=== PATIENT | female | born 1970 | race Hispanic/Latino ===

== ENCOUNTER 2018-05-16 10:47 | Emergency (ER) | payer MEDICARE, OTHER ==
[~2018-05-16] VITALS: Ht 157.5 cm; Wt 103.9 kg
[~2018-05-16 10:47] MED LIST: ADVAIR 500-501 EACH IH; BACLOFEN10 MG PO; CARAFATE1 GM/10 ML PO; CARBAMAZEPINE PO; CETIRIZINE HCL10 MG PO; DICYCLOMINE HCL10 MG PO; DIOVAN160 MG PO; ENDOCET 10-3251 EACH PO; FUROSEMIDE40 MG PO; GABAPENTIN300 MG PO; GI cocktail PO; HYDROCHLOROTHIA25 MG PO; HYDROXYZINE HCL25 MG PO; IPRAT-ALBUT 0.5-3 ML INH; LIDOCAINE TOPICAL TOP; Linzess PO; MONTELUKAST SOD10 MG PO; MOVANTIK PO; MS CONTIN30 MG PO; MULTIVITAMIN PO; NALOXONE IM; OMEGA-3 FISH1000 MG PO; OMEPRAZOLE40 MG PO; PANTOPRAZOLE SO40 MG PO; PHENDIMETRAZINE35 MG PO; PROAIR HFA INH8.5 GM INH; SERTRALINE HCL100 MG PO; SINGULAIR10 MG; STOOL SOFTENER100 MG PO; SUMATRIPTAN SUC25 MG PO; SYMBICORT 16010.2 GM INH; TIZANIDINE HCL4 MG PO; VITAMIN C500 M1 PO; XOPENEX HFA15 G1 IH; Z METHOCARBAMOL PO; Z.0.COLACE100 MG PO; Z.0.MELOXICAM15 MG PO; Z.0.NEXIUM40 MG PO; Z.0.NORCO 10-325 T1 PO; Z.0.PREMARIN0.625 MG PO; Z.0.SINGULAIR10 MG PO; Z.0.VICODIN HP TAB1 PO; ZOFRAN ODT4 MG PO; [UNRECOGNIZED DRUG - OTHER] PO; [UNRECOGNIZED DRUG - OTHER] PO; lidoderm patch TOP
--- OUTSIDE RECORDS SUMMARY | 2018-05-16 10:51 | XMS REPORT | Summary of Care ---
Author Organization Unknown Address Unknown Phone Unavailable Encounter HQ Rufinar_carmen(FIN) [id number] Date(s): 05/25/14 - 05/25/14 [facility] [address] Discharge Disposition: Home Physician Attending: Linnea Torres MD Reason for Visit 724.4 Problem List Condition Effective Dates Status Health Status Informant Anxiety(Confirmed) Active Asthma(Confirmed) Active Back pain(Confirmed) Active cough(Confirmed) Active Depression(Confirmed Active ) Reflux(Confirmed) Active seizures(Confirmed) Active Short of breath on Active exertion(Confirmed) Allergies, Adverse Reactions, Alerts Substance Reaction Severity Status aspirin Active Bactrim Active Latex Blisters Active penicillin Active sulfa drugs Active Medications No data available for this section Medications Administered During Your Visit No data available for this section Immunizations No data available for this section Social History Social History Type Response Smoking Status Former smoker, Type: Cigarettes, Exposure to Tobacco Smoke None, Cigarette Smoking Last 365 Days No, Reg Smoking Cessation Counseling No
--- OUTSIDE RECORDS SUMMARY | 2018-05-16 10:51 | XMS REPORT | CCD ---
Author Author Auto Generated Organization [facility] Address Unknown Phone Unavailable Care Team Providers Care Manager Bakery Name Role Phone Linnea Torres RP Allergies, Adverse Reactions, Alerts Substance Reaction Status aspirin Active Bactrim Active Latex Blisters Active penicillin Active sulfa drugs Active Medications Medication Instructions Start Date End Date Status Lactated Ringers 1,000 mL, Rate: 25 ml/hr, Infuse 02/26/2012 02/26/2012 Discontinued Injection IV 1,000 over: 40 hr, Route: IV, kg, Total mL Volume: 1,000, Start date: 02/26/12 8:12:00, Duration: 30 day, Stop date: 03/27/12 8:11:00 flumazenil 0.2 mg, 2 mL, Route: IVP, Drug 02/26/2012 02/26/2012 Discontinued form: INJ, PRN, Dosing Weight 104.545, kg, PRN Benzodiazepine Reversal, Initial dose, Start date: 02/26/12 8:51:00, Duration: 5 doses or times, Stop date: Limited # of times naloxone 0.04 mg, 0.1 mL, Route: IVP, Drug 02/26/2012 02/26/2012 Discontinued form: INJ, Q2MIN, Dosing Weight 104.545, kg, PRN Narcotic Reversal, Start date: 02/26/12 8:51:00, Duration: 8 doses or times, Stop date: Limited # of times fentanyl 25 microgram, Route: IVP, Q5Min, 02/26/2012 02/26/2012 Completed Dosing Weight 104.545, kg, PRN Pain Score 4-6, Start date: 02/26/12 8:51:00, Duration: 4 doses or times, Stop date: Limited # of times morphine Sulfate 2 mg, 1 mL, Route: IVP, Drug form: 02/26/2012 02/26/2012 Discontinued INJ, Q5Min, Dosing Weight 104.545, kg, PRN Pain Score 4-6, Start date: 02/26/12 8:51:00, Duration: 8 doses or times, Stop date: Limited # of times hydromorphone 0.5 mg, 0.5 mL, Route: IVP, Drug 02/26/2012 02/26/2012 Discontinued form: SOLN, Q5Min, Dosing Weight 104.545, kg, PRN Pain Score 4-6, Start date: 02/26/12 8:51:00, Duration: 5 doses or times, Stop date: Limited # of times acetaminophen-hydroc 2 tab, Route: PO, Drug Form: TAB, 02/26/2012 02/26/2012 Discontinued odone 325 mg-5 mg Dosing Weight 104.545, kg, Q4H, PRN oral tablet Pain Score 4-6, Start date: 02/26/12 8:51:00, Duration: 30 day, Stop date: 03/27/12 8:50:00 ondansetron 4 mg, Route: IVP, ONCE, Dosing 02/26/2012 02/26/2012 Completed Weight 104.545, kg, PRN Nausea & Vomiting, Start date: 02/26/12 8:51:00 acetaminophen-hydroc 1 tab, Route: PO, Drug Form: TAB, 02/26/2012 02/26/2012 Discontinued odone 325 mg-5 mg Dosing Weight 104.545, kg, Q4H, PRN oral tablet Pain Score 1-3, Start date: 02/26/12 8:51:00, Duration: 30 day, Stop date: 03/27/12 8:50:00 Vital Signs Most recent to oldest [Reference Range]: 1 2 3 Height 157.48 cm (02/26/2012 06:30:00) Systolic Blood Pressure [90-140 mmHg] 117 mmHg (02/26/2012 09:30:00) 115 mmHg (02/26/2012 09:15:00) 138 mmHg (02/26/2012 09:00:00) Diastolic Blood Pressure [60-90 mmHg] 51 mmHg *LOW* (02/26/2012 09:30:00) 74 mmHg (02/26/2012 09:15:00) 82 mmHg (02/26/2012 09:00:00) Respiratory Rate [14-20 BRMIN] 12 BRMIN *LOW* (02/26/2012 09:30:00) 14 BRMIN (02/26/2012 09:15:00) 11 BRMIN *LOW* (02/26/2012 09:00:00) Peripheral Pulse Rate [60-100 bpm] 72 bpm (02/26/2012 06:30:00) Weight 104.545 kg (02/26/2012 06:30:00)
--- OUTSIDE RECORDS SUMMARY | 2018-05-16 10:51 | XMS REPORT | Summary of Care ---
Author Author [facility] [place] Organization [facility] [place] Address Unknown Phone Unavailable Encounter HQ Madeleine_carmen(FIN) [id number] Date(s): 05/31/16 - 05/31/16 [facility] [place] [address] [place] [address] [phone] Discharge Disposition: Home or Self Care Attending Physician: Rk Whiteside MD Vital Signs No data available for this section Problem List Condition Effective Dates Status Health Status Informant Anxiety(Confirmed) Active Asthma(Confirmed) Active Back pain(Confirmed) Active Depression(Confirmed Active ) Reflux(Confirmed) Active Short of breath on Active exertion(Confirmed) Allergies, Adverse Reactions, Alerts Substance Reaction Severity Status aspirin Active Bactrim Active Latex Blisters Active penicillin Active sulfa drugs Active Medications No data available for this section Results No data available for this section Immunizations No data available for this section Procedures Procedure Date Related Diagnosis Body Site Appendectomy Bladder operation Cholecystectomy Fusion of lumbar spine Hernia repair Hysterectomy Procedure1 1multiple back procedures Social History Social History Type Response Smoking Status Former smoker; Type: Cigarettes; Exposure to Tobacco Smoke None; Cigarette Smoking Last 365 Days No; Reg Smoking Cessation Counseling No Assessment and Plan No data available for this section
--- OUTSIDE RECORDS SUMMARY | 2018-05-16 10:51 | XMS REPORT | Summary of Care ---
Author Organization Unknown Address Unknown Phone Unavailable Encounter HQ Madeleine_carmen(FIN) [id number] Date(s): 10/20/14 - 10/20/14 [facility] [address] [place] [address]- [phone] Discharge Disposition: Home Physician Attending: Physician, Non Associated MD Vital Signs No data available for [...]
--- OUTSIDE RECORDS SUMMARY | 2018-05-16 10:51 | XMS REPORT | Summary of Care ---
Author Author [facility] Organization [facility] Address Unknown Phone Unavailable Encounter HQ Madeleine_carmen(FANNIE) [id number] Date(s): 06/25/16 - 06/25/16 [facility] [address] [place] [address]- Discharge Disposition: Home or Self Care Attending Physician: Linnea Torres MD Admitting Physician: Linnea Torres MD Vital Signs No data available for [...]
--- OUTSIDE RECORDS SUMMARY | 2018-05-16 10:51 | XMS REPORT | Summary of Care ---
Author Organization Unknown Address Unknown Phone Unavailable Encounter HQ Encntr_alidarvin(FIN) [id number] Date(s): 12/30/13 - 12/30/13 [facility] [address] Discharge Disposition: Home Physician Attending: Soniya López MD Physician_Referring: Soniya López MD Reason for Visit 793.80 ABNORMAL FINDING ON MAMMOGRAPHY Problem List Condition Effective Dates Status Health Status Informant Anxiety(Confirmed) Resolved Asthma(Confirmed) Resolved Back pain(Confirmed) Resolved cough(Confirmed) Resolved Depression annual Resolved review(Confirmed) Reflux(Confirmed) Resolved seizures(Confirmed) Resolved Allergies, Adverse Reactions, Alerts Substance Reaction Severity Status aspirin Active Bactrim Active Latex Blisters Active penicillin Active sulfa drugs Active Medications No data available for this section Medications Administered During Your Visit No data available for this section Immunizations No data available for this section Social History Social History Type Response
--- OUTSIDE RECORDS SUMMARY | 2018-05-16 10:51 | XMS REPORT | Summary of Care ---
Author Author [facility] Organization [facility] Address Unknown Phone Unavailable Encounter HQ Rufinar_carmen(FIN) [id number] Date(s): 10/21/16 - 10/21/16 [facility] [address] [place] [address]- Discharge Disposition: Home or Self Care Attending Physician: Rk Whiteside MD Referring Physician: Rk Whiteside MD Vital Signs No data available for this section Problem List Condition Effective Dates Status Health Status Informant Anxiety(Confirmed) Active Asthma(Confirmed) Active Back pain(Confirmed) Active Depression(Confirmed Active ) Reflux(Confirmed) Active Short of breath on Resolved exertion(Confirmed) Allergies, Adverse Reactions, Alerts Substance Reaction Severity Status aspirin Active Bactrim Active Latex Blisters Active lovastatin Active methadone Active penicillin Active sulfa drugs Active Medications No data available for this section Results No data available for this section Immunizations No data available for this section Procedures Procedure Date Related Diagnosis Body Site Appendectomy Bladder operation Cholecystectomy Fusion of lumbar spine Hernia repair Hysterectomy Implantation of electronic stimulator of spine Procedure1 1multiple back procedures Social History Social History Type Response Substance Abuse Use: None. Alcohol Never, Previous treatment: None. Smoking Status Former smoker; Type: Cigarettes; Exposure to Tobacco Smoke None; Cigarette Smoking Last 365 Days No; Reg Smoking Cessation Counseling No Assessment and Plan No data available for this section
--- OUTSIDE RECORDS SUMMARY | 2018-05-16 10:51 | XMS REPORT | CCD ---
Author Author Auto Generated Organization [facility] [place] Address Unknown Phone Unavailable Care Team Providers Care Research Management Associate Name Role Phone Soniya López [phone] Allergies, Adverse Reactions, Alerts Substance Reaction Status aspirin Active Bactrim Active Latex Blisters Active penicillin Active sulfa drugs Active Problem List Condition Effective Dates Status Anxiety Resolved Asthma Resolved Back pain Resolved cough Resolved Depression annual review Resolved Reflux Resolved seizures Resolved
--- OUTSIDE RECORDS SUMMARY | 2018-05-16 10:51 | XMS REPORT | CCD ---
Author Author Auto Generated Organization [facility] Address Unknown Phone Unavailable Care Team Providers Care Anesthesiologist And Critical Care Name Role Phone Linnea Torres RP Allergies, Adverse Reactions, Alerts Substance Reaction Status aspirin Active Bactrim Active Latex Blisters Active penicillin Active sulfa drugs Active Medications Medication Instructions Start Date End Date Status Benadryl 25 mg, Route: IVP, ONCE, PRN 06/26/2011 06/26/2011 Completed Itching, Start date: 06/26/11 11:02:00 lidocaine 1% 0.5 mL, Route: SUB-Q, Drug Form: 06/25/2011 06/26/2011 Discontinued INJ, ONCALL, Start date: 06/25/11 15:00:00, Duration: 1 doses or times Lactated Ringers 1,000 mL, Rate: 25 ml/hr, Infuse 06/25/2011 06/26/2011 Discontinued Injection IV 1,000 over: 40 hr, Route: IV, Total mL Volume: 1,000, Start date: 06/25/11 14:44:00, Duration: 30 day, Stop date: 07/25/11 14:43:00 Ventolin HFA INHALATION, Substitution Allowed, 06/26/2011 Ordered Maintenance Vital Signs Most recent to oldest [Reference Range]: 1 2 3 Height 157.48 cm (06/25/2011 14:44:00) Temperature Oral [96.4-99.1 DegF] 98.1 DegF (06/25/2011 15:08:00) Systolic Blood Pressure [90-140 mmHg] 119 mmHg (06/26/2011 11:30:00) 133 mmHg (06/26/2011 11:00:00) 134 mmHg (06/26/2011 10:45:00) Diastolic Blood Pressure [60-90 mmHg] 65 mmHg (06/26/2011 11:30:00) 64 mmHg (06/26/2011 11:00:00) 81 mmHg (06/26/2011 10:45:00) Respiratory Rate [14-20 BRMIN] 15 BRMIN (06/26/2011 11:00:00) 15 BRMIN (06/26/2011 10:45:00) 20 BRMIN (06/26/2011 08:51:00) Peripheral Pulse Rate [60-100 bpm] 82 bpm (06/26/2011 08:51:00) 70 bpm (06/25/2011 15:08:00) Weight 95.455 kg (06/25/2011 14:44:00)
--- OUTSIDE RECORDS SUMMARY | 2018-05-16 10:51 | XMS REPORT | Summary of Care ---
Author Author [facility] Organization [facility] Address Unknown Phone Unavailable Encounter HQ Rafael(FIN) [id number] Date(s): 07/31/15 - 07/31/15 [facility] [address] [place] [address]- Discharge Disposition: Home Attending Physician: Soniya López MD Vital Signs No data available for [...]
--- OUTSIDE RECORDS SUMMARY | 2018-05-16 10:51 | XMS REPORT | CCD ---
Author Author Auto Generated Organization [facility] Address Unknown Phone Unavailable Care Team Providers Care Fisher Eel Spear Name Role Phone Estefani Giron CP [phone] Zoraida Hughes CP [phone] [employer], Login CP Unavailable Sukhwinder Jamison Prem CP [phone] Adelaide Mendez CP Unavailable Andrzej Torreskeiry RP SYSTEM, SYSTEM CP Unavailable Linda Orlando CP Marco Aguirre CP Unavailable Ronda Pizano CP [phone] Iliana Yen CP Unavailable Brian Drake CP [phone] Allergies, Adverse Reactions, Alerts Substance Reaction Status aspirin ?? Active Bactrim ?? Active penicillin ?? Active sulfa drugs ?? Active Medications Medication Instructions Start Date End Date Status clindamycin 150 mg 1 cap, PO, Q6H, 40 cap, 04/09/2011 ?? Ordered oral capsule Substitution Allowed, CAP ondansetron 4 mg, 2 mL, Route: IVP, Drug form: 04/10/2011 04/10/2011 Discontinued INJ, ONCE, PRN Nausea & Vomiting, Start date: 04/10/11 8:37:00 flumazenil 0.2 mg, 2 mL, Route: IVP, Drug 04/10/2011 04/10/2011 Discontinued form: INJ, PRN, PRN Other -See Comment, Initial dose, Start date: 04/10/11 8:37:00, Duration: 30 day, Stop date: 05/10/11 7:36:00 naloxone 0.04 mg, 0.1 mL, Route: IVP, Drug 04/10/2011 04/10/2011 Discontinued form: INJ, Q2MIN, PRN Narcotic Reversal, Start date: 04/10/11 8:37:00, Duration: 8 doses or times, Stop date: Limited # of times meperidine 12.5 mg, 0.25 mL, Route: IVP, Drug 04/10/2011 04/10/2011 Discontinued form: INJ, Q30Min, PRN Other -See Comment, For shivering, Start date: 04/10/11 8:37:00, Duration: 2 doses or times, Stop date: Limited # of times hydromorphone 0.5 mg, 0.5 mL, Route: IVP, Drug 04/10/2011 04/10/2011 Discontinued form: SOLN, Q5Min, PRN Pain Score 4-6, Start date: 04/10/11 8:37:00, Duration: 5 doses or times, Stop date: Limited # of times fentanyl 25 microgram, 0.5 mL, Route: IVP, 04/10/2011 04/10/2011 Discontinued Drug form: INJ, Q5Min, PRN Pain Score 4-6, Start date: 04/10/11 8:37:00, Duration: 4 doses or times, Stop date: Limited # of times acetaminophen-hydroc 2 tab, Route: PO, Drug Form: TAB, 04/10/2011 04/10/2011 Discontinued odone 325 mg-5 mg Q4H, PRN Pain Score 4-6, Start oral tablet date: 04/10/11 8:37:00, Duration: 30 day, Stop date: 05/10/11 8:36:00 lidocaine 1% 0.5 mL, Route: SUB-Q, Drug Form: 04/10/2011 04/10/2011 Discontinued INJ, ONCALL, Start date: 04/10/11 8:00:00, Duration: 1 doses or times Lactated Ringers 1,000 mL, Rate: 25 ml/hr, Infuse 04/10/2011 04/10/2011 Discontinued Injection IV 1,000 over: 40 hr, Route: IV, Total mL Volume: 1,000, Start date: 04/10/11 7:33:00, Duration: 30 day, Stop date: 05/10/11 7:32:00 Erythrocin Stearate 1 tab, PO, Q8H, 40 tab, 04/09/2011 ?? Ordered Filmtab 250 mg oral Substitution Allowed, TAB tablet Nexium 40 mg oral 1 cap, PO, Daily, 30 cap, 04/09/2011 ?? Ordered delayed release Substitution Allowed capsule [place] 10/325 oral 1 tab, PO, BID, PRN, 24 tab, for 04/09/2011 ?? Ordered tablet pain, Substitution Allowed, Maintenance Vital Signs Most recent to oldest [Reference Range]: 1 2 3 Height 160.02 cm (04/10/2011 07:33:00) ? Temperature Oral [96.4-99.1 DegF] 97.6 DegF (04/10/2011 07:24:00) ? Systolic Blood Pressure [90-140 mmHg] 128 mmHg (04/10/2011 09:15:00) ?? 133 mmHg (04/10/2011 09:00:00) ?? 126 mmHg (04/10/2011 08:45:00) ?? Diastolic Blood Pressure [60-90 mmHg] 60 mmHg (04/10/2011 09:15:00) ?? 55 mmHg *LOW* (04/10/2011 09:00:00) ?? 80 mmHg (04/10/2011 08:45:00) ?? Respiratory Rate [14-20 BRMIN] 18 BRMIN (04/10/2011 09:15:00) ?? 21 BRMIN *HI* (04/10/2011 09:00:00) ?? 20 BRMIN (04/10/2011 08:45:00) ?? Peripheral Pulse Rate [60-100 bpm] 81 bpm (04/10/2011 07:24:00) ? Weight 81.818 kg (04/10/2011 07:33:00) ?
--- OUTSIDE RECORDS SUMMARY | 2018-05-16 10:51 | XMS REPORT ---
Author Author [facility] Address Unknown Phone Unavailable Care Team Providers Care Mortgage Loan Originator Name Role Phone Vimal PATEL Unavailable Unavailable Problems This patient has no known problems. Allergies, Adverse Reactions, Alerts This patient has no known allergies or adverse reactions. Medications This patient has no known medications. Results Test Description Test Time Test Comments Text Results Atomic Results Result Comments CHEST SINGLE (PORTABLE) [place] [address] Patient Name: CHAPINCITO ALVAREZ MR #: [id number] : 1970 Age/Sex: 46/F Req #: [id number] Adm Physician: Ordered by: CAROL PATEL MD Report #: [id number] Location: ER Room/Bed: Procedure: [id number] DX/CHEST SINGLE (PORTABLE) Exam Date: 05/12/17 Exam Time: 1258 REPORT STATUS: Signed PROCEDURE: CHEST SINGLE (PORTABLE) TECHNIQUE: Portable AP chest INDICATION: Chest pain COMPARISON: None. FINDINGS: Lungs are clear and symmetrically inflated. No pleural effusions. Normal heart size and mediastinal contour. Normal skeleton. Indwelling spinal stimulator leads. CONCLUSION: No acute abnormality. Dictated by: Acosta Guthrie M.D. on 05/12/2017 at 13:44 Electronically approved by: Acosta Guthrie M.D. on 05/12/2017 at 13:44 Dictated By: ACOSTA GUTHRIE MD [id number] Transcribed By: ARMANI on 05/12/17 134 COPY TO: CAROL PATEL MD
--- OUTSIDE RECORDS SUMMARY | 2018-05-16 10:51 | XMS REPORT | Summary of Care ---
Author Author [facility] Organization [facility] Address Unknown Phone Unavailable Encounter [facility](FANNIE) [id number] Date(s): 10/28/16 - 10/28/16 [facility] [address] [place] [address]- Discharge Disposition: Home or Self Care Attending Physician: Raul Slade MD Referring Physician: Raul Slade MD Vital Signs 1 2 3 Most recent to oldest [Reference Range]: 157.48 cm (10/10/16 11:04 AM) Height 98.0 DegF (10/10/16 11:04 AM) Temperature Oral [96.4-99.1 DegF] 105/89 mmHg (10/28/16 9:45 AM) 150/65 mmHg *HI* (10/28/16 9:30 AM) 116/67 mmHg (10/28/16 9:00 AM) Blood Pressure [90-140/60-90 mmHg] 20 BRMIN (10/28/16 10:00 AM) 18 BRMIN (10/28/16 9:45 AM) 16 BRMIN (10/28/16 9:15 AM) Respiratory Rate [14-20 BRMIN] 92 bpm (10/10/16 11:04 AM) Peripheral Pulse Rate [60-100 bpm] 104.176 kg (10/10/16 11:04 AM) Weight 42.01 m2 (10/10/16 11:04 AM) Body Mass Index Problem List Condition Effective Dates Status Health Status Informant Anxiety(Confirmed) Active Asthma(Confirmed) Active Back pain(Confirmed) Active Depression(Confirmed Active ) Reflux(Confirmed) Active Short of breath on Resolved exertion(Confirmed) Allergies, Adverse Reactions, Alerts Substance Reaction Severity Status aspirin Active Bactrim Active Latex Blisters Active lovastatin Active methadone Active penicillin Active sulfa drugs Active Medications acetaminophen-oxycodone 325 mg-10 mg oral tablet 2 tab, PO, Q6H, PRN for pain, 0 Refill(s) Start Date: 10/10/16 Stop Date: 10/17/16 Status: Ordered baclofen 20 mg oral tablet 20 mg=1 tab, PO, TID, # 270 tab, 0 Refill(s) Start Date: 10/10/16 Status: Ordered dicyclomine 20 mg, 0 Refill(s) Start Date: 10/10/16 Status: Ordered furosemide 40 mg oral tablet 40 mg=1 tab, PO, Daily, # 30 tab, 0 Refill(s) Start Date: 10/10/16 Status: Ordered Movantik 25 mg oral tablet 25 mg=1 tab, PO, QAM, 0 Refill(s) Start Date: 10/10/16 Status: Ordered naloxone 1 mg/mL injectable solution IV, ONCE, 0 Refill(s) Start Date: 10/10/16 Status: Ordered omeprazole 40 mg oral delayed release capsule 40 mg=1 cap, PO, Daily, # 30 cap, 0 Refill(s) Start Date: 10/10/16 Status: Ordered phentermine 37.5 mg oral tablet 37.5 mg=1 tab, PO, Daily, # 30 tab, 0 Refill(s) Start Date: 10/10/16 Stop Date: 11/09/16 Status: Ordered sertraline 50 mg oral tablet 50 mg=1 tab, PO, Daily, # 30 tab, 0 Refill(s) Start Date: 10/10/16 Status: Ordered Singulair Daily, 0 Refill(s) Start Date: 10/10/16 Status: Ordered Sodium Chloride 0.9% IV 1000 mL 1,000 mL, Rate: 25 ml/hr, Infuse over: 40 hr, Route: IV, Dosing Weight 104.176 k g, Total Volume: 1,000, Start date: 10/28/16 7:02:00 CDT, Duration: 30 day, Stop date: 11/27/16 7:01:00 CDT Start Date: 10/28/16 Stop Date: 10/28/16 Status: Discontinued Results ELECTROLYTES Most recent to 1 oldest [Reference Range]: Sodium Lvl [135-145 139 mEq/L mEq/L] (10/10/16 11:13 AM) Potassium Lvl 3.5 mEq/L [3.5-5.1 mEq/L] (10/10/16 11:13 AM) Chloride Lvl [95-109 102 mEq/L mEq/L] (10/10/16 11:13 AM) CO2 [24-32 mEq/L] 26 mEq/L (10/10/16 11:13 AM) AGAP [10.0-20.0 14.5 mEq/L mEq/L] (10/10/16 11:13 AM) Immunizations No data available for this section [...]
--- OUTSIDE RECORDS SUMMARY | 2018-05-16 10:51 | XMS REPORT | Summary of Care ---
Author Author [facility] Organization [facility] Address Unknown Phone Unavailable Encounter [facility](FANNIE) [id number] Date(s): 04/21/17 - 04/21/17 [facility] [address] [place] [address]- [phone] Discharge Diagnosis: Acute bronchitis Discharge Disposition: Home or Self Care Attending Physician: Zay Villarreal MD Vital Signs 1 2 3 Most recent to oldest [Reference Range]: 157.48 cm (04/21/17 8:50 AM) Height 98.4 DegF (04/21/17 1:47 PM) 98.4 DegF (04/21/17 8:50 AM) Temperature Oral [96.4-99.1 DegF] 115/57 mmHg (04/21/17 1:47 PM) 96/55 mmHg (04/21/17 12:53 PM) 99/50 mmHg (04/21/17 11:30 AM) Blood Pressure [90-140/60-90 mmHg] 15 BRMIN (04/21/17 1:47 PM) 15 BRMIN (04/21/17 12:53 PM) 14 BRMIN (04/21/17 11:30 AM) Respiratory Rate [14-20 BRMIN] 77 bpm (04/21/17 8:50 AM) Peripheral Pulse Rate [60-100 bpm] 109.091 kg (04/21/17 8:50 AM) Weight 43.99 m2 (04/21/17 8:50 AM) Body Mass Index Problem List Condition Effective Dates Status Health Status Informant Anxiety(Confirmed) Active Asthma(Confirmed) Active Back pain(Confirmed) Active Depression(Confirmed Active ) Reflux(Confirmed) Active Short of breath on Resolved exertion(Confirmed) Allergies, Adverse Reactions, Alerts Substance Reaction Severity Status aspirin Active Bactrim Active Latex Blisters Active lovastatin Active methadone Active penicillin Active sulfa drugs Active Medications albuterol-ipratropium 2.5-0.5 mg inhalation solution 3 mL, Route: NEB, Drug Form: SOLN, Dosing Weight 109.091, kg, ONCE, STAT, Start date: 04/21/17 10:06:00 [employer], Stop date: 04/21/17 10:06:00 [employer] Start Date: 04/21/17 Stop Date: 04/21/17 Status: Completed azithromycin 250 mg oral tablet See Instructions, Take 2 tablets by mouth the first day then 1 tablet by mouth d aily on days 2-5., X 5 day, # 6 tab, 0 Refill(s) Start Date: 04/21/17 Stop Date: 04/26/17 Status: Ordered methylPREDNISolone SODium SUCCinate 125 mg, 2 mL, Route: IVP, Drug form: INJ, ONCE, Dosing Weight 109.091, kg, Prior ity: STAT, Start date: 04/21/17 10:06:00 [employer], Stop date: 04/21/17 10:06:00 [employer] Notes: (Same as:Solu-MEDROL, A-Methapred) Start Date: 04/21/17 Stop Date: 04/21/17 Status: Completed NS (Bolus) IV 1,000 mL, 1,000 ml/hr, Infuse Over: 1 hr, Route: IV, ONCE, Priority: STAT, Dosin g Weight 109.091 kg, Start date: 04/21/17 10:52:00 [employer], Duration: 1 doses or mary es, Stop date: 04/21/17 10:52:00 [employer] Start Date: 04/21/17 Stop Date: 04/21/17 Status: Completed predniSONE 50 mg oral tablet 50 mg=1 tab, PO, Daily, X 5 day, # 5 tab, 0 Refill(s) Start Date: 04/21/17 Stop Date: 04/26/17 Status: Ordered Results ELECTROLYTES Most recent to 1 oldest [Reference Range]: Sodium Lvl [135-145 133 mEq/L mEq/L] *LOW* (04/21/17 10:42 AM) Potassium Lvl 3.8 mEq/L [3.5-5.1 mEq/L] (04/21/17 10:42 AM) Chloride Lvl [95-109 94 mEq/L mEq/L] *LOW* (04/21/17 10:42 AM) CO2 [24-32 mEq/L] 31 mEq/L (04/21/17 10:42 AM) AGAP [10.0-20.0 11.8 mEq/L mEq/L] (04/21/17 10:42 AM) CHEM PANEL Most recent to 1 oldest [Reference Range]: Creatinine Lvl 0.78 mg/dL [0.50-1.40 mg/dL] (04/21/17 10:42 AM) eGFR 92 mL/min/1.73m2 1 *NA* (04/21/17 10:42 AM) BUN [7-22 mg/dL] 13 mg/dL (04/21/17 10:42 AM) B/C Ratio [6-25] 17 (04/21/17 10:42 AM) Glucose Lvl [70-99 99 mg/dL mg/dL] (04/21/17 10:42 AM) Total Protein 8.2 g/dL [6.4-8.4 g/dL] (04/21/17 10:42 AM) Albumin Lvl [3.5-5.0 3.8 g/dL g/dL] (04/21/17 10:42 AM) Globulin [2.7-4.2 4.4 g/dL g/dL] *HI* (04/21/17 10:42 AM) A/G Ratio [0.7-1.6] 0.9 (04/21/17 10:42 AM) Calcium Lvl 9.2 mg/dL [8.5-10.5 mg/dL] (04/21/17 10:42 AM) ALT [0-65 unit/L] 21 unit/L (04/21/17 10:42 AM) AST [0-37 unit/L] 19 unit/L (04/21/17 10:42 AM) Alk Phos [39-136 158 unit/L unit/L] *HI* (04/21/17 10:42 AM) Bili Total [0.2-1.3 0.7 mg/dL mg/dL] (04/21/17 10:42 AM) 1Result Comment: The eGFR is calculated using the CKD-EPI formula. In most young, healthy individuals the eGFR will be >90 mL/min/1.73m2. The eGFR declines with age. An eGFR of 60-89 may be normal in some populations, particularly the elderly, for whom the CKD-EPI formula has not been extensively validated. Use of the eGFR is not recommended in the following populations: Individuals with unstable creatinine concentrations, including patients and those with serious co-morbid conditions. Patients with extremes in muscle mass or diet. The data above are obtained from the National Kidney Disease Education Program ( NKDEP) which additionally recommends that when the eGFR is used in patients with extremes of body mass index for purposes of drug dosing, the eGFR should be mul tiplied by the estimated BMI. CARDIAC ENZYMES Most recent to 1 oldest [Reference Range]: Total CK [12-191 57 unit/L unit/L] (04/21/17 10:42 AM) CK MB [0.5-3.6 <0.5 ng/mL ng/mL] (04/21/17 10:42 AM) CK MB Index <0.9 [0.0-2.5] (04/21/17 10:42 AM) Troponin-I <0.02 ng/mL [0.00-0.40 ng/mL] (04/21/17 10:42 AM) ENDOCRINOLOGY Most recent to 1 oldest [Reference Range]: hCG Tot <1 mIU/mL *NA* (04/21/17 10:42 AM) HEMATOLOGY Most recent to 1 oldest [Reference Range]: WBC [3.7-10.4 K/CMM] 9.4 K/CMM (04/21/17 10:42 AM) RBC [4.20-5.40 4.20 M/CMM M/CMM] (04/21/17 10:42 AM) Hgb [12.0-16.0 g/dL] 12.2 g/dL (04/21/17 10:42 AM) Hct [36.0-48.0 %] 36.5 % (04/21/17 10:42 AM) MCV [80.0-98.0 fL] 87.0 fL (04/21/17 10:42 AM) MCH [27.0-31.0 pg] 29.1 pg (04/21/17 10:42 AM) MCHC [32.0-36.0 33.5 g/dL g/dL] (04/21/17 10:42 AM) RDW [11.5-14.5 %] 14.1 % (04/21/17 10:42 AM) Platelet [133-450 374 K/CMM K/CMM] (04/21/17 10:42 AM) MPV [7.4-10.4 fL] 8.7 fL (04/21/17 10:42 AM) Segs [45.0-75.0 %] 79.0 % *HI* (04/21/17 10:42 AM) Lymphocytes 11.2 % [20.0-40.0 %] *LOW* (04/21/17 10:42 AM) Monocytes [2.0-12.0 7.5 % %] (04/21/17 10:42 AM) Eosinophils [0.0-4.0 1.8 % %] (04/21/17 10:42 AM) Basophils [0.0-1.0 0.5 % %] (04/21/17 10:42 AM) Segs-Bands # 7.4 K/CMM [1.5-8.1 K/CMM] (04/21/17 10:42 AM) Lymphocytes # 1.1 K/CMM [1.0-5.5 K/CMM] (04/21/17 10:42 AM) Monocytes # [0.0-0.8 0.7 K/CMM K/CMM] (04/21/17 10:42 AM) Eosinophils # 0.2 K/CMM [0.0-0.5 K/CMM] (04/21/17 10:42 AM) Immunizations No data available for this [...]
--- OUTSIDE RECORDS SUMMARY | 2018-05-16 10:51 | XMS REPORT | CCD ---
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 Name Role Phone Linnea Torres RP Allergies, Adverse Reactions, Alerts Substance Reaction Status aspirin Active Bactrim Active Latex Blisters Active penicillin Active sulfa drugs Active Problem List Condition Effective Dates Status Anxiety Resolved Asthma Resolved Back pain Resolved cough Resolved Depression annual review Resolved Reflux Resolved seizures Resolved Medications Medication Instructions Start Date End Date Status flumazenil 0.2 mg, 2 mL, Route: IVP, Drug 07/21/2012 07/21/2012 Discontinued form: INJ, PRN, Dosing Weight 90.909, kg, PRN Benzodiazepine Reversal, Initial dose, Start date: 07/21/12 8:30:00, Duration: 30 day, Stop date: 08/20/12 8:29:00 naloxone 0.04 mg, 0.04 mL, Route: IVP, Drug 07/21/2012 07/21/2012 Discontinued form: INJ, Q2MIN, Dosing Weight 90.909, kg, PRN Narcotic Reversal, Start date: 07/21/12 8:30:00, Duration: 8 doses or times, Stop date: Limited # of times diphenhydrAMINE 12.5 mg, 0.25 mL, Route: IVP, Drug 07/21/2012 07/21/2012 Discontinued form: INJ, PRN, Dosing Weight 90.909, kg, PRN Itching, Start date: 07/21/12 8:30:00, Duration: 30 day, Stop date: 08/20/12 8:29:00 ondansetron 4 mg, 2 mL, Route: IVP, Drug form: 07/21/2012 07/21/2012 Discontinued INJ, ONCE, Dosing Weight 90.909, kg, PRN Nausea & Vomiting, Start date: 07/21/12 8:30:00 dexamethasone 4 mg, 1 mL, Route: IVP, Drug form: 07/21/2012 07/21/2012 Discontinued INJ, ONCE, Dosing Weight 90.909, kg, PRN Nausea & Vomiting, Start date: 07/21/12 8:30:00 labetalol 5 mg, 1 mL, Route: IVP, Drug form: 07/21/2012 07/21/2012 Discontinued INJ, Q5Min, Dosing Weight 90.909, kg, PRN Elevated BP, Start date: 07/21/12 8:30:00, Duration: 5 doses or times, Stop date: Limited # of times niCARdipine 0.25 mg, 0.1 mL, Route: IVP, Drug 07/21/2012 07/21/2012 Discontinued form: INJ, Q5Min, Dosing Weight 90.909, kg, PRN Elevated BP, Start date: 07/21/12 8:30:00, Duration: 4 doses or times, Stop date: Limited # of times metoprolol 1 mg, 1 mL, Route: IVP, Drug form: 07/21/2012 07/21/2012 Discontinued INJ, Q5Min, Dosing Weight 90.909, kg, PRN Elevated BP, Start date: 07/21/12 8:30:00, Duration: 5 doses or times, Stop date: Limited # of times hydrALAZINE 5 mg, 0.25 mL, Route: IVP, Drug 07/21/2012 07/21/2012 Discontinued form: INJ, Q5Min, Dosing Weight 90.909, kg, PRN Elevated BP, Start date: 07/21/12 8:30:00, Duration: 4 doses or times, Stop date: Limited # of times morphine Sulfate 2 mg, 1 mL, Route: IVP, Drug form: 07/21/2012 07/21/2012 Discontinued INJ, Q5Min, Dosing Weight 90.909, kg, PRN Pain Score 4-6, Start date: 07/21/12 8:30:00, Duration: 8 doses or times, Stop date: Limited # of times meperidine 12.5 mg, 0.25 mL, Route: IVP, Drug 07/21/2012 07/21/2012 Discontinued form: INJ, Q30Min, Dosing Weight 90.909, kg, PRN Other -See Comment, For shivering, Start date: 07/21/12 8:30:00, Duration: 2 doses or times, Stop date: Limited # of times hydromorphone 0.5 mg, 0.5 mL, Route: IVP, Drug 07/21/2012 07/21/2012 Discontinued form: SOLN, Q5Min, Dosing Weight 90.909, kg, PRN Pain Score 4-6, Start date: 07/21/12 8:30:00, Duration: 5 doses or times, Stop date: Limited # of times fentanyl 25 microgram, 0.5 mL, Route: IVP, 07/21/2012 07/21/2012 Discontinued Drug form: INJ, Q5Min, Dosing Weight 90.909, kg, PRN Pain Score 4-6, Start date: 07/21/12 8:30:00, Duration: 4 doses or times, Stop date: Limited # of times Lactated Ringers 1,000 mL, Rate: 25 ml/hr, Infuse 07/21/2012 07/21/2012 Discontinued Injection IV 1,000 over: 40 hr, Route: IV, kg, Total mL Volume: 1,000, Start date: 07/21/12 6:38:00, Duration: 30 day, Stop date: 08/20/12 6:37:00 morphine 15 mg oral 15 mg, 1 cap, PO, BID, PRN, Pain, 07/20/2012 Ordered capsule Substitution Allowed, CAP tizanidine 4 mg oral 8 mg, 2 tab, PO, TID, 180 tab, 07/20/2012 Ordered tablet Substitution Allowed, TAB Vital Signs Most recent to oldest [Reference Range]: 1 2 3 Height 157.48 cm (07/20/2012 14:13:00) Temperature Oral [96.4-99.1 DegF] 98.7 DegF (07/20/2012 14:06:00) Systolic Blood Pressure [90-140 mmHg] 114 mmHg (07/21/2012 09:00:00) 108 mmHg (07/21/2012 08:45:00) 119 mmHg (07/21/2012 08:30:00) Diastolic Blood Pressure [60-90 mmHg] 54 mmHg *LOW* (07/21/2012 09:00:00) 59 mmHg *LOW* (07/21/2012 08:45:00) 68 mmHg (07/21/2012 08:30:00) Respiratory Rate [14-20 BRMIN] 17 BRMIN (07/21/2012 09:00:00) 15 BRMIN (07/21/2012 08:45:00) 24 BRMIN *HI* (07/21/2012 08:30:00) Peripheral Pulse Rate [60-100 bpm] 85 bpm (07/21/2012 06:38:00) 78 bpm (07/20/2012 14:06:00) Weight 90.909 kg (07/20/2012 14:13:00) Results CHEMISTRY Most recent to oldest [Reference Range]: 1 U Preg [Negative] Negative (07/21/2012 05:30:00) Procedures Procedures Date Related Diagnosis Procedure 1 1multiple back procedures
--- OUTSIDE RECORDS SUMMARY | 2018-05-16 10:51 | XMS REPORT | Summary of Care ---
Author Organization Unknown Address Unknown Phone Unavailable Encounter [facility](FANNIE) [id number] Date(s): 04/15/14 - 04/15/14 [facility] [address] [address] [place] [address] Discharge Disposition: Home Physician Attending: Linnea Torres MD Physician_Referring: Linnea Torres MD Reason for Visit ICD 338.4 724.4 / CPT 71851 [id number] Vital Signs 1 2 3 Most recent to oldest [Reference Range]: 157.48 cm (04/13/14 3:34 PM) Height 98.5 DegF (04/13/14 3:34 PM) Temperature Oral [96.4-99.1 DegF] 131 mmHg (04/15/14 2:00 PM) 110 mmHg (04/15/14 1:30 PM) 94 mmHg (04/15/14 1:15 PM) Systolic Blood Pressure [90-140 mmHg] 84 mmHg (04/15/14 2:00 PM) 56 mmHg *LOW* (04/15/14 1:30 PM) 54 mmHg *LOW* (04/15/14 1:15 PM) Diastolic Blood Pressure [60-90 mmHg] 12 BRMIN *LOW* (04/15/14 1:45 PM) 20 BRMIN (04/15/14 1:30 PM) 21 BRMIN *HI* (04/15/14 1:15 PM) Respiratory Rate [14-20 BRMIN] 90.909 kg (04/13/14 3:34 PM) Weight 36.66 m2 (04/13/14 3:34 PM) Body Mass Index Problem List Condition Effective Dates Status Health Status Informant Anxiety(Confirmed) Active Asthma(Confirmed) Active Back pain(Confirmed) Active cough(Confirmed) Active Depression(Confirmed Active ) Reflux(Confirmed) Active seizures(Confirmed) Active Short of breath on Active exertion(Confirmed) Allergies, Adverse Reactions, Alerts Substance Reaction Severity Status aspirin Active Bactrim Active Latex Blisters Active penicillin Active sulfa drugs Active Medications acetaminophen 1,000 mg, Route: IVPB, Drug form: INJ, ONCE, Dosing Weight 90.909, kg, PRN Pain Score 1-3, Start date: 04/15/14 12:55:00, Duration: 1 doses or times, Stop date: Limited # of times Start Date: 04/15/14 Stop Date: 04/15/14 Status: Discontinued clindamycin 600 mg, Route: IVPB, ONCE, Dosing Weight 90.909, kg, Start date: 04/15/14 10:42: 00, Stop date: 04/15/14 10:42:00 Start Date: 04/15/14 Stop Date: 04/15/14 Status: Completed clonazePAM 0.5 mg, PO, 0 Refill(s) Start Date: 04/13/14 Status: Ordered Diovan 160 mg oral tablet 160 mg=1 tab, PO, Daily, 0 Refill(s) Start Date: 04/13/14 Status: Ordered diphenhydrAMINE 12.5 mg, Route: IVP, Drug form: INJ, Q6H, Dosing Weight 90.909, kg, PRN Itching, Start date: 04/15/14 12:55:00, Duration: 30 day, Stop date: 05/15/14 12:54:00 Start Date: 04/15/14 Stop Date: 04/15/14 Status: Discontinued fentaNYL 25 microgram, Route: IVP, Q5Min, Dosing Weight 90.909, kg, PRN Pain Score 4-6, S tart date: 04/15/14 12:55:00, Duration: 4 doses or times, Stop date: Limited # o f times Start Date: 04/15/14 Stop Date: 04/15/14 Status: Discontinued fentaNYL 50 microgram, Route: IVP, Q5Min, Dosing Weight 90.909, kg, PRN Pain Score 7-10, Start date: 04/15/14 12:55:00, Duration: 2 doses or times, Stop date: Limited # of times Start Date: 04/15/14 Stop Date: 04/15/14 Status: Discontinued Flexeril 10 mg oral tablet 10 mg=1 tab, PO, TID, 0 Refill(s) Start Date: 04/13/14 Status: Ordered flumazenil 0.2 mg, Route: IVP, PRN, Dosing Weight 90.909, kg, PRN Benzodiazepine Reversal, Initial dose, Start date: 04/15/14 12:55:00, Duration: 30 day, Stop date: 11:54:00 Start Date: 04/15/14 Stop Date: 04/15/14 Status: Discontinued gabapentin 300 mg, PO, BID, 0 Refill(s) Start Date: 04/13/14 Status: Ordered hydrochlorothiazide 12.5 mg, PO, 0 Refill(s) Start Date: 04/13/14 Status: Ordered hydromorphone 0.5 mg, Route: IVP, Q5Min, Dosing Weight 90.909, kg, PRN Pain Score 7-10, Start date: 04/15/14 12:55:00, Duration: 4 doses or times, Stop date: Limited # of mary es Start Date: 04/15/14 Stop Date: 04/15/14 Status: Discontinued Lactated Ringers Injection IV 1000 mL 1,000 mL, Rate: 125 ml/hr, Infuse over: 8 hr, Route: IV, Dosing Weight 90.909 kg , Total Volume: 1,000, Start date: 04/15/14 12:55:00, Duration: 30 day, Stop elham e: 05/15/14 12:54:00 Start Date: 04/15/14 Stop Date: 04/15/14 Status: Discontinued Lactated Ringers Injection IV 1000 mL 1,000 mL, Rate: 25 ml/hr, Infuse over: 40 hr, Route: IV, Dosing Weight 90.909 kg , Total Volume: 1,000, Start date: 04/15/14 10:38:00, Duration: 30 day, Stop elham e: 05/15/14 10:37:00 Start Date: 04/15/14 Stop Date: 04/15/14 Status: Discontinued meperidine 12.5 mg, Route: IVP, Q30Min, Dosing Weight 90.909, kg, PRN Other -See Comment, F or shivering, Start date: 04/15/14 12:55:00, Duration: 2 doses or times, Stop da te: Limited # of times Start Date: 04/15/14 Stop Date: 04/15/14 Status: Discontinued Mobic 15 mg oral tablet 15 mg=1 tab, PO, Daily, 0 Refill(s) Start Date: 04/13/14 Status: Ordered morphine Sulfate 4 mg, Route: IVP, Q5Min, Dosing Weight 90.909, kg, PRN Pain Score 7-10, Start da te: 04/15/14 12:55:00, Duration: 3 doses or times, Stop date: Limited # of times Start Date: 04/15/14 Stop Date: 04/15/14 Status: Discontinued morphine Sulfate 2 mg, Route: IVP, Q5Min, Dosing Weight 90.909, kg, PRN Pain Score 4-6, Start elham e: 04/15/14 12:55:00, Duration: 5 doses or times, Stop date: Limited # of times Start Date: 04/15/14 Stop Date: 04/15/14 Status: Discontinued naloxone 0.04 mg, Route: IVP, Q2MIN, Dosing Weight 90.909, kg, PRN Narcotic Reversal, Sta rt date: 04/15/14 12:55:00, Duration: 8 doses or times, Stop date: Limited # of times Start Date: 04/15/14 Stop Date: 04/15/14 Status: Discontinued Neurontin 300 mg oral capsule 300 mg=1 cap, PO, TID, 0 Refill(s) Start Date: 04/13/14 Status: Ordered ondansetron 4 mg, Route: IVP, ONCE, Dosing Weight 90.909, kg, PRN Nausea & Vomiting, Start date: 04/15/14 12:55:00 Start Date: 04/15/14 Stop Date: 04/15/14 Status: Discontinued oxyCODONE 5 mg, Route: PO, Drug form: TAB, Q4H, Dosing Weight 90.909, kg, PRN Pain Score 4 -6, Start date: 04/15/14 12:55:00, Duration: 30 day, Stop date: 05/15/14 12:54:0 0 Start Date: 04/15/14 Stop Date: 04/15/14 Status: Discontinued oxyCODONE 10 mg, Route: PO, Drug form: TAB, Q4H, Dosing Weight 90.909, kg, PRN Pain Score 7-10, Start date: 04/15/14 12:55:00, Duration: 30 day, Stop date: 05/15/14 12:54 :00 Start Date: 04/15/14 Stop Date: 04/15/14 Status: Discontinued oxyCODONE 5 mg immediate release 10 mg, Route: PO, Drug form: TAB, ONCE, Dosing Weight 90.909, kg, PRN as needed for pain, Start date: 04/15/14 13:32:00 Start Date: 04/15/14 Stop Date: 04/15/14 Status: Completed oxyCODONE 5 mg/5 mL oral solution 5 mg, Route: NG, Drug form: LIQ, Q4H, Dosing Weight 90.909, kg, PRN Pain Score 4 -6, Start date: 04/15/14 12:55:00, Duration: 30 day, Stop date: 05/15/14 12:54:0 0 Start Date: 04/15/14 Stop Date: 04/15/14 Status: Discontinued oxyCODONE 5 mg/5 mL oral solution 10 mg, Route: NG, Drug form: LIQ, Q4H, Dosing Weight 90.909, kg, PRN Pain Score 7-10, Start date: 04/15/14 12:55:00, Duration: 30 day, Stop date: 05/15/14 12:54 :00 Start Date: 04/15/14 Stop Date: 04/15/14 Status: Discontinued promethazine 6.25 mg, Route: IVPB, ONCE, Dosing Weight 90.909, kg, PRN Nausea & Vomiting, Start date: 04/15/14 12:55:00 Start Date: 04/15/14 Stop Date: 04/15/14 Status: Discontinued SEROquel 25 mg oral tablet 25 mg=1 tab, PO, TID, 0 Refill(s) Start Date: 04/13/14 Status: Ordered sertraline 100 mg oral tablet 100 mg=1 tab, PO, Daily, 0 Refill(s) Start Date: 04/13/14 Status: Ordered Zofran 4 mg oral tablet 4 mg=1 tab, PO, Q8H, as needed for nausea/vomiting, 0 Refill(s) Start Date: 04/13/14 Status: Ordered ZyrTEC 10 mg oral tablet 10 mg=1 tab, PO, Daily, 0 Refill(s) Start Date: 04/13/14 Status: Ordered Results ELECTROLYTES Most recent to 1 oldest [Reference Range]: Sodium Lvl [135-145 140 mEq/L mEq/L] (04/13/14 4:19 PM) Potassium Lvl 3.5 mEq/L [3.5-5.1 mEq/L] (04/13/14 4:19 PM) Chloride Lvl [95-109 102 mEq/L mEq/L] (04/13/14 4:19 PM) CO2 [24-32 mEq/L] 28 mEq/L (04/13/14 4:19 PM) AGAP [10.0-20.0 13.5 mEq/L mEq/L] (04/13/14 4:19 PM) Medications Administered During Your Visit No data available for this section Immunizations No data available for this section Procedures Procedure Type Body Site Date of Procedure Related Diagnosis Appendectomy Bladder operation Cholecystectomy Fusion of lumbar spine Hernia repair Hysterectomy Social History Social History Type Response Smoking Status Former smoker, Type: Cigarettes, Exposure to Tobacco Smoke None, Cigarette Smoking Last 365 Days No, Reg Smoking Cessation Counseling No
--- OUTSIDE RECORDS SUMMARY | 2018-05-16 10:51 | XMS REPORT | Continuity of Care Document ---
Author Author [facility] Interface Address Unknown Phone Unavailable Problems Problem Status Onset Date Classification Date Reported Comments Source DX: M54.16 Active 03/25/2018 [facility] DX: RT MASS CALLBACKS Active 02/12/2018 [facility] ROUTINE SCREENING LAST MMG W/ Active 02/05/2018 [facility] Discharge Diagnosis: Acute bronchitis 04/21/2017 04/24/2017 [facility] NAUSEA/VOMITING Active 04/21/2017 [facility] UNK Active 10/02/2016 [facility] DX: 6 MONTH FOLLOWUP Active 08/30/2016 [facility] QUITA HIGGINS #[id number] FAX#523.67 Active 07/19/2015 [facility] 793.80 QUITA ALFARO PHONE#[id number] Active 09/27/2014 [facility] ICD 338.4 724.4 / CPT 85357 [id number] Active 03/28/2014 [facility] 793.80 ABNORMAL FINDING ON MAMMOGRAPHY Active 12/20/2013 [facility] V76.11 - SCREEN MAMMOGRA Active 09/27/2013 [facility] 715.09 - GENERAL OSTEOAR Active 09/21/2012 [facility] 721.3 Active 07/13/2012 [facility] ICD 721.3 / CPT 51102 [id number] Active 02/19/2012 [facility] INJECTION EPIDURAL STEROID BLOCK Active 04/03/2011 [facility] Anxiety Active Problem 04/24/2017 [facility] Asthma Active Problem 04/24/2017 [facility] [place] Back pain Active Problem 04/24/2017 [facility] [place] Depression Active Problem 04/24/2017 [facility] [place] Reflux Active Problem 04/24/2017 [facility] [place] Short of breath on exertion Resolved Problem 04/24/2017 [facility] [place] Anxiety Resolved Problem 11/06/2012 [facility] Asthma Resolved Problem 11/06/2012 [facility] [place] Back pain Resolved Problem 11/06/2012 [facility] [place] Depression annual review Resolved Problem 11/06/2012 [facility] [place] Reflux Resolved Problem 11/06/2012 [facility] [place] cough Active Problem 05/28/2014 [facility] [place] seizures Active Problem 05/28/2014 [facility] [place] Depression annual review Resolved Problem 01/01/2014 [facility] 724.4 Active [facility] OTH ABN AND INCONCLUSIVE FINDINGS ON DX Active [facility] ENCNTR FOR F/U EXAM AFT TRTMT FOR COND O Active [facility] RADICULOPATHY, LUMBAR REGION Active [facility] RADICULOPATHY, LUMBAR REGION Active [facility] Medications Medication Details Route Status Patient Instructions Ordering Provider Order Date Source predniSONE 50 mg oral tablet 50 mg=1 tab, PO, Daily, X 5 day, # 5 tab, 0 Refill(s) Active 04/21/2017 [facility] azithromycin 250 mg oral tablet See Instructions, Take 2 tablets by mouth the first day then 1 tablet by mouth daily on days 2-5., X 5 day, # 6 tab, 0 Refill(s) Active 04/21/2017 [facility] NS (Bolus) IV 1,000 mL, 1,000 ml/hr, Infuse Over: 1 hr, Route: IV, ONCE, Priority: STAT, Dosing Weight 109.091 kg, Start date: 04/21/17 10:52:00 NIPPLE MAKER, Duration: 1 doses or times, Stop date: 04/21/17 10:52:00 NIPPLE MAKER Inactive 04/21/2017 [facility] methylPREDNISolone SODium SUCCinate 125 mg, 2 mL, Route: IVP, Drug form: INJ, ONCE, Dosing Weight 109.091, kg, Priority: STAT, Start date: 04/21/17 10:06:00 NIPPLE MAKER, Stop date: 04/21/17 10:06:00 CSTNotes: (Same as:Solu-MEDROL, A-Methapred) Inactive 04/21/2017 [facility] albuterol-ipratropium 2.5-0.5 mg inhalation solution 3 mL, Route: NEB, Drug Form: SOLN, Dosing Weight 109.091, kg, ONCE, STAT, Start date: 04/21/17 10:06:00 NIPPLE MAKER, Stop date: 04/21/17 10:06:00 NIPPLE MAKER Inactive 04/21/2017 [facility] Sodium Chloride 0.154 MEQ/ML Injectable Solution 1,000 mL, Rate: 25 ml/hr, Infuse over: 40 hr, Route: IV, Dosing Weight 104.176 kg, Total Volume: 1,000, Start date: 10/28/16 7:02:00 CDT, Duration: 30 day, Stop date: 11/27/16 7:01:00 CDT Inactive 2016 [facility] Singulair Daily, 0 Refill(s) Active 10/10/2016 [facility] Dicyclomine 20 mg, 0 Refill(s) Active 10/10/2016 [facility] omeprazole 40 mg oral delayed release capsule 40 mg=1 cap, PO, Daily, # 30 cap, 0 Refill(s) Active 10/10/2016 [facility] sertraline 50 mg oral tablet 50 mg=1 tab, PO, Daily, # 30 tab, 0 Refill(s) Active 10/10/2016 [facility] Phentermine Hydrochloride 37.5 MG Oral Tablet 37.5 mg=1 tab, PO, Daily, # 30 tab, 0 Refill(s) Active 10/10/2016 [facility] Acetaminophen 325 MG / Oxycodone Hydrochloride 10 MG Oral Tablet 2 tab, PO, Q6H, PRN for pain, 0 Refill(s) Active 10/10/2016 [facility] naloxone 1 mg/mL injectable solution IV, ONCE, 0 Refill(s) Active 10/10/2016 [facility] naloxegol 25 MG Oral Tablet [Movantik] 25 mg=1 tab, PO, QAM, 0 Refill(s) Active 10/10/2016 [facility] Furosemide 40 MG Oral Tablet 40 mg=1 tab, PO, Daily, # 30 tab, 0 Refill(s) Active 10/10/2016 [facility] baclofen 20 mg oral tablet 20 mg=1 tab, PO, TID, # 270 tab, 0 Refill(s) Active 10/10/2016 [facility] Oxycodone Hydrochloride 5 MG Oral Tablet 10 mg, Route: PO, Drug form: TAB, ONCE, Dosing Weight 90.909, kg, PRN as needed for pain, Start date: 04/15/14 13:32:00 Inactive 04/15/2014 [facility] Promethazine 6.25 mg, Route: IVPB, ONCE, Dosing Weight 90.909, kg, PRN Nausea & Vomiting, Start date: 04/15/14 12:55:00 Inactive 04/15/2014 [facility] Ondansetron 4 mg, Route: IVP, ONCE, Dosing Weight 90.909, kg, PRN Nausea & Vomiting, Start date: 04/15/14 12:55:00 Inactive 04/15/2014 [facility] Diphenhydramine 12.5 mg, Route: IVP, Drug form: INJ, Q6H, Dosing Weight 90.909, kg, PRN Itching, Start date: 04/15/14 12:55:00, Duration: 30 day, Stop date: 05/15/14 12:54:00 Inactive 04/15/2014 [facility] Naloxone 0.04 mg, Route: IVP, Q2MIN, Dosing Weight 90.909, kg, PRN Narcotic Reversal, Start date: 04/15/14 12:55:00, Duration: 8 doses or times, Stop date: Limited # of times Inactive 04/15/2014 [facility] Flumazenil 0.2 mg, Route: IVP, PRN, Dosing Weight 90.909, kg, PRN Benzodiazepine Reversal, Initial dose, Start date: 04/15/14 12:55:00, Duration: 30 day, Stop date: 05/15/14 11:54:00 Inactive 04/15/2014 [facility] Morphine 4 mg, Route: IVP, Q5Min, Dosing Weight 90.909, kg, PRN Pain Score 7-10, Start date: 04/15/14 12:55:00, Duration: 3 doses or times, Stop date: Limited # of times Inactive 04/15/2014 [facility] Meperidine 12.5 mg, Route: IVP, Q30Min, Dosing Weight 90.909, kg, PRN Other -See Comment, For shivering, Start date: 04/15/14 12:55:00, Duration: 2 doses or times, Stop date: Limited # of times Inactive 04/15/2014 [facility] Hydromorphone 0.5 mg, Route: IVP, Q5Min, Dosing Weight 90.909, kg, PRN Pain Score 7-10, Start date: 04/15/14 12:55:00, Duration: 4 doses or times, Stop date: Limited # of times Inactive 04/15/2014 [facility] Oxycodone Hydrochloride 1 MG/ML Oral Solution 5 mg, Route: NG, Drug form: LIQ, Q4H, Dosing Weight 90.909, kg, PRN Pain Score 4-6, Start date: 04/15/14 12:55:00, Duration: 30 day, Stop date: 05/15/14 12:54:00 Inactive 04/15/2014 [facility] Acetaminophen 1,000 mg, Route: IVPB, Drug form: INJ, ONCE, Dosing Weight 90.909, kg, PRN Pain Score 1-3, Start date: 04/15/14 12:55:00, Duration: 1 doses or times, Stop date: Limited # of times Inactive 04/15/2014 [facility] Oxycodone 5 mg, Route: PO, Drug form: TAB, Q4H, Dosing Weight 90.909, kg, PRN Pain Score 4-6, Start date: 04/15/14 12:55:00, Duration: 30 day, Stop date: 05/15/14 12:54:00 Inactive 04/15/2014 [facility] Fentanyl 25 microgram, Route: IVP, Q5Min, Dosing Weight 90.909, kg, PRN Pain Score 4-6, Start date: 04/15/14 12:55:00, Duration: 4 doses or times, Stop date: Limited # of times Inactive 04/15/2014 [facility] Calcium Chloride 0.0014 MEQ/ML / Potassium Chloride 0.004 MEQ/ML / Sodium Chloride 0.103 MEQ/ML / Sodium Lactate 0.028 MEQ/ML Injectable Solution 1,000 mL, Rate: 125 ml/hr, Infuse over: 8 hr, Route: IV, Dosing Weight 90.909 kg, Total Volume: 1,000, Start date: 04/15/14 12:55:00, Duration: 30 day, Stop date: 05/15/14 12:54:00 Inactive 04/15/2014 [facility] Clindamycin 600 mg, Route: IVPB, ONCE, Dosing Weight 90.909, kg, Start date: 04/15/14 10:42:00, Stop date: 04/15/14 10:42:00 Inactive 04/15/2014 [facility] Calcium Chloride 0.0014 MEQ/ML / Potassium Chloride 0.004 MEQ/ML / Sodium Chloride 0.103 MEQ/ML / Sodium Lactate 0.028 MEQ/ML Injectable Solution 1,000 mL, Rate: 25 ml/hr, Infuse over: 40 hr, Route: IV, Dosing Weight 90.909 kg, Total Volume: 1,000, Start date: 04/15/14 10:38:00, Duration: 30 day, Stop date: 05/15/14 10:37:00 Inactive 04/15/2014 [facility] gabapentin 300 MG Oral Capsule [Neurontin] 300 mg=1 cap, PO, TID, 0 Refill(s) Active 04/13/2014 [facility] Cyclobenzaprine hydrochloride 10 MG Oral Tablet [Flexeril] 10 mg=1 tab, PO, TID, 0 Refill(s) Active 04/13/2014 [facility] meloxicam 15 MG Oral Tablet [Mobic] 15 mg=1 tab, PO, Daily, 0 Refill(s) Active 04/13/2014 [facility] gabapentin 300 mg, PO, BID, 0 Refill(s) Active 04/13/2014 [facility] Ondansetron 4 MG Oral Tablet [Zofran] 4 mg=1 tab, PO, Q8H, as needed for nausea/vomiting, 0 Refill(s) Active 04/13/2014 [facility] Clonazepam 0.5 mg, PO, 0 Refill(s) Active 04/13/2014 [facility] Hydrochlorothiazide 12.5 mg, PO, 0 Refill(s) Active 04/13/2014 [facility] cetirizine hydrochloride 10 MG Oral Tablet [Zyrtec] 10 mg=1 tab, PO, Daily, 0 Refill(s) Active 04/13/2014 [facility] quetiapine 25 MG Oral Tablet [Seroquel] 25 mg=1 tab, PO, TID, 0 Refill(s) Active 04/13/2014 [facility] valsartan 160 MG Oral Tablet [Diovan] 160 mg=1 tab, PO, Daily, 0 Refill(s) Active 04/13/2014 [facility] sertraline 100 mg oral tablet 100 mg=1 tab, PO, Daily, 0 Refill(s) Active 04/13/2014 [facility] flumazenil 0.2 mg, 2 mL, Route: IVP, Drug form: INJ, PRN, Dosing Weight 90.909, kg, PRN Benzodiazepine Reversal, Initial dose, Start date: 07/21/12 8:30:00, Duration: 30 day, Stop date: 08/20/12 8:29:00 IVP No Longer Active [facility] 07/21/2012 [facility] naloxone 0.04 mg, 0.04 mL, Route: IVP, Drug form: INJ, Q2MIN, Dosing Weight 90.909, kg, PRN Narcotic Reversal, Start date: 07/21/12 8:30:00, Duration: 8 doses or times, Stop date: Limited # of times IVP No Longer Active [facility] 07/21/2012 [facility] diphenhydrAMINE 12.5 mg, 0.25 mL, Route: IVP, Drug form: INJ, PRN, Dosing Weight 90.909, kg, PRN Itching, Start date: 07/21/12 8:30:00, Duration: 30 day, Stop date: 08/20/12 8:29:00 IVP No Longer Active [facility] 07/21/2012 [facility] ondansetron 4 mg, 2 mL, Route: IVP, Drug form: INJ, ONCE, Dosing Weight 90.909, kg, PRN Nausea & Vomiting, Start date: 07/21/12 8:30:00 IVP No Longer Active [facility] 07/21/2012 [facility] dexamethasone 4 mg, 1 mL, Route: IVP, Drug form: INJ, ONCE, Dosing Weight 90.909, kg, PRN Nausea & Vomiting, Start date: 07/21/12 8:30:00 IVP No Longer Active [facility] 07/21/2012 [facility] labetalol 5 mg, 1 mL, Route: IVP, Drug form: INJ, Q5Min, Dosing Weight 90.909, kg, PRN Elevated BP, Start date: 07/21/12 8:30:00, Duration: 5 doses or times, Stop date: Limited # of times IVP No Longer Active [facility] 07/21/2012 [facility] niCARdipine 0.25 mg, 0.1 mL, Route: IVP, Drug form: INJ, Q5Min, Dosing Weight 90.909, kg, PRN Elevated BP, Start date: 07/21/12 8:30:00, Duration: 4 doses or times, Stop date: Limited # of times IVP No Longer Active [facility] 07/21/2012 [facility] metoprolol 1 mg, 1 mL, Route: IVP, Drug form: INJ, Q5Min, Dosing Weight 90.909, kg, PRN Elevated BP, Start date: 07/21/12 8:30:00, Duration: 5 doses or times, Stop date: Limited # of times IVP No Longer Active [facility] 07/21/2012 [facility] hydrALAZINE 5 mg, 0.25 mL, Route: IVP, Drug form: INJ, Q5Min, Dosing Weight 90.909, kg, PRN Elevated BP, Start date: 07/21/12 8:30:00, Duration: 4 doses or times, Stop date: Limited # of times IVP No Longer Active [facility] 07/21/2012 [facility] morphine Sulfate 2 mg, 1 mL, Route: IVP, Drug form: INJ, Q5Min, Dosing Weight 90.909, kg, PRN Pain Score 4-6, Start date: 07/21/12 8:30:00, Duration: 8 doses or times, Stop date: Limited # of times IVP No Longer Active [facility] 07/21/2012 [facility] meperidine 12.5 mg, 0.25 mL, Route: IVP, Drug form: INJ, Q30Min, Dosing Weight 90.909, kg, PRN Other -See Comment, For shivering, Start date: 07/21/12 8:30:00, Duration: 2 doses or times, Stop date: Limited # of times IVP No Longer Active [facility] 07/21/2012 [facility] hydromorphone 0.5 mg, 0.5 mL, Route: IVP, Drug form: SOLN, Q5Min, Dosing Weight 90.909, kg, PRN Pain Score 4-6, Start date: 07/21/12 8:30:00, Duration: 5 doses or times, Stop date: Limited # of times IVP No Longer Active [facility] 07/21/2012 [facility] fentanyl 25 microgram, 0.5 mL, Route: IVP, Drug form: INJ, Q5Min, Dosing Weight 90.909, kg, PRN Pain Score 4-6, Start date: 07/21/12 8:30:00, Duration: 4 doses or times, Stop date: Limited # of times IVP No Longer Active [facility] 07/21/2012 [facility] Lactated Ringers Injection IV 1,000 mL 1,000 mL, Rate: 25 ml/hr, Infuse over: 40 hr, Route: IV, kg, Total Volume: 1,000, Start date: 07/21/12 6:38:00, Duration: 30 day, Stop date: 08/20/12 6:37:00 IV No Longer Active [facility] 07/21/2012 [facility] morphine 15 mg oral capsule 15 mg, 1 cap, PO, BID, PRN, Pain, Substitution Allowed, CAP PO Active 07/20/2012 [facility] tizanidine 4 mg oral tablet 8 mg, 2 tab, PO, TID, 180 tab, Substitution Allowed, TAB PO Active 07/20/2012 [facility] flumazenil 0.2 mg, 2 mL, Route: IVP, Drug form: INJ, PRN, Dosing Weight 104.545, kg, PRN Benzodiazepine Reversal, Initial dose, Start date: 02/26/12 8:51:00, Duration: 5 doses or times, Stop date: Limited # of times IVP No Longer Active [facility] 02/26/2012 [facility] naloxone 0.04 mg, 0.1 mL, Route: IVP, Drug form: INJ, Q2MIN, Dosing Weight 104.545, kg, PRN Narcotic Reversal, Start date: 02/26/12 8:51:00, Duration: 8 doses or times, Stop date: Limited # of times IVP No Longer Active [facility] 02/26/2012 [facility] fentanyl 25 microgram, Route: IVP, Q5Min, Dosing Weight 104.545, kg, PRN Pain Score 4-6, Start date: 02/26/12 8:51:00, Duration: 4 doses or times, Stop date: Limited # of times IVP No Longer Active [facility] 02/26/2012 [facility] morphine Sulfate 2 mg, 1 mL, Route: IVP, Drug form: INJ, Q5Min, Dosing Weight 104.545, kg, PRN Pain Score 4-6, Start date: 02/26/12 8:51:00, Duration: 8 doses or times, Stop date: Limited # of times IVP No Longer Active [facility] 02/26/2012 [facility] hydromorphone 0.5 mg, 0.5 mL, Route: IVP, Drug form: SOLN, Q5Min, Dosing Weight 104.545, kg, PRN Pain Score 4-6, Start date: 02/26/12 8:51:00, Duration: 5 doses or times, Stop date: Limited # of times IVP No Longer Active [facility] 02/26/2012 [facility] acetaminophen-hydrocodone 325 mg-5 mg oral tablet 2 tab, Route: PO, Drug Form: TAB, Dosing Weight 104.545, kg, Q4H, PRN Pain Score 4-6, Start date: 02/26/12 8:51:00, Duration: 30 day, Stop date: 03/27/12 8:50:00 PO No Longer Active [facility] 02/26/2012 [facility] ondansetron 4 mg, Route: IVP, ONCE, Dosing Weight 104.545, kg, PRN Nausea & Vomiting, Start date: 02/26/12 8:51:00 IVP No Longer Active [facility] 02/26/2012 [facility] Lactated Ringers Injection IV 1,000 mL 1,000 mL, Rate: 25 ml/hr, Infuse over: 40 hr, Route: IV, kg, Total Volume: 1,000, Start date: 02/26/12 8:12:00, Duration: 30 day, Stop date: 03/27/12 8:11:00 IV No Longer Active [facility] 02/26/2012 [facility] flumazenil 0.2 mg, 2 mL, Route: IVP, Drug form: INJ, PRN, PRN Benzodiazepine Reversal, Initial dose, Start date: 01/13/12 8:37:00, Duration: 30 day, Stop date: 02/12/12 8:36:00 IVP No Longer Active [facility] 01/13/2012 [facility] acetaminophen-hydrocodone 325 mg-5 mg oral tablet 1 tab, Route: PO, Drug Form: TAB, Q4H, PRN Pain Score 1-3, Start date: 01/13/12 8:37:00, Duration: 30 day, Stop date: 02/12/12 8:36:00 PO No Longer Active [facility] 01/13/2012 [facility] ondansetron 4 mg, 2 mL, Route: IVP, Drug form: INJ, ONCE, PRN Nausea & Vomiting, Start date: 01/13/12 8:37:00 IVP No Longer Active [facility] 01/13/2012 [facility] naloxone 0.04 mg, 0.04 mL, Route: IVP, Drug form: INJ, Q2MIN, PRN Narcotic Reversal, Start date: 01/13/12 8:37:00, Duration: 8 doses or times, Stop date: Limited # of times IVP No Longer Active [facility] 01/13/2012 [facility] hydromorphone 0.5 mg, 0.25 mL, Route: IVP, Drug form: INJ, Q5Min, PRN Pain Score 4-6, Start date: 01/13/12 8:37:00, Duration: 5 doses or times, Stop date: Limited # of times IVP No Longer Active [facility] 01/13/2012 [facility] fentanyl 25 microgram, 0.5 mL, Route: IVP, Drug form: INJ, Q5Min, PRN Pain Score 4-6, Start date: 01/13/12 8:37:00, Duration: 4 doses or times, Stop date: Limited # of times IVP No Longer Active [facility] 01/13/2012 [facility] Lactated Ringers Injection IV 1,000 mL 1,000 mL, Rate: 25 ml/hr, Infuse over: 40 hr, Route: IV, Dosing Weight 104.545 kg, Total Volume: 1,000, Start date: 01/13/12 6:53:00, Duration: 30 day, Stop date: 02/12/12 6:52:00 IV No Longer Active [facility] 01/13/2012 [facility] multivitamin with minerals Multiple Vitamins with Zinc oral capsule 1 cap, PO, Daily, 60 cap, Substitution Allowed, Soft Stop, CAP PO Active 01/07/2012 [facility] Premarin 0.625 mg oral tablet 0.625 mg, 1 tab, PO, Daily, 30 tab, Substitution Allowed, TAB PO Active 01/07/2012 [facility] meloxicam 15 mg oral tablet 15 mg, 1 tab, PO, Daily, 90 tab, Substitution Allowed, TAB PO Active 01/07/2012 [facility] Epitol 200 mg oral tablet 400 mg, 2 tab, PO, BID, 120 tab, Substitution Allowed, TAB PO Active 01/07/2012 [facility] Xopenex HFA 45 mcg/inh inhalation aerosol with adapter 2 puff, INHALATION, Q4H, PRN, as needed for wheezing, Substitution Allowed, Soft Stop INHALATION Active 01/07/2012 [facility] Benadryl 25 mg, Route: IVP, ONCE, PRN Itching, Start date: 06/26/11 11:02:00 IVP No Longer Active [facility] 06/26/2011 [facility] Ventolin HFA INHALATION, Substitution Allowed, Maintenance INHALATION Active 06/26/2011 [facility] lidocaine 1% 0.5 mL, Route: SUB-Q, Drug Form: INJ, ONCALL, Start date: 06/25/11 15:00:00, Duration: 1 doses or times SUB-Q No Longer Active [facility] 06/25/2011 [facility] Lactated Ringers Injection IV 1,000 mL 1,000 mL, Rate: 25 ml/hr, Infuse over: 40 hr, Route: IV, Total Volume: 1,000, Start date: 06/25/11 14:44:00, Duration: 30 day, Stop date: 07/25/11 14:43:00 IV No Longer Active [facility] 06/25/2011 [facility] ondansetron 4 mg, 2 mL, Route: IVP, Drug form: INJ, ONCE, PRN Nausea & Vomiting, Start date: 04/10/11 8:37:00 IVP No Longer Active [facility] 04/10/2011 [facility] flumazenil 0.2 mg, 2 mL, Route: IVP, Drug form: INJ, PRN, PRN Other -See Comment, Initial dose, Start date: 04/10/11 8:37:00, Duration: 30 day, Stop date: 05/10/11 7:36:00 IVP No Longer Active [facility] 04/10/2011 [facility] naloxone 0.04 mg, 0.1 mL, Route: IVP, Drug form: INJ, Q2MIN, PRN Narcotic Reversal, Start date: 04/10/11 8:37:00, Duration: 8 doses or times, Stop date: Limited # of times IVP No Longer Active [facility] 04/10/2011 [facility] meperidine 12.5 mg, 0.25 mL, Route: IVP, Drug form: INJ, Q30Min, PRN Other -See Comment, For shivering, Start date: 04/10/11 8:37:00, Duration: 2 doses or times, Stop date: Limited # of times IVP No Longer Active [facility] 04/10/2011 [facility] hydromorphone 0.5 mg, 0.5 mL, Route: IVP, Drug form: SOLN, Q5Min, PRN Pain Score 4-6, Start date: 04/10/11 8:37:00, Duration: 5 doses or times, Stop date: Limited # of times IVP No Longer Active [facility] 04/10/2011 [facility] fentanyl 25 microgram, 0.5 mL, Route: IVP, Drug form: INJ, Q5Min, PRN Pain Score 4-6, Start date: 04/10/11 8:37:00, Duration: 4 doses or times, Stop date: Limited # of times IVP No Longer Active [facility] 04/10/2011 [facility] acetaminophen-hydrocodone 325 mg-5 mg oral tablet 2 tab, Route: PO, Drug Form: TAB, Q4H, PRN Pain Score 4-6, Start date: 04/10/11 8:37:00, Duration: 30 day, Stop date: 05/10/11 8:36:00 PO No Longer Active [facility] 04/10/2011 [facility] lidocaine 1% 0.5 mL, Route: SUB-Q, Drug Form: INJ, ONCALL, Start date: 04/10/11 8:00:00, Duration: 1 doses or times SUB-Q No Longer Active [facility] 04/10/2011 [facility] Lactated Ringers Injection IV 1,000 mL 1,000 mL, Rate: 25 ml/hr, Infuse over: 40 hr, Route: IV, Total Volume: 1,000, Start date: 04/10/11 7:33:00, Duration: 30 day, Stop date: 05/10/11 7:32:00 IV No Longer Active [facility] 04/10/2011 [facility] clindamycin 150 mg oral capsule 1 cap, PO, Q6H, 40 cap, Substitution Allowed, CAP PO Active 04/09/2011 [facility] Erythrocin Stearate Filmtab 250 mg oral tablet 1 tab, PO, Q8H, 40 tab, Substitution Allowed, TAB PO Active 04/09/2011 [facility] Nexium 40 mg oral delayed release capsule 1 cap, PO, Daily, 30 cap, Substitution Allowed PO Active 04/09/2011 [facility] [place] 10/325 oral tablet 1 tab, PO, BID, PRN, 24 tab, for pain, Substitution Allowed, Maintenance PO Active 04/09/2011 [facility] Allergies, Adverse Reactions, Alerts Substance Category Reaction Severity Reaction type Status Date Reported Comments Source aspirin Assertion Drug allergy Active [facility] Bactrim Assertion Drug allergy Active [facility] Latex Assertion Blisters Drug allergy Active [facility] lovastatin Assertion Drug allergy Active [facility] methadone Assertion Drug allergy Active [facility] penicillin Assertion Drug allergy Active [facility] sulfa drugs Assertion Drug allergy Active [facility] Immunizations Immunization Date Given Site Status Last Updated Comments Source Results Order Name Results Value Reference Range Date Interpretation Comments Source Spine lumbar wo contrast CT Spine lumbar wo contrast CT Patient Name: CHAPINCITO ALVAREZ : 1970; Age: 47 years Female MR: [id number] Study: Spine lumbar wo contrast CT 03/30/2018 11:29 AM CDT Clinical Indication: - M54.16 Radiculopathy, lumbar region worsening symptoms with weather changes. COMPARISON: Lumbar spine radiograph 06/25/2016 TECHNIQUE: Sequential trans-axial images were obtained with a multi-detector helical CT. Coronal and sagittal reconstructions were obtained. CT imaging performed at this location utilizes radiation dose optimization techniques which include one or more of the following: -Automated exposure control -Adjustment of the mA and/or kV according to patient size -Use of iterative reconstruction technique CT Radiation Dose DLP 466 mGy-cm FINDINGS: ALIGNMENT AND GENERAL ASSESSMENT: Anterior and interbody lumbar fusion spans the L4-L5 and L5-S1 levels. There is complete bony fusion spanning the L4-L5 and L5-S1 disc space. Alignment of lumbar spine is within normal limits. Mild to moderate degenerative changes of both sacroiliac joints are partially demonstrated. Partially demonstrated leads enter the spinal canal at the T12 level posteriorly. These are present within the posterior aspect of the spinal canal. Limited evaluation of the paraspinous soft tissues is unremarkable. DISC SPACES AND SOFT TISSUES: MRI has higher sensitivity and specificity for disc and soft tissue disease. T12-L1: The disc is normal. There is no central stenosis. There is no foraminal stenosis. The facet joints appear normal. L1-L2: The disc is normal. There is no central stenosis. There is no foraminal stenosis. The facet joints appear normal. L2-L3: No significant disc bulge protrusion evident. No spinal canal stenosis evident. There is no foraminal stenosis. The facet joints appear normal. L3-L4: Mild posterior disc bulge. Mild facet arthropathy. No foraminal narrowing evident. Evaluation limited due to lack intrathecal contrast. No significant spinal canal stenosis evident. L4-L5: Anterior fusion. Spinal canal is broad in the setting of posterior decompression. No foraminal narrowing. Postsurgical bone fusion of the posterior elements. L5-S1: Anterior interbody fusion. Posterior decompression. Spinal canal is broad. No foraminal narrowing demonstrated. If there is further concern, CT myelogram or MRI of the lumbar spine may be performed for complete assessment. IMPRESSION: 1. Intact anterior interbody lumbar fusion at the L4-L5 and L5-S1 levels. No significant junctional degenerative changes evident. 2. No foraminal narrowing demonstrated. SL: HANY 03/30/2018 - - Read by: Srini Abad MD Dictated Date/time: 03/30/18 13:12 Electronically Signed by: Srini Abad MD 03/30/18 13:24 FINAL REPORT [facility] Breast Complete Jorge US Breast Complete Jorge US COMPLETE ULTRASOUND OF BOTH BREASTS AND AXILLA: 02/19/2018 CLINICAL: /Nodule. COMPARISON:Comparison is made to exams dated: 02/19/2018 mammogram, 02/09/2018 mammogram, 10/21/2016 ultrasound, 07/31/2015 ultrasound, and 10/20/2014 ultrasound - [facility]. TECHNIQUE: Color flow and real-time ultrasound of both breasts four quadrants, retroareolar, and axilla regions were performed. Mobley scale images of the real- time examination were reviewed. FINDINGS: There is a stable benign 9 mm wider than tall oval nodule with a circumscribed margin in the right breast at 10 o'clock in the retroareolar region. This oval nodule is hypoechoic. No abnormalities were seen sonographically in the left breast or either axilla. IMPRESSION: BENIGN RECOMMENDATION:There is no sonographic evidence of malignancy. The stable 9 mm wider than tall oval nodule in the right breast is consistent with a fibroadenoma and is benign. A 1 year screening mammogram is recommended.(02/20/2019) This exam was interpreted at [id number] for [facility]. Paula Felipe M.D. ap/penrad:02/19/2018 14:16:26 News Agent(s): Georgia Cassidy [facility] letter sent: BI-RADS 1/2 Ultrasound BI-RADS: 2 Benign 02/19/2018 - - Read by: Paula Felipe MD Dictated Date/time: 02/19/18 14:16 Electronically Signed by: Paula Felipe MD 02/19/18 14:16 FINAL REPORT [facility] Breast Mammo Diag UNI incl CAD ID Breast Mammo Diag UNI incl CAD MA UNILATERAL RIGHT DIGITAL DIAGNOSTIC MAMMOGRAM WITH CAD: 02/19/2018 CLINICAL: /Callback. Current study was evaluated with a Computer Aided Detection (CAD) system. COMPARISON:Comparison is made to exams dated: 02/09/2018 mammogram, 10/21/2016 mammogram, 10/20/2014 mammogram, 12/30/2013 mammogram - [facility], and 11/04/2012 mammogram - [facility]. TECHNIQUE: Mammographic views were obtained using digital acquisition. [employer] Version 1.3 was utilized for computer aided detection. FINDINGS: The tissue of right breast is heterogeneously dense, which could obscure detection of small masses. There are benign calcifications in the right breast. There is a nodule in the right breast at 10 o'clock anterior depth. This is seen in additional views. No other significant masses or calcifications are seen in the breast. IMPRESSION: INCOMPLETE: NEEDS ADDITIONAL IMAGING EVALUATION RECOMMENDATION:The nodule in the right breast is indeterminate. An ultrasound is recommended. This exam was interpreted at [id number] for [facility]. SUMMARY: Ultrasound will be performed at this time; please see dedicated separate report. Paula Felipe M.D. ap/penrad:02/19/2018 12:10:40 News Agent(s): Aisha Beverly [facility] Mammogram BI-RADS: 0 Indeterminate 02/19/2018 - - Read by: Paula Felipe MD Dictated Date/time: 02/19/18 12:10 Electronically Signed by: Paula Felipe MD 02/19/18 12:10 FINAL REPORT [facility] Breast Mammo Scrn JORGE w arvind incl CAD MA Breast Mammo Scrn JORGE w arvind incl CAD MA BILATERAL DIGITAL SCREENING MAMMOGRAM 3D/2D WITH CAD: 02/09/2018 CLINICAL: /Routine. Current study was evaluated with a Computer Aided Detection (CAD) system. COMPARISON:Comparison is made to exams dated: 10/21/2016 mammogram, 10/20/2014 mammogram, 12/30/2013 mammogram - [facility], 11/04/2012 mammogram - [facility], and 03/23/2009 mammogram - [facility]. TECHNIQUE: Digital Breast Tomosynthesis was performed and utilized for Interpretation. [employer] Version 1.3 was utilized for computer aided detection. FINDINGS: The tissue of both breasts is heterogeneously dense, which could obscure detection of small masses. There are benign calcifications in the right breast. There is a possible mass in the right breast at 10 o'clock anterior depth. No other significant masses, calcifications, or other findings are seen in either breast. IMPRESSION: INCOMPLETE: NEEDS ADDITIONAL IMAGING EVALUATION RECOMMENDATION:The possible mass in the right breast is indeterminate. Right diagnostic mammogram with possible ultrasound is recommended (spot compression and lateral views). This exam was interpreted at [id number] for [facility]. Heather tabares/penrad:02/10/2018 08:47:34 News Agent(s): Sissy Leonardo [facility] letter sent: BI-RADS 0 Mammogram BI-RADS: 0 Indeterminate 02/09/2018 - - Read by: Heather Cardoso MD Dictated Date/time: 02/10/18 08:47 Electronically Signed by: Heather Cardoso MD 02/10/18 08:47 FINAL REPORT [facility] CARDIAC ENZYMES CK MB null 0.5 - 3.6 04/21/2017 [facility] CARDIAC ENZYMES Troponin-I null 0.00 - 0.40 04/21/2017 [facility] CARDIAC ENZYMES CK MB Index null 0.0 - 2.5 04/21/2017 [facility] CARDIAC ENZYMES Total CK 57 unit/L 12 - 191 04/21/2017 [facility] CHEM PANEL eGFR 92 mL/min/1.73m2 04/21/2017 Result Comment: The eGFR is calculated using the [...] from the National Kidney Disease Education Program (NKDEP) which additionally recommends that when the eGFR is used in patients with extremes of body mass index for purposes of drug dosing, the eGFR should be multiplied by the estimated BMI. [facility] CHEM PANEL Glucose Lvl 99 mg/dL 70 - 99 04/21/2017 [facility] CHEM PANEL BUN 13 mg/dL 7 - 22 04/21/2017 [facility] CHEM PANEL Creatinine Lvl 0.78 mg/dL 0.50 - 1.40 04/21/2017 [facility] CHEM PANEL Albumin Lvl 3.8 g/dL 3.5 - 5.0 04/21/2017 [facility] CHEM PANEL Total Protein 8.2 g/dL 6.4 - 8.4 04/21/2017 [facility] CHEM PANEL Potassium Lvl 3.8 meq/L 3.5 - 5.1 04/21/2017 [facility] CHEM PANEL ALT 21 unit/L 0 - 65 04/21/2017 [facility] CHEM PANEL Sodium Lvl 133 meq/L 135 - 145 04/21/2017 [facility] CHEM PANEL Chloride Lvl 94 meq/L 95 - 109 04/21/2017 [facility] CHEM PANEL CO2 31 meq/L 24 - 32 04/21/2017 [facility] CHEM PANEL Calcium Lvl 9.2 mg/dL 8.5 - 10.5 04/21/2017 [facility] CHEM PANEL AST 19 unit/L 0 - 37 04/21/2017 [facility] CHEM PANEL Alk Phos 158 unit/L 39 - 136 04/21/2017 [facility] CHEM PANEL Bili Total 0.7 mg/dL 0.2 - 1.3 04/21/2017 [facility] CHEM PANEL Globulin 4.4 g/dL 2.7 - 4.2 04/21/2017 [facility] CHEM PANEL A/G Ratio 0.9 0.7 - 1.6 04/21/2017 [facility] CHEM PANEL B/C Ratio 17 6 - 25 04/21/2017 [facility] CHEM PANEL AGAP 11.8 meq/L 10.0 - 20.0 04/21/2017 [facility] ENDOCRINOLOGY hCG Tot null 04/21/2017 [facility] HEMATOLOGY Monocytes # 0.7 K/CMM 0.0 - 0.8 04/21/2017 [facility] Eosinophils # 0.2 K/CMM 0.0 - 0.5 04/21/2017 [facility] Segs-Bands # 7.4 K/CMM 1.5 - 8.1 04/21/2017 [facility] Lymphocytes # 1.1 K/CMM 1.0 - 5.5 04/21/2017 [facility] Basophils 0.5 % 0.0 - 1.0 04/21/2017 [facility] Eosinophils 1.8 % 0.0 - 4.0 04/21/2017 [facility] Monocytes 7.5 % 2.0 - 12.0 04/21/2017 [facility] Segs 79.0 % 45.0 - 75.0 04/21/2017 [facility] Lymphocytes 11.2 % 20.0 - 40.0 04/21/2017 [facility] MPV 8.7 fL 7.4 - 10.4 04/21/2017 [facility] Platelet 374 K/CMM 133 - 450 04/21/2017 [facility] MCHC 33.5 g/dL 32.0 - 36.0 04/21/2017 [facility] Hct 36.5 % 36.0 - 48.0 04/21/2017 [facility] MCH 29.1 pg 27.0 - 31.0 04/21/2017 [facility] MCV 87.0 fL 80.0 - 98.0 04/21/2017 [facility] Hgb 12.2 g/dL 12.0 - 16.0 04/21/2017 [facility] RDW 14.1 % 11.5 - 14.5 04/21/2017 [facility] RBC 4.20 M/CMM 4.20 - 5.40 04/21/2017 [facility] WBC 9.4 K/CMM 3.7 - 10.4 04/21/2017 [facility] Chest 1view DX Chest 1view DX Clinical Indication: - chest pain; Comparison: None FINDINGS: AP chest radiographs shows normal lung volumes without interstitial or airspace opacities, pleural effusions or pneumothorax. The heart size and pulmonary vasculature are normal. The trachea is midline. There are no clinically significant osseous abnormalities noted. IMPRESSION: No chest radiographic evidence of acute cardiopulmonary disease. SL: [id number] 04/21/2017 - - Read by: Clifton Ramos MD Dictated Date/time: 04/21/17 10:20 Electronically Signed by: Clifton Ramos MD 04/21/17 10:20 FINAL REPORT [facility] Breast Complete Uni US Breast Complete Uni US - BREAST COMPLETE UNI US/R ULTRASOUND OF RIGHT BREAST AND RIGHT AXILLA: 10/21/2016 CLINICAL: Right breast probably benign Mass. Comparison is made to exams dated: 10/21/2016 mammogram, 07/31/2015 ultrasound, 10/20/2014 ultrasound, 12/30/2013 ultrasound, 10/20/2014 mammogram and 12/30/2013 mammogram - [facility]. Color flow and real-time ultrasound of the right breast and axilla were performed. Mobley scale images of the real-time examination were reviewed. All 4 quadrants, the retroareolar region and axilla are evaluated in this exam. There is a stable benign 9 mm wider than tall oval mass with a circumscribed margin in the right breast at 10 o'clock middle depth 1 cm from the nipple. This oval mass is hypoechoic with posterior acoustic enhancement. This correlates with ultrasound findings but was not seen on the prior mammogram. Color flow imaging demonstrates that there is no vascularity present. No abnormalities were seen sonographically in the right axilla. There has been no significant interval change. IMPRESSION: BENIGN There is no sonographic evidence of malignancy. The stable 9 mm wider than tall oval mass in the right breast likely represents a fibroadenoma and is benign. This has shown over 2 years of stability. A 1 year screening mammogram is recommended. The results were reviewed with the patient. Heather meekst/:10/21/2016 11:22:36 News Agent: Georgia Cassidy, [facility] This exam was dictated and interpreted by [id number] for [facility] [place]. letter sent: Normal exam Ultrasound BI-RADS: 2 Benign 10/21/2016 - - Read by: Heather Cardoso MD Dictated Date/time: 10/21/16 11:22 Electronically Signed by: Heather Cardoso MD 10/21/16 11:22 FINAL REPORT [facility] Breast Mammo Diag JORGE incl CAD MA Breast Mammo Diag JORGE incl CAD MA - BREAST MAMMO DIAG JORGE INCL CAD MA BILATERAL DIGITAL DIAGNOSTIC MAMMOGRAM WITH CAD: 10/21/2016 CLINICAL: Probably benign right breast mass follow up. Current study was evaluated with a Computer Aided Detection (CAD) system. Comparison is made to exams dated: 10/20/2014 mammogram, 12/30/2013 mammogram - [facility], 11/04/2012 mammogram - [facility], 03/23/2009 mammogram - [facility], 07/31/2015 ultrasound and 10/20/2014 ultrasound - [facility]. The tissue of both breasts is heterogeneously dense, which could obscure detection of small masses. There are benign calcifications in the right breast. No significant masses, calcifications, or other findings are seen in either breast. There has been no significant interval change. IMPRESSION: INCOMPLETE: NEEDS ADDITIONAL IMAGING EVALUATION There is no mammographic abnormality seen in the right breast to correspond with the ultrasound finding at 10 o'clock, however ultrasound is recommended. The results were reviewed with the patient. SUMMARY: Ultrasound will be performed at this time; please see dedicated separate report. Ultrasound will also reevaluate prior probably benign findings. Heather tabares/ja:10/21/2016 11:20:24 News Agent: Aisha Beverly, [facility] This exam was dictated and interpreted by [id number] for [facility]. Mammogram BI-RADS: 0 Indeterminate 10/21/2016 - - Read by: Heather Cardoso MD Dictated Date/time: 10/21/16 11:20 Electronically Signed by: Heather Cardoso MD 10/21/16 11:20 FINAL REPORT [facility] ELECTROLYTES Sodium Lvl 139 meq/L 135 - 145 10/10/2016 [facility] ELECTROLYTES Chloride Lvl 102 meq/L 95 - 109 10/10/2016 [facility] ELECTROLYTES CO2 26 meq/L 24 - 32 10/10/2016 [facility] ELECTROLYTES Potassium Lvl 3.5 meq/L 3.5 - 5.1 10/10/2016 [facility] ELECTROLYTES AGAP 14.5 meq/L 10.0 - 20.0 10/10/2016 [facility] Spine lumbar series DX Spine lumbar series DX Patient Name: CHAPINCITO ALVAREZ : 1970; Age: 45 years Female MR: [id number] Study: Spine lumbar series DX 06/25/2016 11:37 AM NIPPLE MAKER CLINICAL INDICATION: M54.16 Radiculopathy, lumbar region, evaluate for SCS implant/battery placement COMPARISON: Lumbar spine radiograph on 05/25/2014 FINDINGS: Status post fusion of L4-L5 and L5-S1. The anterior metallic screw within the L4 vertebral body appears in unchanged position without evidence of surrounding lucency. Several surgical clips noted anterior to the lumbar vertebral bodies. No compression fracture. No subluxation. Stable facet arthropathy of the lower lumbar spine. Stable position of the spinal stimulator device. IMPRESSION: Status post fusion of L4-L5 and L5-S1. No significant change since the previous lumbar spine radiographs on 05/25/2014. : [id number] 06/25/2016 - - Read by: Toy Cisneros MD Dictated Date/time: 06/25/16 14:14 Electronically Signed by: Toy Cisneros MD 06/25/16 14:17 FINAL REPORT [facility] Pelvis AP DX Pelvis AP DX Patient Name: CHAPINCITO ALVAREZ : 1970; Age: 45 years Female MR: [id number] Study: Pelvis AP DX 06/25/2016 11:36 AM NIPPLE MAKER CLINICAL INDICATION: M54.16 Radiculopathy, lumbar region, evaluate for SCS implant/battery placement COMPARISON: None FINDINGS: Views and laterality: AP pelvis No displaced fracture or dislocation. Mild degenerative changes of the bilateral hips and bilateral sacroiliac joints. Moderate amount of stool within the colon. Spinal stimulator device noted. IMPRESSION: No acute bony abnormalities. SL: [id number] 06/25/2016 - - Read by: Toy Cisneros MD Dictated Date/time: 06/25/16 14:13 Electronically Signed by: Toy Cisneros MD 06/25/16 14:14 FINAL REPORT [facility] Abdomen/Pelvis w IV contrast CT Abdomen/Pelvis w IV contrast CT EXAM: CT ABDOMEN AND PELVIS WITH CONTRAST DATE:05/31/2016 12:28 PM NIPPLE MAKER . ADDITIONAL DATA: None COMPARISON: None Dose: DLP 1495 mGy-cm TECHNIQUE: CT of the abdomen and pelvis with intravenous contrast. Multiplanar reformats. IV CONTRAST: 100 cc Omnipaque 300 GI CONTRAST: Oral FINDINGS: Lung bases: Clear Liver: Within normal limits. Spleen: Within normal limits. Adrenal glands: Within normal limits. Gallbladder/biliary: Cholecystectomy. Mild, physiologic prominence of the common bile duct. No intrahepatic biliary dilatation. Kidneys: 9 mm right renal cortical hypodensity. Otherwise unremarkable. Normal excretion on delayed images. Pancreas: Within normal limits GI tract: Constipation pattern in the colon. The appendix is not identified similar however, there are no right lower quadrant or pericecal inflammatory changes. Small bowel, stomach, and GE junction are unremarkable. Lymph nodes: Within normal limits. Urinary bladder: Within normal limits. Reproductive structures: Hysterectomy. Unremarkable ovaries. Regional skeleton: Lower lumbar postoperative changes. Spinal stimulation device. IMPRESSION: No acute abnormality in the abdomen or pelvis. No clearly identified exhalation for patient's clinical symptoms. 05/31/2016 - - Read by: Clifford Benavides MD Dictated Date/time: 05/31/16 16:04 Electronically Signed by: Clifford Benavides MD 05/31/16 16:08 FINAL REPORT [facility] Breast Complete Jorge US Breast Complete Jorge US - BREAST COMPLETE JORGE US ULTRASOUND OF BOTH BREASTS AND BOTH AXILLA: 07/31/2015 CLINICAL: Probably benign finding - follow up right breast mass. Comparison is made to exams dated: 10/20/2014 ultrasound, 10/20/2014 mammogram, 12/30/2013 ultrasound, 12/30/2013 mammogram - [facility] and 11/04/2012 mammogram - [facility]. Color flow and real-time ultrasound of both breasts and both axilla were performed. Mobley scale images of the real-time examination were reviewed. For both breasts, all 4 quadrants, the retroareolar region and axilla are evaluated in this exam. There is a stable 9 mm wider than tall oval mass with a circumscribed margin in the right breast at 10 o'clock middle depth 1 cm from the nipple. This oval mass is hypoechoic with posterior acoustic enhancement. This correlates with ultrasound findings but was not seen on the prior mammogram. Color flow imaging demonstrates that there is no vascularity present. No abnormalities were seen sonographically in the left breast or either axilla. IMPRESSION: PROBABLY BENIGN - FOLLOW-UP RECOMMENDED The stable 9 mm wider than tall oval mass in the right breast likely represents a fibroadenoma and is probably benign. This has shown over 1 year of stability. A follow-up right ultrasound in 12 months is recommended. The results were reviewed with the patient. Patient will be due for her bilateral diagnostic mammogram in October 2015. Heather tabares/:07/31/2015 13:38:50 News Agent: Georgia Cassidy, [facility] This exam was dictated and interpreted by [id number] for [facility] [place]. letter sent: Followup Ultrasound BI-RADS: 3 Probably benign 07/31/2015 - - Read by: Heather Cardoso MD Dictated Date/time: 07/31/15 13:38 Electronically Signed by: Heather Cardoso MD 07/31/15 13:38 FINAL REPORT [facility] Breast Complete Jorge US Breast Complete Jorge US - BREAST COMPLETE JORGE US ULTRASOUND OF BOTH BREASTS AND BOTH AXILLA: 10/20/2014 CLINICAL: Pain. Comparison is made to exams dated: 10/20/2014 mammogram, 12/30/2013 ultrasound, 12/30/2013 mammogram - [facility], 11/04/2012 mammogram - [facility] and 03/23/2009 mammogram - [facility]. Color flow and real-time ultrasound of both breasts and both axilla were performed. Mobley scale images of the real-time examination were reviewed. For both breasts, all 4 quadrants, the retroareolar region and axilla are evaluated in this exam. There is a benign appearing oval shaped septated cyst with a circumscribed margin with posterior enhancement right breast at 10 o'clock that is an incidental finding. There is a stable 9 mm wider than tall oval mass with a circumscribed margin in the right breast at 10 o'clock middle depth 1 cm from the nipple. This oval mass is hypoechoic with posterior acoustic enhancement. This correlates with ultrasound findings but was not seen on the prior mammogram. Color flow imaging demonstrates that there is no vascularity present. No abnormalities were seen sonographically in the left breast or either axilla. There has been no significant interval change. IMPRESSION: PROBABLY BENIGN - FOLLOW-UP RECOMMENDED The stable 9 mm wider than tall oval mass in the right breast likely represents a fibroadenoma and is probably benign. A follow-up in 6 months is recommended. There is no mammographic or sonographic abnormality seen in either breast to correspond with the pain which likely represents hormonal stimulation and normal fibroglandular tissue. A follow-up right ultrasound in 6 months is recommended to demonstrate stability. Heather tabares/:10/20/2014 14:04:51 News Agent: Georgia Cassidy, [facility] This exam was dictated and interpreted by [id number] for [facility]. letter sent: Followup Ultrasound BI-RADS: 3 Probably benign 10/20/2014 - - Read by: Heather Cardoso MD Dictated Date/time: 10/20/14 14:04 Electronically Signed by: Heather Cardoso MD 10/20/14 14:04 FINAL REPORT [facility] Digital Mammo DX Jorge MA Digital Mammo DX Jorge MA - DIGITAL MAMMO DX JORGE MA BILATERAL DIGITAL DIAGNOSTIC MAMMOGRAM WITH CAD: 10/20/2014 CLINICAL: Pain. Current study was evaluated with a Computer Aided Detection (CAD) system. Comparison is made to exams dated: 12/30/2013 mammogram - [facility], 11/04/2012 mammogram - [facility], 03/23/2009 mammogram - [facility] and 12/30/2013 ultrasound - [facility]. The tissue of both breasts is heterogeneously dense, which could obscure detection of small masses. No significant masses, calcifications, or other findings are seen in either breast. There has been no significant interval change. IMPRESSION: INCOMPLETE: NEEDS ADDITIONAL IMAGING EVALUATION There is no mammographic abnormality seen in either breast to correspond with the pain which likely represents hormonal stimulation and normal fibroglandular tissue, however ultrasound is recommended. SUMMARY: Ultrasound will be performed at this time; please see dedicated separate report. Ultrasound will also reevaluate prior probably benign findings. Heather meekst/penrad:10/20/2014 14:02:01 News Agent: Vivienne Linda, [facility] This exam was dictated and interpreted by [id number] for [facility]. Mammogram BI-RADS: 0 Indeterminate 10/20/2014 - - Read by: Heather Cardoso MD Dictated Date/time: 10/20/14 14:02 Electronically Signed by: Heather Cardoso MD 10/20/14 14:02 FINAL REPORT [facility] Spine thoracic 3 views DX Spine thoracic 3 views DX Thoracic spine, 3 view: Exam reason: See Clinic [id number] Thoracic or Lumbosacral Neuritis or Radiculitis, Unspecified AP, lateral and swimmer's view were obtained. Mild thoracic spondylosis is noted. There is minimal thoracic curvature convex to the left at the lower thoracic spine. Thoracic vertebral body heights are well-maintained. No acute fracture is noted. The spinal stimulator leads are noted at the lower thoracic spinal canal dorsally with the lead tips present at the T9 and T9-T10 levels, respectively. SL:16 05/25/2014 - - Read by: Mian Espraza MD Dictated Date/time: 05/25/14 16:35 Electronically Signed by: Mian Esparza MD 05/25/14 16:37 FINAL REPORT [facility] Spine lumbar series DX Spine lumbar series DX Lumbar spine five view: Exam reason: See Clinic Indication 724.4 Thoracic or Lumbosacral Neuritis or Radiculitis, Unspecified Fusion at L4-L5 and L5-S1 is noted. A ventral retention screw is noted at the ventral inferior L4 vertebral body. Numerous vascular clips are noted about the lumbosacral junction. A retention screw at L5-S1 as well as pedicular and eliezer fixation noted on the previous exam, 07/24/2006 have been removed. Since that exam, there has been placement of a generator at the dorsal right paramedian soft tissues with 2 leads entering the dorsal aspect of the spinal canal at the level of T11-T12. The tips of the spinal stimulation leads are present at the level of T9-T10. Vertebral body heights and interspaces are otherwise well maintained. No spondylolysis or spondylolisthesis is noted. No acute fracture or dislocation is noted. Surgical clips are noted at the right upper quadrant status post cholecystectomy. Ventral marginal spurring is noted at the visualized lower thoracic an upper 3 lumbar vertebral bodies. SL:16 05/25/2014 - - Read by: Mian Esparza MD Dictated Date/time: 05/25/14 16:29 Electronically Signed by: Mian Esparza MD 05/25/14 16:35 FINAL REPORT [facility] ELECTROLYTES Sodium Lvl 140 meq/L 135 - 145 04/13/2014 [facility] ELECTROLYTES Potassium Lvl 3.5 meq/L 3.5 - 5.1 04/13/2014 [facility] ELECTROLYTES CO2 28 meq/L 24 - 32 04/13/2014 [facility] ELECTROLYTES Chloride Lvl 102 meq/L 95 - 109 04/13/2014 [facility] ELECTROLYTES AGAP 13.5 meq/L 10.0 - 20.0 04/13/2014 [facility] Bone Density-Dual Energy Absorptionmetry Bone Density-Dual Energy Absorptionmetry - Bone Density-Dual Energy Absorptionmetry BONE DENSITY EVALUATION: 11/04/2012 CLINICAL DATA: Post menopausal. FINDINGS: Bone density evaluation was performed 11/04/2012 on the AP L1-L4 region of spine using Lunar Dual Energy X-Ray Absorptiometry. The BMD average for the exam is 1.209 g/cm2. The T-score is 0.20 and the Z-score is -0.90. These values indicate 92.0% for age-matched controls. This matches the World Health Organization's criteria for normal bone density and places the patient within normal limits of fracture risk. An additional bone density evaluation was performed 11/04/2012 on the right femur neck using Lunar Dual Energy X-Ray Absorptiometry. The BMD average for the exam is 1.250 g/cm2. The T-score is 2.20 and the Z-score is 1.60. These values indicate 119.0% for age-matched controls. This matches the World Health Organization's criteria for normal bone density and places the patient within normal limits of fracture risk. An additional bone density evaluation was performed 11/04/2012 on the right total femur area using Lunar Dual Energy X-Ray Absorptiometry. The BMD average for the exam is 1.328 g/cm2. The T-score is 2.70 and the Z-score is 2.00. These values indicate 122.0% for age-matched controls. This matches the World Health Organization's criteria for normal bone density and places the patient within normal limits of fracture risk. An additional bone density evaluation was performed 11/04/2012 on the left femur neck using Lunar Dual Energy X-Ray Absorptiometry. The BMD average for the exam is 1.118 g/cm2. The T-score is 1.10 and the Z-score is 0.50. These values indicate 106.0% for age-matched controls. This matches the World Health Organization's criteria for normal bone density and places the patient within normal limits of fracture risk. An additional bone density evaluation was performed 11/04/2012 on the left total femur area using Lunar Dual Energy X-Ray Absorptiometry. The BMD average for the exam is 1.287 g/cm2. The T-score is 2.40 and the Z-score is 1.70. These values indicate 119.0% for age-matched controls. This matches the World Health Organization's criteria for normal bone density and places the patient within normal limits of fracture risk. IMPRESSION: BONE DENSITY WITHIN NORMAL LIMITS Patient is at normal risk for fracture. Dr. Buddy Sanchez M.D. [facility]/penrad:11/04/2012 17:26:42 News Agent: Brennen Waite, [facility] 11/04/2012 - - Read by: Buddy Sanchez Dictated Date/time: 11/04/12 17:26 Electronically Signed by: Buddy Sanchez MD 11/04/12 17:26 FINAL REPORT [facility] Digital Mammo Screening Jorge MA Digital Mammo Screening Jorge MA AMENDMENT: 11/19/2012 Artur Hawley M.D. Previous outside mammograms from 2008 have been received. No adverse interval change accounting for differences in technique. Patient should return for yearly screening mammogram. Amended BI-RADS: 1 Negative letter sent: Normal exam - DIGITAL MAMMO SCREENING JORGE MA BILATERAL DIGITAL SCREENING MAMMOGRAM WITH CAD: 11/04/2012 CLINICAL: Routine. Current study was evaluated with a Computer Aided Detection (CAD) system. No prior exams were available for comparison. Current study contains 8 films. The tissue of both breasts is heterogeneously dense. This may lower the sensitivity of mammography. No significant masses, calcifications, or other findings are seen in either breast. IMPRESSION: NEGATIVE There is no mammographic evidence of malignancy. A screening mammogram in one year is recommended. Abiola Aceves /penrad:11/16/2012 09:18:44 News Agent: Noé Lowery RT(R)(M), [facility] letter sent: Normal exam Mammogram BI-RADS: 1 Negative 11/04/2012 - - Read by: Abiola Aceves Dictated Date/time: 11/19/12 17:11 Electronically Signed by: Abiola Aceves MD 11/19/12 17:11 FINAL REPORT - - Read by: Abiola Aceves Dictated Date/time: 11/16/12 09:18 Electronically Signed by: Abiola Aceves MD 11/16/12 09:18 FINAL REPORT [facility] [place] CHEMISTRY U Preg Negative (07/21/2012 05:30:00) Negative 07/21/2012 Normal [facility] Vital Signs Vital Sign Value Date Comments Source Systolic (mm Hg) 115 04/21/2017 [facility] Diastolic (mm Hg) 57 04/21/2017 [facility] Respitory Rate 15 04/21/2017 [facility] Temperature Oral (F) 98.4 F 04/21/2017 [facility] Respitory Rate 15 04/21/2017 [facility] Systolic (mm Hg) 96 04/21/2017 [facility] Diastolic (mm Hg) 55 04/21/2017 [facility] Systolic (mm Hg) 99 04/21/2017 [facility] Diastolic (mm Hg) 50 04/21/2017 [facility] Respitory Rate 14 04/21/2017 [facility] Heart Rate 77 04/21/2017 [facility] Weight 109.091 04/21/2017 [facility] Height 157.48 cm 04/21/2017 [facility] Temperature Oral (F) 98.4 F 04/21/2017 [facility] BMI Calculated 43.99 04/21/2017 [facility] Respitory Rate 20 2016 [facility] Respitory Rate 18 2016 [facility] Systolic (mm Hg) 105 2016 [facility] Diastolic (mm Hg) 89 2016 [facility] Systolic (mm Hg) 150 2016 [facility] Diastolic (mm Hg) 65 2016 [facility] Respitory Rate 16 2016 [facility] Systolic (mm Hg) 116 2016 [facility] Diastolic (mm Hg) 67 2016 [facility] BMI Calculated 42.01 10/10/2016 [facility] Weight 104.176 10/10/2016 [facility] Height 157.48 cm 10/10/2016 [facility] Temperature Oral (F) 98.0 F 10/10/2016 [facility] Heart Rate 92 10/10/2016 [facility] Systolic (mm Hg) 131 04/15/2014 [facility] Diastolic (mm Hg) 84 04/15/2014 [facility] Respitory Rate 12 04/15/2014 [facility] Respitory Rate 20 04/15/2014 [facility] Systolic (mm Hg) 110 04/15/2014 [facility] Diastolic (mm Hg) 56 04/15/2014 [facility] Systolic (mm Hg) 94 04/15/2014 [facility] Respitory Rate 21 04/15/2014 [facility] Diastolic (mm Hg) 54 04/15/2014 [facility] Height 157.48 cm 04/13/2014 [facility] BMI Calculated 36.66 04/13/2014 [facility] Weight 90.909 04/13/2014 [facility] Temperature Oral (F) 98.5 F 04/13/2014 [facility] Diastolic (mm Hg) 54 07/21/2012 [facility] Systolic (mm Hg) 114 07/21/2012 [facility] Respitory Rate 17 07/21/2012 [facility] Respitory Rate 15 07/21/2012 [facility] Diastolic (mm Hg) 59 07/21/2012 [facility] Systolic (mm Hg) 108 07/21/2012 [facility] Diastolic (mm Hg) 68 07/21/2012 [facility] Systolic (mm Hg) 119 07/21/2012 [facility] Respitory Rate 24 07/21/2012 [facility] Heart Rate 85 07/21/2012 [facility] Height 157.48 cm 07/20/2012 [facility] Weight 90.909 07/20/2012 [facility] Heart Rate 78 07/20/2012 [facility] Temperature Oral (F) 98.7 F 07/20/2012 [facility] Systolic (mm Hg) 117 02/26/2012 [facility] Diastolic (mm Hg) 51 02/26/2012 [facility] Respitory Rate 12 02/26/2012 [facility] Systolic (mm Hg) 115 02/26/2012 [facility] Diastolic (mm Hg) 74 02/26/2012 [facility] Respitory Rate 14 02/26/2012 [facility] Systolic (mm Hg) 138 02/26/2012 [facility] Diastolic (mm Hg) 82 02/26/2012 [facility] Respitory Rate 11 02/26/2012 [facility] Weight 104.545 02/26/2012 [facility] Height 157.48 cm 02/26/2012 [facility] Heart Rate 72 02/26/2012 [facility] Respitory Rate 16 01/13/2012 [facility] Systolic (mm Hg) 127 01/13/2012 [facility] Diastolic (mm Hg) 79 01/13/2012 [facility] Respitory Rate 20 01/13/2012 [facility] Diastolic (mm Hg) 89 01/13/2012 [facility] Systolic (mm Hg) 118 01/13/2012 [facility] Diastolic (mm Hg) 97 01/13/2012 [facility] Systolic (mm Hg) 126 01/13/2012 [facility] Respitory Rate 19 01/13/2012 [facility] Temperature Oral (F) 98.7 F 01/07/2012 [facility] Heart Rate 85 01/07/2012 [facility] Weight 104.545 01/07/2012 [facility] Height 157.48 cm 01/07/2012 [facility] Systolic (mm Hg) 119 06/26/2011 [facility] Diastolic (mm Hg) 65 06/26/2011 [facility] Respitory Rate 15 06/26/2011 [facility] Systolic (mm Hg) 133 06/26/2011 [facility] Diastolic (mm Hg) 64 06/26/2011 [facility] Respitory Rate 15 06/26/2011 [facility] Systolic (mm Hg) 134 06/26/2011 [facility] Diastolic (mm Hg) 81 06/26/2011 [facility] Heart Rate 82 06/26/2011 [facility] Respitory Rate 20 06/26/2011 [facility] Heart Rate 70 06/25/2011 [facility] Temperature Oral (F) 98.1 F 06/25/2011 [facility] Height 157.48 cm 06/25/2011 [facility] Weight 95.455 06/25/2011 [facility] Diastolic (mm Hg) 60.0 04/10/2011 [facility] Systolic (mm Hg) 128.0 04/10/2011 [facility] Respitory Rate 18.0 04/10/2011 [facility] Respitory Rate 21.0 04/10/2011 [facility] Systolic (mm Hg) 133.0 04/10/2011 [facility] Diastolic (mm Hg) 55.0 04/10/2011 [facility] Respitory Rate 20.0 04/10/2011 [facility] Systolic (mm Hg) 126.0 04/10/2011 [facility] Diastolic (mm Hg) 80.0 04/10/2011 [facility] Weight 81.818 04/10/2011 [facility] Height 160.02 cm 04/10/2011 [facility] Heart Rate 81.0 04/10/2011 [facility] Temperature Oral (F) 97.6 F 04/10/2011 [facility] Encounters Location Location Details Encounter Type Encounter Number Reason For Visit Attending Provider ADM Date DC Date Status Source [facility] DS [id number] BASEM HAMID 04/10/2011 04/10/2011 Active [facility] [place] [id number] BASEM HAMID 06/26/2011 06/26/2011 Active [facility] [place] [id number] BASEM HAMID 01/13/2012 01/13/2012 Active [facility] DS [id number] BASEM HAMID 02/26/2012 02/26/2012 Active [facility] DS [id number] BASEM HAMID 07/21/2012 07/21/2012 Active [facility] Outpatient [id number] Uqita Soleja 12/30/2013 12/31/2013 [facility] OBS Day Surgery [id number] Basem Hamid 04/15/2014 04/15/2014 [facility] Outpatient [id number] Base Hamid 05/25/2014 05/26/2014 [facility] Outpatient [id number] Non Physician 10/20/2014 10/21/2014 [facility] Outpatient [id number] Quita Soleja 07/31/2015 08/01/2015 [facility] [place] [facility] Diag Services [id number] Rk Whiteside 05/31/2016 06/01/2016 [facility] Outpatient [id number] Base Hamid 06/25/2016 06/26/2016 [facility] Outpatient [id number] Rk Whiteside 10/21/2016 10/22/2016 [facility] Bedded Outpatient [id number] Raul Darmadi 2016 2016 [facility] Emergency [id number] Zay Iheme 04/21/2017 04/21/2017 [facility] Outpatient [id number] UNK BASE HAMID Cancel [facility] OD [id number] 715.09 - GENERAL OSTEOAR QUITA SOLEJA Cancel [facility] [place] Procedures Procedure Code Date Perfomer Comments Source Appendectomy [id number] [facility] Bladder operation [id number] [facility] Cholecystectomy [id number] [facility] Fusion of lumbar spine [id number] [facility] Hernia repair 69063837 [facility] Hysterectomy 746639668 [facility] Implantation of electronic stimulator of spine 18526534 [facility] Procedure<sup>1</sup> [id number] multiple back procedures [facility] Appendectomy [id number] [facility] [place] Bladder operation [id number] [facility] [place] Cholecystectomy [id number] [facility] [place] Fusion of lumbar spine [id number] [facility] [place] Hernia repair [id number] [facility] [place] Hysterectomy [id number] [facility] [place] Procedure<sup>1</sup> [id number] multiple back procedures ROSA [facility] Procedure <sup>1</sup> [id number] 1multiple back procedures [facility]
--- OUTSIDE RECORDS SUMMARY | 2018-05-16 10:51 | XMS REPORT | CCD ---
Author Author Auto Generated Organization [facility] Address Unknown Phone Unavailable Care Team Providers Care Event Planning Manager Name Role Phone Linnea Torres RP Allergies, Adverse Reactions, Alerts Substance Reaction Status aspirin Active Bactrim Active Latex Blisters Active penicillin Active sulfa drugs Active Medications Medication Instructions Start Date End Date Status Xopenex HFA 45 2 puff, INHALATION, Q4H, PRN, as 01/07/2012 Ordered mcg/inh inhalation needed for wheezing, Substitution aerosol with adapter Allowed, Soft Stop multivitamin with 1 cap, PO, Daily, 60 cap, 01/07/2012 Ordered minerals Multiple Substitution Allowed, Soft Stop, Vitamins with Zinc CAP oral capsule Premarin 0.625 mg 0.625 mg, 1 tab, PO, Daily, 30 tab, 01/07/2012 Ordered oral tablet Substitution Allowed, TAB meloxicam 15 mg oral 15 mg, 1 tab, PO, Daily, 90 tab, 01/07/2012 Ordered tablet Substitution Allowed, TAB Epitol 200 mg oral 400 mg, 2 tab, PO, BID, 120 tab, 01/07/2012 Ordered tablet Substitution Allowed, TAB flumazenil 0.2 mg, 2 mL, Route: IVP, Drug 01/13/2012 01/13/2012 Discontinued form: INJ, PRN, PRN Benzodiazepine Reversal, Initial dose, Start date: 01/13/12 8:37:00, Duration: 30 day, Stop date: 02/12/12 8:36:00 acetaminophen-hydroc 1 tab, Route: PO, Drug Form: TAB, 01/13/2012 01/13/2012 Discontinued odone 325 mg-5 mg Q4H, PRN Pain Score 1-3, Start oral tablet date: 01/13/12 8:37:00, Duration: 30 day, Stop date: 02/12/12 8:36:00 acetaminophen-hydroc 2 tab, Route: PO, Drug Form: TAB, 01/13/2012 01/13/2012 Discontinued odone 325 mg-5 mg Q4H, PRN Pain Score 4-6, Start oral tablet date: 01/13/12 8:37:00, Duration: 30 day, Stop date: 02/12/12 8:36:00 ondansetron 4 mg, 2 mL, Route: IVP, Drug form: 01/13/2012 01/13/2012 Completed INJ, ONCE, PRN Nausea & Vomiting, Start date: 01/13/12 8:37:00 naloxone 0.04 mg, 0.04 mL, Route: IVP, Drug 01/13/2012 01/13/2012 Discontinued form: INJ, Q2MIN, PRN Narcotic Reversal, Start date: 01/13/12 8:37:00, Duration: 8 doses or times, Stop date: Limited # of times hydromorphone 0.5 mg, 0.25 mL, Route: IVP, Drug 01/13/2012 01/13/2012 Completed form: INJ, Q5Min, PRN Pain Score 4-6, Start date: 01/13/12 8:37:00, Duration: 5 doses or times, Stop date: Limited # of times fentanyl 25 microgram, 0.5 mL, Route: IVP, 01/13/2012 01/13/2012 Discontinued Drug form: INJ, Q5Min, PRN Pain Score 4-6, Start date: 01/13/12 8:37:00, Duration: 4 doses or times, Stop date: Limited # of times Lactated Ringers 1,000 mL, Rate: 25 ml/hr, Infuse 01/13/2012 01/13/2012 Discontinued Injection IV 1,000 over: 40 hr, Route: IV, Dosing mL Weight 104.545 kg, Total Volume: 1,000, Start date: 01/13/12 6:53:00, Duration: 30 day, Stop date: 02/12/12 6:52:00 Vital Signs Most recent to oldest [Reference Range]: 1 2 3 Height 157.48 cm (01/07/2012 07:53:00) Temperature Oral [96.4-99.1 DegF] 98.7 DegF (01/07/2012 08:13:00) Systolic Blood Pressure [90-140 mmHg] 127 mmHg (01/13/2012 09:30:00) 118 mmHg (01/13/2012 09:15:00) 126 mmHg (01/13/2012 09:00:00) Diastolic Blood Pressure [60-90 mmHg] 79 mmHg (01/13/2012 09:30:00) 89 mmHg (01/13/2012 09:15:00) 97 mmHg *HI* (01/13/2012 09:00:00) Respiratory Rate [14-20 BRMIN] 16 BRMIN (01/13/2012 09:30:00) 20 BRMIN (01/13/2012 09:15:00) 19 BRMIN (01/13/2012 09:00:00) Peripheral Pulse Rate [60-100 bpm] 85 bpm (01/07/2012 08:13:00) Weight 104.545 kg (01/07/2012 07:53:00)
[2018-05-16] MEDS ORDERED: ONDANSETRON HCL INJ 2 MG/ML VIAL IV STA (11:57)
[2018-05-16 12:09] LABS: BASOPHILS % 0.2 % (0.0-1.0); EOSINOPHILS % 0.2 % (0.0-6.0); HEMATOCRIT 42.6 % (34.2-44.1); HEMOGLOBIN 14.8 g/dL (12.0-16.0); LYMPHOCYTES # (AUTO) 1.3 (1.0-3.2); MEAN CORPUSCULAR HEMOGLOBIN 29.7 pg (28-32); MEAN CORPUSCULAR HGB CONC 34.7 g/dL (31-35); MEAN CORPUSCULAR VOLUME 85.5 fL (81-99); NEUTROPHILS # (AUTO) 10.5 (2.1-6.9); NEUTROPHILS % 81.3 % (38.7-80.0); PLATELET COUNT 387 x10e3/uL (140-360); RED BLOOD COUNT 4.98 x10e6/uL (3.6-5.1); RED CELL DISTRIBUTION WIDTH 13.4 % (11.7-14.4)
[2018-05-16 12:14] LABS: CLARITY,URINE SL CLOUDY (CLEAR); COLOR,URINE YELLOW (YELLOW)
[2018-05-16 12:15] LABS: KETONES,URINE 2+ (NEGATIVE); LEUKOCYTE ESTERASE ,URINE NEGATIVE (NEGATIVE); NITRITE,URINE NEGATIVE (NEGATIVE); PHENCYCLIDINE SCREEN,URINE NEGATIVE (NEGATIVE); PROTEIN,URINE DIPSTICK 2+ (NEGATIVE)
[2018-05-16 12:16] LABS: AMPHETAMINES SCREEN,URINE NEGATIVE (NEGATIVE); BENZODIAZEPINES SCREEN,URINE NEGATIVE (NEGATIVE); BILIRUBIN,URINE 2+ (NEGATIVE); URINE UROBILINOGEN 1 mg/dL (0.2 - 1)
[2018-05-16 12:17] LABS: PREGNANCY TEST, URINE NEGATIVE (NEGATIVE)
[2018-05-16 12:22] LABS: ALBUMIN 4.3 g/dL (3.5-5.0); ANION GAP 21.2 mmol/L (8-16); CALCIUM 10.5 mg/dL (8.4-10.2); CREATININE, SERUM 1.25 mg/dL (0.57-1.11); POTASSIUM 3.2 mmol/L (3.5-5.1)
[2018-05-16 12:30] LABS: AMORPHOUS SEDIMENT,URINE MODERATE (FEW); BACTERIA,URINE MODERATE /HPF; EPITHELIAL CELLS,URINE FEW /LPF; MUCUS,URINE MODERATE (RARE); RBC,URINE 0-5 /HPF (0-5)
--- NOTE | 2018-05-16 13:44 | Diagnostic Imaging Report ---
EXAM: Abdomen 2 Views INDICATION: ^states constipation ^[id number] ^1240 COMPARISON: CT dated 03/26/2016 FINDINGS: Right lower abdomen spine stimulator device with leads overlying the thoracic spine vertebral bodies. Lung bases are clear. Dilated gas-filled bowel loops in the central abdomen. No signs of pneumoperitoneum. No acute osseous or mildly. Narrowing of lower lumbar spine disc spaces. Lower lumbar spine fixating pin. IMPRESSION: 1. Gaseous distention of bowel loops, concerning for at least partial obstruction. Signed by: Dr. Gee Yin MD on 05/16/2018 1:38 PM
[2018-05-16] MEDS ORDERED: SODIUM CHLORIDE 0.9% 1000ML 1,000 ML IV SCH (14:15)
[2018-05-16] MEDS ORDERED: ONDANSETRON HCL INJ 2 MG/ML VIAL IV ONE (14:45)
--- NOTE | 2018-05-16 15:59 | Diagnostic Imaging Report ---
EXAM: CT Abdomen and Pelvis WITH contrast INDICATION: ^generalized abd pain, elevated WBC, constipation ^[id number] ^1452 COMPARISON: CT dated 03/26/2016 and same day KUB TECHNIQUE: Abdomen and pelvis were scanned utilizing a multidetector helical scanner from the lung base to the pubic symphysis after administration of IV contrast. Coronal and sagittal reformations were obtained. Dose modulation, iterative reconstruction, and/or weight based adjustment of the mA/kV was utilized to reduce the radiation dose to as low as reasonably achievable. Routine protocol was performed. Scan was performed when during portal venous phase. IV CONTRAST: 100 mL of Isovue-300 ORAL CONTRAST: Water COMPLICATIONS: None RADIATION DOSE: Total DLP: 619.16 mGy*cm Estimated effective dose: (DLP x 0.015 x size factor) mSv CTDIvol has been reviewed. It is below the limits set by the Radiation Protocol Committee (RPC). FINDINGS: LINES and TUBES: Right lower back stimulator device in place. Tips extending to the thoracic spine. LOWER THORAX: Unremarkable HEPATOBILIARY: No focal hepatic lesions. No biliary ductal dilation. GALLBLADDER: Surgically absent. SPLEEN: No splenomegaly. PANCREAS: Atrophic. No focal masses or ductal dilatation. ADRENALS: No adrenal nodules KIDNEYS/URETERS: Kidneys enhance symmetrically. No hydronephrosis. No cystic or solid mass lesions. Unchanged subcentimeter right inferior pole hypodensity which is too small to characterize. No stones. GI TRACT: Diffusely distended small bowel loops along with collapsed distal ileal loops with transition point in mid abdomen (series 2, image 47). Appendix is nonvisualized visualized. Evidence of gastric surgery. Small sliding hiatal hernia. PELVIC ORGANS/BLADDER: Hysterectomy. Bladder is under distended. LYMPH NODES: No lymphadenopathy. VESSELS: Unremarkable. PERITONEUM / RETROPERITONEUM: No free air. Trace ascites. BONES: Anterior L4. Fixation. L4-L5 and L5-S1 disc space narrowing. SOFT TISSUES: Unremarkable. IMPRESSION: 1. High-grade small bowel obstruction with transition point in mid abdomen Signed by: Dr. Gee Yin MD on 05/16/2018 3:56 PM
[2018-05-16] MEDS ORDERED: BENZOCAINE/TETRACAINE/BUTAMBEN AERO SPRAY 56 GM CAN TOP ONE (17:15)
[2018-05-16] MEDS ORDERED: BUTORPHANOL TARTRATE INJ 1 MG/ML VIAL IV ONE (17:30)
[2018-05-16] MEDS ORDERED: IOPAMIDOL 370 MG/ML 200 ML INFUS..BTL INJ ONE (17:45)
[2018-05-16] MEDS ORDERED: SODIUM CHLORIDE 0.9% 50ML 50 ML ONE (17:45)
[2018-05-17] MEDS ORDERED: SODIUM CHLORIDE 0.9% 1000ML 1,000 ML IV SCH (14:15)
== END 2018-05-16 18:33 | disposition other institution (70) ==
LOC: ER 10:47
DX: R10.84 Generalized abdominal pain (principal); K56.50 Intestinal adhesions [bands], unspecified as to partial versus complete obstruction; R11.2 Nausea with vomiting, unspecified; N30.90 Cystitis, unspecified without hematuria
CPT/HCPCS: 36415; 74018; 74177; 80053; 80307; 81001; 81025; 85025; 99284; J0595; J2405; J7030; Q9967

== ENCOUNTER 2018-08-26 12:05 | Emergency (ER) | payer MEDICARE, OTHER ==
[~2018-08-26] VITALS: Ht 157.5 cm; Wt 103.9 kg
--- OUTSIDE RECORDS SUMMARY | 2018-08-26 12:10 | XMS REPORT | Clinical Summary ---
Author Author YORDAN [facility] Organization [facility] Address Unknown Phone Unavailable Care Team Providers Care Fast Food Supervisor Name Role Phone Rk Whiteside MD PCP Allergies Comments Active Allergy Reactions Severity Noted Date Aspirin Hives 05/16/2018 Sulfamethoxazole-Trimetho Hives 05/16/2018 prim Latex Hives 05/16/2018 Methadone Hives 05/16/2018 Penicillins Hives 05/16/2018 Sulfa (Sulfonamide Hives 05/16/2018 Antibiotics) Medications End Date Status Medication Sig Dispensed Refills Start Date Active ARIPiprazole (ABILIFY) 5 Take 5 mg by 0 MG tablet mouth daily. Active cetirizine (ZYRTEC) 10 MG Take 10 mg by 0 tablet mouth daily. Active clonazePAM (KLONOPIN) 0.5 Take 0.5 mg 0 MG tablet by mouth daily as needed for Anxiety. Active furosemide (LASIX) 40 MG Take 40 mg by 0 tablet mouth daily. Active gabapentin (NEURONTIN) Take 600 mg 0 600 MG tablet by mouth 4 (four) times daily. Active ipratropium-albuterol Take 3 mLs by 0 (DUO-NEB) 0.5 mg-3 mg(2.5 nebulization mg base)/3 mL nebulizer every 4 solution (four) hours as needed for Wheezing. Active lidocaine (XYLOCAINE) 5 % Apply 0 ointment topically daily. Active montelukast (SINGULAIR) Take 10 mg by 0 10 mg tablet mouth nightly. Active omeprazole (PRILOSEC) 40 Take 40 mg by 0 MG capsule mouth 2 (two) times daily. Active ondansetron (ZOFRAN) 4 MG Take 4 mg by 0 tablet mouth 2 (two) times daily. Active albuterol HFA (VENTOLIN Inhale 1 puff 0 HFA) 90 mcg/actuation by mouth via inhaler inhaler every 4 (four) hours as needed for Wheezing. Active docusate sodium (COLACE) Take 100 mg 0 100 MG capsule by mouth 2 (two) times daily. 08/31/2018 Active bisacodyl (DULCOLAX) 10 Place 1 90 0 mg suppository suppository suppository 8 (10 mg total) rectally daily as needed for up to 90 days. 06/02/2019 Active ferrous sulfate 325 (65 Take 1 tablet 45 tablet 3 FE) MG tablet (325 mg 8 total) by mouth every other day. 08/31/2018 Active ascorbic Acid (VITAMIN C) Take 1 90 capsule 3 500 mg CpER SR capsule capsule (500 8 mg total) by mouth daily for 90 days. 06/02/2018 Discontinued hydroCHLOROthiazide Take 25 mg by 0 (HYDRODIURIL) 25 MG mouth daily. tablet 06/02/2018 Discontinued losartan (COZAAR) 50 MG Take 50 mg by 0 tablet mouth daily. 06/02/2018 Discontinued morphine (MSIR) 15 MG Take 15 mg by 0 tablet mouth every 12 (twelve) hours. 06/02/2018 Discontinued oxyCODONE-acetaminophen Take 1 tablet 0 (PERCOCET) 10-325 mg per by mouth tablet every 6 (six) hours. 08/02/2018 naloxegol 12.5 mg Oral Take 1 tablet 60 tablet 1 Tab tablet (12.5 mg 8 total) by mouth daily for 60 days. 06/09/2018 ondansetron (ZOFRAN-ODT) Take 1 tablet 20 tablet 0 4 MG disintegrating (4 mg total) 8 tablet by mouth every 8 (eight) hours as needed for up to 7 days. 06/11/2018 polyethylene glycol Take 17 g by 306 g 3 (GLYCOLAX) 17 gram packet mouth 2 (two) 8 times daily for 9 days. 06/18/2018 oxyCODONE-acetaminophen Take 1 tablet 64 tablet 0 (PERCOCET) 10-325 mg per by mouth 8 tablet every 6 (six) hours for 16 days. Max Daily Amount: 4 tablets 06/18/2018 morphine (MSIR) 15 MG Take 1 tablet 32 tablet 0 tablet (15 mg total) 8 by mouth every 12 (twelve) hours for 16 days. Max Daily Amount: 30 mg Active Problems Problem Noted Date Hypokalemia 05/17/2018 Small bowel obstruction 05/16/2018 Encounters Care Team Description Date Type Specialty Swetha Amaya MD LAPAROTOMY,EXPLORATORY 05/21/2018 Surgery Shabana Abbasi MD 05/21/2018 Anesthesia Event Panchito Oakley MD Shamsee, Samantha Clarke, Jesús Powell MD Agrawal, Neeraj, MD Heinen, Madhavi Amato MD Small bowel obstruction (HCC); Hypokalemia; Essential hypertension; Right acute serous otitis media, recurrence not specified; Chronic pain syndrome; Therapeutic opioid induced constipation; Iron deficiency anemia secondary to inadequate dietary iron intake; Iron deficiency anemia, unspecified iron deficiency anemia type 05/16/2018 [facility] General Internal Medicine - Encounter 06/02/2018 after 08/25/2017 Family History Medical History Relation Name Comments Diabetes Father Hypertension Father Diabetes Mother Hypertension Mother Diabetes Paternal Grandfather Hypertension Paternal Grandfather Diabetes Paternal Grandmother Hypertension Paternal Grandmother Relation Name Status Comments Father Mother Paternal Grandfather Paternal Grandmother Social History Date Tobacco Use Types Packs/Day Years Used Never Smoker Smokeless Tobacco: Never Used Alcohol Use Drinks/Week oz/Week Comments No Alcohol Habits Answer Date Recorded How often do you have a drink containing alcohol? Never 05/16/2018 How many drinks containing alcohol do you have on Not asked a typical day when you are drinking? How often do you have six or more drinks on one Not asked occasion? Sex Assigned at Date Recorded Not on file Industry Job Start Date Occupation Not on file Not on file Not on file Travel End Travel History Travel Start No recent travel history available. Last Filed Vital Signs Time Taken Vital Sign Reading 06/02/2018 11:37 AM ACCOUNT EXECUTIVE SALES REPRESENTATIVE Blood Pressure 110/52 06/02/2018 11:37 AM ACCOUNT EXECUTIVE SALES REPRESENTATIVE Pulse 94 06/02/2018 11:37 AM ACCOUNT EXECUTIVE SALES REPRESENTATIVE Temperature 36.3 C (97.3 F) 06/02/2018 11:37 AM ACCOUNT EXECUTIVE SALES REPRESENTATIVE Respiratory Rate 18 06/02/2018 11:37 AM ACCOUNT EXECUTIVE SALES REPRESENTATIVE Oxygen Saturation 97% - Inhaled Oxygen - Concentration 05/30/2018 5:40 AM ACCOUNT EXECUTIVE SALES REPRESENTATIVE Weight 80.7 kg (178 lb) 05/17/2018 10:57 AM ACCOUNT EXECUTIVE SALES REPRESENTATIVE Height 157.5 cm (5' 2") 05/30/2018 5:40 AM ACCOUNT EXECUTIVE SALES REPRESENTATIVE Body Mass Index 32.56 Plan of Treatment Not on file Implants Device Identifier Shelf Expiration Date Model / Serial / Lot Implanted Type Area Manufactur er 03/15/2020 4301-02 / / [id number] Memb [employer] Adhen Jacques 5x6 Cement/Jorge GENZYME 4301-02 - [id number] ler/Adhesi KE: Implanted: Qty: 1 on 05/21/2018 by Swetha Booth MD 04/15/2020 4301-02 / / [id number] Memb [employer] Adhen Jacques 5x6 Cement/Jorge GENZYME 4301-02 - [id number] ler/Adhesi KE: Implanted: Qty: 1 on 05/21/2018 by Swetha Booth MD Procedures Comments Procedure Name Priority Date/Time Associated Diagnosis CBC W/PLT COUNT & AUTO Routine 06/02/2018 DIFFERENTIAL 4:47 AM ACCOUNT EXECUTIVE SALES REPRESENTATIVE CBC W/PLT COUNT & AUTO Routine 06/02/2018 DIFFERENTIAL 4:47 AM ACCOUNT EXECUTIVE SALES REPRESENTATIVE CBC W/PLT COUNT & AUTO Routine 06/01/2018 DIFFERENTIAL 3:51 AM ACCOUNT EXECUTIVE SALES REPRESENTATIVE PHOSPHORUS Routine 06/01/2018 3:51 AM ACCOUNT EXECUTIVE SALES REPRESENTATIVE MAGNESIUM Routine 06/01/2018 3:51 AM ACCOUNT EXECUTIVE SALES REPRESENTATIVE BASIC METABOLIC PANEL (7) Routine 06/01/2018 3:51 AM ACCOUNT EXECUTIVE SALES REPRESENTATIVE CBC W/PLT COUNT & AUTO Routine 06/01/2018 DIFFERENTIAL 3:51 AM ACCOUNT EXECUTIVE SALES REPRESENTATIVE CBC (HEMOGRAM ONLY) Routine 05/31/2018 3:27 PM ACCOUNT EXECUTIVE SALES REPRESENTATIVE CBC W/PLT COUNT & AUTO Routine 05/31/2018 DIFFERENTIAL 4:10 AM ACCOUNT EXECUTIVE SALES REPRESENTATIVE RETICULOCYTE COUNT Routine 05/31/2018 4:10 AM ACCOUNT EXECUTIVE SALES REPRESENTATIVE PHOSPHORUS Routine 05/31/2018 4:10 AM ACCOUNT EXECUTIVE SALES REPRESENTATIVE MAGNESIUM Routine 05/31/2018 4:10 AM ACCOUNT EXECUTIVE SALES REPRESENTATIVE BASIC METABOLIC PANEL (7) Routine 05/31/2018 4:10 AM ACCOUNT EXECUTIVE SALES REPRESENTATIVE CBC W/PLT COUNT & AUTO Routine 05/31/2018 DIFFERENTIAL 4:10 AM ACCOUNT EXECUTIVE SALES REPRESENTATIVE POCT-GLUCOSE METER Routine 05/30/2018 5:42 PM ACCOUNT EXECUTIVE SALES REPRESENTATIVE C. DIFFICILE GDH TOXIN Routine 05/30/2018 2:12 PM ACCOUNT EXECUTIVE SALES REPRESENTATIVE HEMOGLOBIN AND HEMATOCRIT Routine 05/30/2018 1:12 PM ACCOUNT EXECUTIVE SALES REPRESENTATIVE VITAMIN B12 AND FOLATE Routine 05/30/2018 1:12 PM ACCOUNT EXECUTIVE SALES REPRESENTATIVE FERRITIN Routine 05/30/2018 1:12 PM ACCOUNT EXECUTIVE SALES REPRESENTATIVE IRON, TIBC, % SAT. Routine 05/30/2018 (WITHOUT FERRITIN) 1:12 PM ACCOUNT EXECUTIVE SALES REPRESENTATIVE POCT-GLUCOSE METER Routine 05/30/2018 11:24 AM ACCOUNT EXECUTIVE SALES REPRESENTATIVE POCT-GLUCOSE METER Routine 05/30/2018 5:31 AM ACCOUNT EXECUTIVE SALES REPRESENTATIVE CBC W/PLT COUNT & AUTO Routine 05/30/2018 DIFFERENTIAL 5:12 AM ACCOUNT EXECUTIVE SALES REPRESENTATIVE PHOSPHORUS Routine 05/30/2018 5:12 AM ACCOUNT EXECUTIVE SALES REPRESENTATIVE MAGNESIUM Routine 05/30/2018 5:12 AM ACCOUNT EXECUTIVE SALES REPRESENTATIVE BASIC METABOLIC PANEL (7) Routine 05/30/2018 5:12 AM ACCOUNT EXECUTIVE SALES REPRESENTATIVE CBC W/PLT COUNT & AUTO Routine 05/30/2018 DIFFERENTIAL 5:12 AM ACCOUNT EXECUTIVE SALES REPRESENTATIVE POCT-GLUCOSE METER Routine 05/29/2018 10:21 PM ACCOUNT EXECUTIVE SALES REPRESENTATIVE POCT-GLUCOSE METER Routine 05/29/2018 12:35 PM ACCOUNT EXECUTIVE SALES REPRESENTATIVE POCT-GLUCOSE METER Routine 05/29/2018 5:54 AM ACCOUNT EXECUTIVE SALES REPRESENTATIVE POCT-GLUCOSE METER Routine 05/29/2018 12:21 AM ACCOUNT EXECUTIVE SALES REPRESENTATIVE XR CHEST 1 VIEW Routine 05/28/2018 PORTABLE/BEDSIDE 5:54 PM ACCOUNT EXECUTIVE SALES REPRESENTATIVE ECG 12-LEAD Routine 05/28/2018 4:33 PM ACCOUNT EXECUTIVE SALES REPRESENTATIVE POCT-GLUCOSE METER Routine 05/28/2018 4:29 PM ACCOUNT EXECUTIVE SALES REPRESENTATIVE CT ABDOMEN/PELVIS WITH IV Routine 05/28/2018 CONTRAST 4:13 PM ACCOUNT EXECUTIVE SALES REPRESENTATIVE POCT-GLUCOSE METER Routine 05/28/2018 1:28 PM ACCOUNT EXECUTIVE SALES REPRESENTATIVE CT ABDOMEN/PELVIS WITHOUT STAT 05/28/2018 IV CONTRAST 1:27 PM ACCOUNT EXECUTIVE SALES REPRESENTATIVE POCT-GLUCOSE METER Routine 05/28/2018 6:07 AM ACCOUNT EXECUTIVE SALES REPRESENTATIVE CBC W/PLT COUNT & AUTO Routine 05/28/2018 DIFFERENTIAL 5:18 AM ACCOUNT EXECUTIVE SALES REPRESENTATIVE PHOSPHORUS Routine 05/28/2018 5:18 AM ACCOUNT EXECUTIVE SALES REPRESENTATIVE MAGNESIUM Routine 05/28/2018 5:18 AM ACCOUNT EXECUTIVE SALES REPRESENTATIVE BASIC METABOLIC PANEL (7) Routine 05/28/2018 5:18 AM ACCOUNT EXECUTIVE SALES REPRESENTATIVE CBC W/PLT COUNT & AUTO Routine 05/28/2018 DIFFERENTIAL 5:18 AM ACCOUNT EXECUTIVE SALES REPRESENTATIVE POCT-GLUCOSE METER Routine 05/27/2018 11:16 PM ACCOUNT EXECUTIVE SALES REPRESENTATIVE POCT-GLUCOSE METER Routine 05/27/2018 5:10 PM ACCOUNT EXECUTIVE SALES REPRESENTATIVE POCT-GLUCOSE METER Routine 05/27/2018 1:07 PM ACCOUNT EXECUTIVE SALES REPRESENTATIVE CBC W/PLT COUNT & AUTO Routine 05/27/2018 DIFFERENTIAL 5:59 AM ACCOUNT EXECUTIVE SALES REPRESENTATIVE PHOSPHORUS Routine 05/27/2018 5:59 AM ACCOUNT EXECUTIVE SALES REPRESENTATIVE MAGNESIUM Routine 05/27/2018 5:59 AM ACCOUNT EXECUTIVE SALES REPRESENTATIVE BASIC METABOLIC PANEL (7) Routine 05/27/2018 5:59 AM ACCOUNT EXECUTIVE SALES REPRESENTATIVE CBC W/PLT COUNT & AUTO Routine 05/27/2018 DIFFERENTIAL 5:59 AM ACCOUNT EXECUTIVE SALES REPRESENTATIVE POCT-GLUCOSE METER Routine 05/27/2018 5:15 AM ACCOUNT EXECUTIVE SALES REPRESENTATIVE POCT-GLUCOSE METER Routine 05/26/2018 10:43 PM ACCOUNT EXECUTIVE SALES REPRESENTATIVE POCT-GLUCOSE METER Routine 05/26/2018 4:03 PM ACCOUNT EXECUTIVE SALES REPRESENTATIVE POCT-GLUCOSE METER Routine 05/26/2018 1:38 PM ACCOUNT EXECUTIVE SALES REPRESENTATIVE POCT-GLUCOSE METER Routine 05/26/2018 8:20 AM ACCOUNT EXECUTIVE SALES REPRESENTATIVE CBC W/PLT COUNT & AUTO Routine 05/26/2018 DIFFERENTIAL 2:14 AM ACCOUNT EXECUTIVE SALES REPRESENTATIVE PHOSPHORUS Routine 05/26/2018 2:14 AM ACCOUNT EXECUTIVE SALES REPRESENTATIVE MAGNESIUM Routine 05/26/2018 2:14 AM ACCOUNT EXECUTIVE SALES REPRESENTATIVE BASIC METABOLIC PANEL (7) Routine 05/26/2018 2:14 AM ACCOUNT EXECUTIVE SALES REPRESENTATIVE CBC W/PLT COUNT & AUTO Routine 05/26/2018 DIFFERENTIAL 2:14 AM ACCOUNT EXECUTIVE SALES REPRESENTATIVE POCT-GLUCOSE METER Routine 05/25/2018 10:44 PM ACCOUNT EXECUTIVE SALES REPRESENTATIVE XR CHEST 1 VIEW TONIA 05/25/2018 PORTABLE/BEDSIDE 5:30 PM ACCOUNT EXECUTIVE SALES REPRESENTATIVE POCT-GLUCOSE METER Routine 05/25/2018 3:56 PM ACCOUNT EXECUTIVE SALES REPRESENTATIVE BLOOD CULTURE Routine 05/25/2018 12:14 PM ACCOUNT EXECUTIVE SALES REPRESENTATIVE BLOOD CULTURE Routine 05/25/2018 12:09 PM ACCOUNT EXECUTIVE SALES REPRESENTATIVE POCT-GLUCOSE METER Routine 05/25/2018 11:36 AM ACCOUNT EXECUTIVE SALES REPRESENTATIVE MAGNESIUM Routine 05/25/2018 8:03 AM ACCOUNT EXECUTIVE SALES REPRESENTATIVE PHOSPHORUS Routine 05/25/2018 8:03 AM ACCOUNT EXECUTIVE SALES REPRESENTATIVE BASIC METABOLIC PANEL (7) Routine 05/25/2018 8:03 AM ACCOUNT EXECUTIVE SALES REPRESENTATIVE POCT-GLUCOSE METER Routine 05/25/2018 5:29 AM ACCOUNT EXECUTIVE SALES REPRESENTATIVE CBC W/PLT COUNT & AUTO Routine 05/25/2018 DIFFERENTIAL 2:16 AM ACCOUNT EXECUTIVE SALES REPRESENTATIVE CBC W/PLT COUNT & AUTO Routine 05/25/2018 DIFFERENTIAL 2:16 AM ACCOUNT EXECUTIVE SALES REPRESENTATIVE POCT-GLUCOSE METER Routine 05/24/2018 10:22 PM ACCOUNT EXECUTIVE SALES REPRESENTATIVE POCT-GLUCOSE METER Routine 05/24/2018 5:31 PM ACCOUNT EXECUTIVE SALES REPRESENTATIVE POCT-GLUCOSE METER Routine 05/24/2018 11:40 AM ACCOUNT EXECUTIVE SALES REPRESENTATIVE POCT-GLUCOSE METER Routine 05/24/2018 5:29 AM ACCOUNT EXECUTIVE SALES REPRESENTATIVE (CELLAVISION MANUAL DIFF) Routine 05/24/2018 5:05 AM ACCOUNT EXECUTIVE SALES REPRESENTATIVE CBC W/PLT COUNT & AUTO Routine 05/24/2018 DIFFERENTIAL 5:05 AM ACCOUNT EXECUTIVE SALES REPRESENTATIVE CBC W/PLT COUNT & AUTO Routine 05/24/2018 DIFFERENTIAL 5:05 AM ACCOUNT EXECUTIVE SALES REPRESENTATIVE PHOSPHORUS Routine 05/24/2018 5:05 AM ACCOUNT EXECUTIVE SALES REPRESENTATIVE MAGNESIUM Routine 05/24/2018 5:05 AM ACCOUNT EXECUTIVE SALES REPRESENTATIVE CALCIUM, IONIZED Routine 05/24/2018 5:05 AM ACCOUNT EXECUTIVE SALES REPRESENTATIVE BASIC METABOLIC PANEL (7) Routine 05/24/2018 5:05 AM ACCOUNT EXECUTIVE SALES REPRESENTATIVE POCT-GLUCOSE METER Routine 05/23/2018 10:24 PM ACCOUNT EXECUTIVE SALES REPRESENTATIVE POCT-GLUCOSE METER Routine 05/23/2018 5:18 PM ACCOUNT EXECUTIVE SALES REPRESENTATIVE POCT-GLUCOSE METER Routine 05/23/2018 11:50 AM ACCOUNT EXECUTIVE SALES REPRESENTATIVE XR ABDOMEN 1 VIEW STAT 05/23/2018 11:10 AM ACCOUNT EXECUTIVE SALES REPRESENTATIVE POCT-GLUCOSE METER Routine 05/23/2018 6:22 AM ACCOUNT EXECUTIVE SALES REPRESENTATIVE TRIGLYCERIDES Routine 05/23/2018 5:06 AM ACCOUNT EXECUTIVE SALES REPRESENTATIVE PHOSPHORUS Routine 05/23/2018 5:06 AM ACCOUNT EXECUTIVE SALES REPRESENTATIVE MAGNESIUM Routine 05/23/2018 5:06 AM ACCOUNT EXECUTIVE SALES REPRESENTATIVE CALCIUM, IONIZED Routine 05/23/2018 5:06 AM ACCOUNT EXECUTIVE SALES REPRESENTATIVE BASIC METABOLIC PANEL (7) Routine 05/23/2018 5:06 AM ACCOUNT EXECUTIVE SALES REPRESENTATIVE POCT-GLUCOSE METER Routine 05/23/2018 12:23 AM ACCOUNT EXECUTIVE SALES REPRESENTATIVE TRANSFUSION SERVICE 05/22/2018 REPORT - SCAN 6:00 PM ACCOUNT EXECUTIVE SALES REPRESENTATIVE XR CHEST 1 VIEW STAT 05/22/2018 PORTABLE/BEDSIDE 11:00 AM ACCOUNT EXECUTIVE SALES REPRESENTATIVE (CELLAVISION MANUAL DIFF) Routine 05/22/2018 5:41 AM ACCOUNT EXECUTIVE SALES REPRESENTATIVE CBC W/PLT COUNT & AUTO Routine 05/22/2018 DIFFERENTIAL 5:41 AM ACCOUNT EXECUTIVE SALES REPRESENTATIVE PHOSPHORUS Routine 05/22/2018 5:41 AM ACCOUNT EXECUTIVE SALES REPRESENTATIVE MAGNESIUM Routine 05/22/2018 5:41 AM ACCOUNT EXECUTIVE SALES REPRESENTATIVE CALCIUM, IONIZED Routine 05/22/2018 5:41 AM ACCOUNT EXECUTIVE SALES REPRESENTATIVE BASIC METABOLIC PANEL (7) Routine 05/22/2018 5:41 AM ACCOUNT EXECUTIVE SALES REPRESENTATIVE CBC W/PLT COUNT & AUTO Routine 05/22/2018 DIFFERENTIAL 5:41 AM ACCOUNT EXECUTIVE SALES REPRESENTATIVE LAPAROTOMY,EXPLORATORY 05/21/2018 Small bowel obstruction 6:55 PM ACCOUNT EXECUTIVE SALES REPRESENTATIVE (HCC) PT/APTT Routine 05/21/2018 7:38 AM ACCOUNT EXECUTIVE SALES REPRESENTATIVE PROTHROMBIN TIME/INR Routine 05/21/2018 7:38 AM ACCOUNT EXECUTIVE SALES REPRESENTATIVE TYPE AND SCREEN, Routine 05/21/2018 AUTOMATED 7:00 AM ACCOUNT EXECUTIVE SALES REPRESENTATIVE CBC W/PLT COUNT & AUTO Routine 05/21/2018 DIFFERENTIAL 3:56 AM ACCOUNT EXECUTIVE SALES REPRESENTATIVE CBC W/PLT COUNT & AUTO Routine 05/21/2018 DIFFERENTIAL 3:56 AM ACCOUNT EXECUTIVE SALES REPRESENTATIVE BASIC METABOLIC PANEL (7) Routine 05/21/2018 3:56 AM ACCOUNT EXECUTIVE SALES REPRESENTATIVE CBC W/PLT COUNT & AUTO Routine 05/20/2018 DIFFERENTIAL 4:54 AM ACCOUNT EXECUTIVE SALES REPRESENTATIVE CBC W/PLT COUNT & AUTO Routine 05/20/2018 DIFFERENTIAL 4:54 AM ACCOUNT EXECUTIVE SALES REPRESENTATIVE BASIC METABOLIC PANEL (7) Routine 05/20/2018 4:54 AM ACCOUNT EXECUTIVE SALES REPRESENTATIVE CBC W/PLT COUNT & AUTO Routine 05/19/2018 DIFFERENTIAL 3:59 AM ACCOUNT EXECUTIVE SALES REPRESENTATIVE COMPREHENSIVE METABOLIC Routine 05/19/2018 PANEL 3:59 AM ACCOUNT EXECUTIVE SALES REPRESENTATIVE CBC W/PLT COUNT & AUTO Routine 05/19/2018 DIFFERENTIAL 3:59 AM ACCOUNT EXECUTIVE SALES REPRESENTATIVE XR ABDOMEN 1 VIEW STAT 05/18/2018 4:20 PM ACCOUNT EXECUTIVE SALES REPRESENTATIVE CBC W/PLT COUNT & AUTO Routine 05/18/2018 DIFFERENTIAL 5:23 AM ACCOUNT EXECUTIVE SALES REPRESENTATIVE COMPREHENSIVE METABOLIC Routine 05/18/2018 PANEL 5:23 AM ACCOUNT EXECUTIVE SALES REPRESENTATIVE CBC W/PLT COUNT & AUTO Routine 05/18/2018 DIFFERENTIAL 5:23 AM ACCOUNT EXECUTIVE SALES REPRESENTATIVE XR ABDOMEN 1 VIEW STAT 05/17/2018 4:40 PM ACCOUNT EXECUTIVE SALES REPRESENTATIVE CBC W/PLT COUNT & AUTO Routine 05/17/2018 DIFFERENTIAL 4:29 AM ACCOUNT EXECUTIVE SALES REPRESENTATIVE COMPREHENSIVE METABOLIC Routine 05/17/2018 PANEL 4:29 AM ACCOUNT EXECUTIVE SALES REPRESENTATIVE CBC W/PLT COUNT & AUTO Routine 05/17/2018 DIFFERENTIAL 4:29 AM ACCOUNT EXECUTIVE SALES REPRESENTATIVE URINALYSIS W/ REFLEX Routine 05/17/2018 URINE CULTURE 4:03 AM ACCOUNT EXECUTIVE SALES REPRESENTATIVE BLOOD CULTURE Routine 05/16/2018 11:46 PM ACCOUNT EXECUTIVE SALES REPRESENTATIVE BLOOD CULTURE Routine 05/16/2018 11:35 PM ACCOUNT EXECUTIVE SALES REPRESENTATIVE CBC W/PLT COUNT & AUTO Routine 05/16/2018 DIFFERENTIAL 11:34 PM ACCOUNT EXECUTIVE SALES REPRESENTATIVE LIPASE Routine 05/16/2018 11:34 PM ACCOUNT EXECUTIVE SALES REPRESENTATIVE LACTIC ACID, VENOUS Routine 05/16/2018 11:34 PM ACCOUNT EXECUTIVE SALES REPRESENTATIVE CBC W/PLT COUNT & AUTO Routine 05/16/2018 DIFFERENTIAL 11:34 PM ACCOUNT EXECUTIVE SALES REPRESENTATIVE COMPREHENSIVE METABOLIC Routine 05/16/2018 PANEL 11:34 PM ACCOUNT EXECUTIVE SALES REPRESENTATIVE after 08/25/2017 Results * CBC with platelet count + automated diff (06/02/2018 4:47 AM ACCOUNT EXECUTIVE SALES REPRESENTATIVE) Only the most recent of 16 results within the time period is included. WBC 6.0 3.5 - 10.5 K/L [facility] RBC 2.54 (L) 3.93 - 5.22 M/L [facility] Hemoglobin 7.4 (L) 11.2 - 15.7 GM/DL [facility] Hematocrit 23.5 (L) 34.1 - 44.9 % [facility] MCV 92.5 79.4 - 94.8 fL [facility] MCH 29.1 25.6 - 32.2 pg [facility] MCHC 31.5 (L) 32.2 - 35.5 GM/DL [facility] RDW 15.4 (H) 11.7 - 14.4 % [facility] Platelets 541 (H) 150 - 450 K/CU MM [facility] MPV 9.6 9.4 - 12.3 fL [facility] nRBC 0 0 - 0 /100 WBC [facility] % Neutros 57 % [facility] % Lymphs 31 % [facility] % Monos 8 % [facility] % Eos 3 % [facility] % Baso 1 % [facility] # Neutros 3.38 1.56 - 6.13 K/L [facility] # Lymphs 1.87 1.18 - 3.74 K/L [facility] # Monos 0.45 (H) 0.24 - 0.36 K/L [facility] # Eos 0.19 0.04 - 0.36 K/L [facility] # Baso 0.03 0.01 - 0.08 K/L [facility] Immature 1 0 - 1 % [facility] Granulocytes-[facility] Specimen Blood Performing Organization Address City/State/[place] [address] [facility] * Phosphorus (06/01/2018 3:51 AM ACCOUNT EXECUTIVE SALES REPRESENTATIVE) Only the most recent of 10 results within the time period is included. Phosphorus 4.2 2.3 - 4.7 mg/dL [facility] Specimen Blood Performing Organization Address City/State/Zipcode Phone Number [address] [address] [facility] * Magnesium (06/01/2018 3:51 AM ACCOUNT EXECUTIVE SALES REPRESENTATIVE) Only the most recent of 10 results within the time period is included. Magnesium 1.8 1.6 - 2.6 mg/dL [facility] Specimen Blood Performing Organization Address City/[facility]/[place] [address] [facility] * Basic Metabolic Panel (06/01/2018 3:51 AM ACCOUNT EXECUTIVE SALES REPRESENTATIVE) Only the most recent of 12 results within the time period is included. Sodium 137 136 - 145 meq/L [facility] Potassium 3.7 3.5 - 5.1 meq/L [facility] Chloride 103 98 - 107 meq/L [facility] CO2 25 22 - 29 meq/L [facility] BUN 14 7 - 21 mg/dL [facility] Creatinine 0.67 0.57 - 1.25 mg/dL [facility] Glucose 101 70 - 105 mg/dL [facility] Calcium 8.4 8.4 - 10.2 mg/dL [facility] EGFR 94Comment: ESTIMATED GFR IS mL/min/1.73 sq m [facility] NOT ACCURATE CREATININE [facility] CLEARANCE IN PREDICTING GLOMERULAR FILTRATION RATE. ESTIMATED GFR IS NOT APPLICABLE FOR DIALYSIS PATIENTS. Specimen Blood Performing Organization Address City/State/Zipcode Phone Number [facility] [address] [place] [address] [facility] * CBC (Hemogram only) (05/31/2018 3:27 PM ACCOUNT EXECUTIVE SALES REPRESENTATIVE) WBC 9.7 3.5 - 10.5 K/L [facility] RBC 2.79 (L) 3.93 - 5.22 M/L [facility] Hemoglobin 8.0 (L) 11.2 - 15.7 GM/DL [facility] Hematocrit 25.5 (L) 34.1 - 44.9 % [facility] MCV 91.4 79.4 - 94.8 fL [facility] MCH 28.7 25.6 - 32.2 pg [facility] MCHC 31.4 (L) 32.2 - 35.5 GM/DL [facility] RDW 15.2 (H) 11.7 - 14.4 % [facility] Platelets 538 (H) 150 - 450 K/CU MM [facility] MPV 9.5 9.4 - 12.3 fL [facility] nRBC 0 0 - 0 /100 WBC [facility] Specimen Blood - Central Venous Line Performing Organization Address [facility] Phone Number [address] [address] [phone] [place] [address] * Reticulocyte count (05/31/2018 4:10 AM ACCOUNT EXECUTIVE SALES REPRESENTATIVE) % Retic 3.9 (H) 0.5 - 1.7 % [facility] Specimen Blood - Central Venous Line Performing Organization Address [facility] [place] [phone] [place] [address] * POC-Glucose meter (05/30/2018 5:42 PM ACCOUNT EXECUTIVE SALES REPRESENTATIVE) Only the most recent of 31 results within the time period is included. POC-Glucose Meter 164 (H)Comment: TESTED AT 70 - 110 mg/dL [address] [id number] Specimen Blood Performing Organization Address [facility] [place] [phone] [place] [address] * Clostridium difficile [facility] Toxin (05/30/2018 2:12 PM ACCOUNT EXECUTIVE SALES REPRESENTATIVE) C. Difficle Toxin Negative Negative [facility] C. Difficile [facility] Antigen NegativeComment: No indication Negative [facility] of Clostridium difficile [facility] infection and no colonization. Discontinue enteric isolation and therapy. Specimen Stool - Stool Narrative Performed At Testing performed by [employer].For GDH, published [facility] sensitivity of the assay is 98.7% compared to cytotoxicity testing.For Toxin [facility], published sensitivity is 87.8% and specificity 99.4% compared to cytotoxicity testing. Verification of kit performance was done by the [facility] Microbiology Lab prior to clinical use. Performing Organization Address City/State/Zipcode Phone Number [address] [address] [phone] [place] [address] * Vitamin B12 and Folate (05/30/2018 1:12 PM ACCOUNT EXECUTIVE SALES REPRESENTATIVE) Vitamin B12 481 213 - 816 pg/mL [facility] Folate 14.1 >=7.0 ng/mL [facility] Specimen Blood - Central Venous Line Performing Organization Address City/[facility] Phone Number [address] [address] [facility] * Iron, TIBC, % sat. (without ferritin) (05/30/2018 1:12 PM ACCOUNT EXECUTIVE SALES REPRESENTATIVE) Iron 20.0 (L) 40.0 - 160.0 ug/dL [facility] TIBC 299 250 - 450 ug/dL [facility] Iron % Saturation 7 (L) 20 - 55 % [facility] Specimen Blood - Central Venous Line Performing Organization Address [facility] Phone Number [address] [address] [phone] [place] [address] * Hemoglobin and hematocrit (05/30/2018 1:12 PM ACCOUNT EXECUTIVE SALES REPRESENTATIVE) Hemoglobin 8.4 (L) 11.2 - 15.7 GM/DL [facility] Hematocrit 26.1 (L) 34.1 - 44.9 % [facility] Specimen Blood - Central Venous Line Performing Organization Address City/[facility]/Zipcode Phone Number [address] [address] [phone] [place] [address] * Ferritin (05/30/2018 1:12 PM ACCOUNT EXECUTIVE SALES REPRESENTATIVE) Ferritin 91 5 - 275 ng/mL [facility] Specimen Blood - Central Venous Line Performing Organization Address City/[facility]/Zipcode Phone Number [address] [address] [facility] * XR chest 1 view portable / bedside (05/28/2018 5:54 PM ACCOUNT EXECUTIVE SALES REPRESENTATIVE) Only the most recent of 3 results within the time period is included. Narrative Performed At FINAL REPORT GE [facility] Chest one view AP 05/28/2018 8:53 PM CLINICAL INDICATION: chest pain/pressure, SOB COMPARISON: 05/25/2018 IMPRESSION: There is bibasilar linear atelectasis. Cardiomediastinal contours are stable. The central pulmonary vasculature is not engorged. Support hardware is unchanged in position. Signed: Kayden Atkins MD Report Verified Date/Time:05/28/2018 20:53:18 Reading Location: [facility] Radiology Reading Room Procedure Note Interface, External Ris In - 05/28/2018 8:55 PM ACCOUNT EXECUTIVE SALES REPRESENTATIVE FINAL REPORT Chest one view AP 05/28/2018 8:53 PM CLINICAL INDICATION: chest pain/pressure, SOB COMPARISON: 05/25/2018 IMPRESSION: There is bibasilar linear atelectasis. Cardiomediastinal contours are stable. The central pulmonary vasculature is not engorged. Support hardware is unchanged in position. Signed: Kayden Atkins MD Report Verified Date/Time: 05/28/2018 20:53:18 Reading Location: [facility] Radiology Reading Room Performing Organization Address City/State/Zipcode Phone Number GE RIS * ECG 12 lead (05/28/2018 4:33 PM ACCOUNT EXECUTIVE SALES REPRESENTATIVE) Narrative Performed At Ventricular Rate 97 BPM GE MUSE Atrial Rate 97 BPM P-R Interval 138 ms QRS Duration 62 ms Q-T Interval 356 ms QTC Calculation(Bazett) 452 ms P Seguin 55 degrees R Seguin 22 degrees T Seguin 28 degrees Normal sinus rhythm Poor R wave progression Low voltage QRS Otherwise normal ECG No previous ECGs available Confirmed by Michael BAEZ MICHAEL ([id number]) on 05/29/2018 7:37:44 AM Procedure Note Interface, External Ris In - 05/29/2018 7:37 AM ACCOUNT EXECUTIVE SALES REPRESENTATIVE Ventricular Rate 97 BPM Atrial Rate 97 BPM P-R Interval 138 ms QRS Duration 62 ms Q-T Interval 356 ms QTC Calculation(Bazett) 452 ms P Seguin 55 degrees R Seguin 22 degrees T Seguin 28 degrees Normal sinus rhythm Poor R wave progression Low voltage QRS Otherwise normal ECG No previous ECGs available Confirmed by Michael BAEZ MICHAEL ([id number]) on 05/29/2018 7:37:44 AM Performing Organization Address City/State/Zipcode Phone Number [facility] * CT abdomen/pelvis with IV contrast (05/28/2018 4:13 PM ACCOUNT EXECUTIVE SALES REPRESENTATIVE) Narrative Performed At FINAL REPORT Loop CT scan of the abdomen and pelvis: CLINICAL HISTORY: Status post exploratory laparotomy 05/21/2018 with lysis of effusions. Postoperative leukocytosis and lack of bowel function. Evaluate for abscess/obstruction. Comparison exam: CT scan of the abdomen and pelvis 05/21/2018 TECHNIQUE: CT scan of the abdomen and pelvis with intravenous contrast. Dose modulation, iterative reconstruction, and/or weight based adjustment of the mA/kV was utilized to reduce the radiation dose to as low as reasonably achievable. FINDINGS: Right lower lobe atelectasis. Normal heart. Normal liver, spleen, and pancreas. Previous cholecystectomy. Small hiatus hernia. Postsurgical changes to the stomach consistent with prior gastric sleeve. Mild gaseous and fluid distention of the small bowel. No transition zone is identified to suggest a small bowel obstruction. Small locule of free intraperitoneal air consistent with the recent operative status. No mesenteric or retroperitoneal lymphadenopathy. Normal caliber aorta. Patent mesenteric arteries. Normal adrenal glands. Subcentimeter right renal hypodensity, too small to accurately characterize. Previous hysterectomy. No adnexal abnormalities. Normal bladder. No acute skeletal abnormalities. Spinal infusion catheter extends into the thoracic spine central canal. Remote postsurgical changes in the lumbar spine. Recent midline ventral abdominal wall incision with overlying surgical skin ingrid. IMPRESSION: Mild gaseous and fluid distention of the small bowel. No transition zone is identified to suggest a small bowel obstruction. Mild postoperative ileus is favored. Signed: Michael Snyder MD Report Verified Date/Time:05/28/2018 21:08:04 Reading Location: [address] Reading Room Procedure Note Interface, External Ris In - 05/28/2018 9:10 PM ACCOUNT EXECUTIVE SALES REPRESENTATIVE FINAL REPORT CT scan of the abdomen and pelvis: CLINICAL HISTORY: Status post exploratory laparotomy 05/21/2018 with lysis of effusions. Postoperative leukocytosis and lack of bowel function. Evaluate for abscess/obstruction. Comparison exam: CT scan of the abdomen and pelvis 05/21/2018 TECHNIQUE: CT scan of the abdomen and pelvis with intravenous contrast. Dose modulation, iterative reconstruction, and/or weight based adjustment of the mA/kV was utilized to reduce the radiation dose to as low as reasonably achievable. FINDINGS: Right lower lobe atelectasis. Normal heart. Normal liver, spleen, and pancreas. Previous cholecystectomy. Small hiatus hernia. Postsurgical changes to the stomach consistent with prior gastric sleeve. Mild gaseous and fluid distention of the small bowel. No transition zone is identified to suggest a small bowel obstruction. Small locule of free intraperitoneal air consistent with the recent operative status. No mesenteric or retroperitoneal lymphadenopathy. Normal caliber aorta. Patent mesenteric arteries. Normal adrenal glands. Subcentimeter right renal hypodensity, too small to accurately characterize. Previous hysterectomy. No adnexal abnormalities. Normal bladder. No acute skeletal abnormalities. Spinal infusion catheter extends into the thoracic spine central canal. Remote postsurgical changes in the lumbar spine. Recent midline ventral abdominal wall incision with overlying surgical skin ingrid. IMPRESSION: Mild gaseous and fluid distention of the small bowel. No transition zone is identified to suggest a small bowel obstruction. Mild postoperative ileus is favored. Signed: Michael Snyder MD Report Verified Date/Time: 05/28/2018 21:08:04 Reading Location: [address] Reading Room Performing Organization Address City/State/Zipcode Phone Number GE [facility] * CT abdomen/pelvis without iv contrast (05/28/2018 1:27 PM ACCOUNT EXECUTIVE SALES REPRESENTATIVE) Narrative Performed At FINAL REPORT Loop TECHNIQUE: CT of the abdomen and pelvis WITHOUT intravenous contrast and WITH oral contrast. Dose modulation, iterative reconstruction, and/or weight-based adjustment of the mA/kV was utilized to reduce the radiation dose to as low as reasonably achievable. INDICATION: Leukocytosis, bowel obstruction. COMPARISON: Radiograph from 05/18/2018. FINDINGS: ABSENCE OF INTRAVENOUS CONTRAST DECREASES SENSITIVITY FOR DETECTION OF FOCAL LESIONS AND VASCULAR PATHOLOGY. LOWER THORAX: NG tube with tip in the second portion the duodenum. HEPATOBILIARY: No focal hepatic lesions. Gallbladder is unremarkable. No biliary ductal dilatation. SPLEEN: No splenomegaly. PANCREAS: No focal masses or ductal dilatation. ADRENALS: No adrenal nodules. KIDNEYS/URETERS: No hydronephrosis, stones, or solid mass lesions. PELVIC ORGANS/BLADDER: Prior hysterectomy with a normal appearance of the ovaries. PERITONEUM/RETROPERITONEUM: No free air or fluid. LYMPH NODES: No lymphadenopathy. VESSELS: Unremarkable. GI TRACT: The bowel is diffusely dilated with a transition point in the right lower quadrant as seen on coronal image 37. The distal bowel is completely decompressed. The lower esophagus is diffusely thickened. There is been a prior gastric sleeve resection. BONES AND SOFT TISSUES: Other external device with tip in the lower thoracic spinal canal. Prior disc fusions at L4-L5 and L5-S1 with L4 and L5 laminectomies. IMPRESSION: 1.Complete small bowel obstruction with a transition in the right lower quadrant. 2.NG tube with tip in the second portion of the duodenum. 3.The diffuse thickening of the lower esophagus is indeterminate but could be due to esophagitis. Signed: Martinez Nassar MD Report Verified Date/Time:05/21/2018 16:26:06 Reading Location: [address] Body Reading Room Procedure Note Interface, External Ris In - 05/28/2018 1:28 PM ACCOUNT EXECUTIVE SALES REPRESENTATIVE FINAL REPORT TECHNIQUE: CT of the abdomen and pelvis WITHOUT intravenous contrast and WITH oral contrast. Dose modulation, iterative reconstruction, and/or weight-based adjustment of the mA/kV was utilized to reduce the radiation dose to as low as reasonably achievable. INDICATION: Leukocytosis, bowel obstruction. COMPARISON: Radiograph from 05/18/2018. FINDINGS: ABSENCE OF INTRAVENOUS CONTRAST DECREASES SENSITIVITY FOR DETECTION OF FOCAL LESIONS AND VASCULAR PATHOLOGY. LOWER THORAX: NG tube with tip in the second portion the duodenum. HEPATOBILIARY: No focal hepatic lesions. Gallbladder is unremarkable. No biliary ductal dilatation. SPLEEN: No splenomegaly. PANCREAS: No focal masses or ductal dilatation. ADRENALS: No adrenal nodules. KIDNEYS/URETERS: No hydronephrosis, stones, or solid mass lesions. PELVIC ORGANS/BLADDER: Prior hysterectomy with a normal appearance of the ovaries. PERITONEUM/RETROPERITONEUM: No free air or fluid. LYMPH NODES: No lymphadenopathy. VESSELS: Unremarkable. GI TRACT: The bowel is diffusely dilated with a transition point in the right lower quadrant as seen on coronal image 37. The distal bowel is completely decompressed. The lower esophagus is diffusely thickened. There is been a prior gastric sleeve resection. BONES AND SOFT TISSUES: Other external device with tip in the lower thoracic spinal canal. Prior disc fusions at L4-L5 and L5-S1 with L4 and L5 laminectomies. IMPRESSION: 1.Complete small bowel obstruction with a transition in the right lower quadrant. 2.NG tube with tip in the second portion of the duodenum. 3.The diffuse thickening of the lower esophagus is indeterminate but could be due to esophagitis. Signed: Martinez Nassar MD Report Verified Date/Time: 05/21/2018 16:26:06 Reading Location: [facility] B1 C013Y CT Body Reading Room Performing Organization Address City/State/Zipcode Phone Number RIS * Blood culture (05/25/2018 12:14 PM ACCOUNT EXECUTIVE SALES REPRESENTATIVE) Only the most recent of 4 results within the time period is included. Result No growth in 5 days [facility] Specimen Blood - Central Venous Line Performing Organization Address City/State/Zipcode Phone Number [place] [phone] [place] [address] [facility] * Manual Differential (05/24/2018 5:05 AM ACCOUNT EXECUTIVE SALES REPRESENTATIVE) Only the most recent of 2 results within the time period is included. % Neutros 77 % [facility] % Lymphs 13 % [facility] % Monos 7 % [facility] % Eos 1 % [facility] % Myelo 1 (H) 0 - 0 % [facility] % Atypical Lymphs 1 (H) 0 - 0 % [facility] # Neutros 11.78 (H) 1.56 - 6.13 K/ul [facility] # Lymphs 1.99 1.18 - 3.74 K/ul [facility] # Monos 1.07 (H) 0.24 - 0.36 K/uL [facility] # Eos 0.15 0.04 - 0.36 K/uL [facility] # Myelo 0.15 (H) 0.00 - 0.00 K/uL [facility] # Atypical Lymphs 0.15 (H) 0.00 - 0.00 K/uL [facility] Total Counted 100 [facility] RBC Morphology Normal [facility] Smudge Cells Present [facility] Giant Platelet Present [facility] Platelet Conc Adequate [facility] Specimen Blood - Central Venous Line Narrative Performed At Received comment: [facility] User comments: [facility] Slide comments: Performing Organization Address City/[facility]/Zipcode Phone Number [facility] [address] [place] [address] [facility] * Calcium, Ionized (05/24/2018 5:05 AM ACCOUNT EXECUTIVE SALES REPRESENTATIVE) Only the most recent of 3 results within the time period is included. Calcium, Ion 0.94 (L) 1.12 - 1.27 mmol/L [facility] pH, Blood 7.50 [facility] Specimen Blood - Central Venous Line Performing Organization Address City/[facility] Phone Number [facility] [address] [place] [address] [facility] * XR abdomen / KUB 1 view (05/23/2018 11:10 AM ACCOUNT EXECUTIVE SALES REPRESENTATIVE) Only the most recent of 3 results within the time period is included. Narrative Performed At FINAL REPORT [facility] Comparison: 05/18/2018 TECHNIQUE: Frontal image of the abdomen FINDINGS: Mildly dilated gas-filled loops of small bowel are seen, although overall degree of dilatation has decreased from before. This may represent mild ileus. Surgical ingrid project over the midline. No gross free intraperitoneal air but evaluation is limited due to technique and positioning. Tip of nasogastric tube projects in the distal stomach. Right-sided pain pump noted. Signed: Campos Rivera MD Report Verified Date/Time:05/23/2018 13:25:58 Reading Location: [address] Transitional Reading Room Procedure Note Interface, External Ris In - 05/23/2018 1:28 PM ACCOUNT EXECUTIVE SALES REPRESENTATIVE FINAL REPORT Comparison: 05/18/2018 TECHNIQUE: Frontal image of the abdomen FINDINGS: Mildly dilated gas-filled loops of small bowel are seen, although overall degree of dilatation has decreased from before. This may represent mild ileus. Surgical ingrid project over the midline. No gross free intraperitoneal air but evaluation is limited due to technique and positioning. Tip of nasogastric tube projects in the distal stomach. Right-sided pain pump noted. Signed: Campos Rivera MD Report Verified Date/Time: 05/23/2018 13:25:58 Reading Location: [address] Transitional Reading Room Performing Organization Address City/[facility] Phone Number RIS * Triglycerides (05/23/2018 5:06 AM ACCOUNT EXECUTIVE SALES REPRESENTATIVE) Triglycerides 72 mg/dL [facility] Specimen Blood Narrative Performed At TRIGLYCERIDE REFERENCE RANGE [facility] Low Risk<150 [facility] Borderline Risk 150-199 High [id number] Very High Risk >=500 Performing Organization Address City/[facility]/Zipcode Phone Number [facility] [address] [place] [address] [facility] * TRANSFUSION SERVICE REPORT - SCAN (05/22/2018 6:00 PM ACCOUNT EXECUTIVE SALES REPRESENTATIVE) Narrative Performed At * PT/aPTT (05/21/2018 7:38 AM ACCOUNT EXECUTIVE SALES REPRESENTATIVE) Protime 15.4 (H) 11.7 - 14.7 seconds [facility] INR 1.2 <=5.9 [facility] PTT 32.0 22.5 - 36.0 seconds [facility] Specimen Blood - Arm, Right Narrative Performed At RECOMMENDED COUMADIN/WARFARIN INR THERAPY RANGES [facility] STANDARD DOSE: 2.0 - 3.0 Includes: PROPHYLAXIS for venous thrombosis, [facility] systemic embolization; TREATMENT for venous thrombosis and/or pulmonary embolus. HIGH RISK: Target INR is 2.5-3.5 for patients with mechanical heart valves. Performing Organization Address City/[facility]/[place] [address] [phone] [place] [address] * Prothrombin time/INR (05/21/2018 7:38 AM ACCOUNT EXECUTIVE SALES REPRESENTATIVE) Protime 15.4 (H) 11.7 - 14.7 seconds [facility] INR 1.2 <=5.9 [facility] Specimen Blood - Arm, Right Narrative Performed At RECOMMENDED COUMADIN/WARFARIN INR THERAPY RANGES [facility] STANDARD DOSE: 2.0 - 3.0 Includes: PROPHYLAXIS for venous thrombosis, [facility] systemic embolization; TREATMENT for venous thrombosis and/or pulmonary embolus. HIGH RISK: Target INR is 2.5-3.5 for patients with mechanical heart valves. Performing Organization Address [facility] Cent[facility]ode Phone Number [place] [phone] * Type and screen, automated (05/21/2018 7:00 AM ACCOUNT EXECUTIVE SALES REPRESENTATIVE) ABO/RH AUTOMATED (BEAKER) A POSITIVE [facility] Ab Scrn NEGATIVE [facility] Specimen Blood Performing Organization Address City/[facility]/[place] [phone] * Comprehensive metabolic panel (05/19/2018 3:59 AM ACCOUNT EXECUTIVE SALES REPRESENTATIVE) Only the most recent of 4 results within the time period is included. Protein, Total 6.2 6.0 - 8.3 gm/dL [facility] Albumin 3.7 3.5 - 5.0 g/dL [facility] Alkaline Phosphatase 77 40 - 150 U/L [facility] Total Bilirubin 0.3 0.2 - 1.2 mg/dL [facility] Sodium 141 136 - 145 meq/L [facility] Potassium 3.2 (L) 3.5 - 5.1 meq/L [facility] Chloride 108 (H) 98 - 107 meq/L [facility] CO2 24 22 - 29 meq/L [facility] BUN 14 7 - 21 mg/dL [facility] Creatinine 0.90 0.57 - 1.25 mg/dL [facility] Glucose 111 (H) 70 - 105 mg/dL [facility] Calcium 9.0 8.4 - 10.2 mg/dL [facility] AST 13 5 - 34 U/L [facility] ALT 8 6 - 55 U/L [facility] EGFR 67Comment: ESTIMATED GFR IS mL/min/1.73 sq m [facility] NOT ACCURATE CREATININE [facility] CLEARANCE IN PREDICTING GLOMERULAR FILTRATION RATE. ESTIMATED GFR IS NOT APPLICABLE FOR DIALYSIS PATIENTS. Specimen Blood - Arm, Right Performing Organization Address City/State/Zipcode Phone Number [facility] [address] [place] [address] MEDICAL [facility]ENTER * Urinalysis w/Microscopic + Reflex to Culture (05/17/2018 4:03 AM ACCOUNT EXECUTIVE SALES REPRESENTATIVE) Color, UA Yellow [facility] Clarity, UA Hazy [facility] Specific [place], UA 1.049 (H) 1.001 - 1.035 [facility] pH, UA 6.0 5.0 - 8.0 [facility] Protein, UA 50 mg/dL (A) Negative [facility] Glucose, UA Negative Negative [facility] Ketones, UA 80 mg/dL (A) Negative [facility] Bilirubin, UA Negative Negative [facility] Blood, UA Negative Negative [facility] Nitrite, UA Negative Negative [facility] Leukocytes, UA Negative Negative [facility] Urobilinogen, UA 0.2 0.2 - 1.0 mg/dL [facility] RBC, UA 1 /HPF [facility] WBC, UA 7 /HPF [facility] Squam Epithel, UA 11 /HPF [facility] Specimen Source [facility] Specimen Urine - Urine, Clean Catch Performing Organization Address City/[facility] Cent[facility] Phone Number [address] * Lactic acid, venous, whole blood (05/16/2018 11:34 PM ACCOUNT EXECUTIVE SALES REPRESENTATIVE) Lactate, Venous 1.1 0.5 - 2.2 mmol/L [facility] Specimen Blood Performing Organization Address [facility] Phone Number [address] * Lipase (05/16/2018 11:34 PM ACCOUNT EXECUTIVE SALES REPRESENTATIVE) Lipase 5 (L) 8 - 78 U/L [facility] Specimen Blood Performing Organization Address City/[facility] Cent[facility] Phone Number [address] after 08/25/2017 Insurance Payer Benefit Subscriber ID Type Phone Address Plan / Group [facility] xxxxxxxxx MEDICARE D CARE MEDICARE [facility] [place] MEDICAID xxxxxxxxx Medicaid [place] Advance Directives For more information, please contact: [facility] [address] [place] [address] Date Inactivated Comments Code Status Date Activated Full Code 05/16/2018 10:23 PM This code status was determined by: Patient
--- OUTSIDE RECORDS SUMMARY | 2018-08-26 12:11 | XMS REPORT | Continuity of Care Document ---
Author Author [facility] Interface Address Unknown Phone Unavailable Problems Problem Status Onset Date Classification Date Reported Comments Source CT LUMBAR SPINE WO CONTRAST DX: RADICULO Active 06/18/2018 [facility] DX: M54.16 Active 03/25/2018 [facility] DX: RT MASS CALLBACKS Active 02/12/2018 [facility] ROUTINE SCREENING LAST MMG W/ Active 02/05/2018 [facility] Discharge Diagnosis: Acute bronchitis 04/21/2017 04/24/2017 [facility] NAUSEA/VOMITING Active 04/21/2017 [facility] UNK Active 10/02/2016 [facility] DX: 6 MONTH FOLLOWUP Active 08/30/2016 [facility] QUITA HIGGINS #[id number] FAX#982.94 Active 07/19/2015 [facility] 793.80 QUITA ALFARO PHONE#[id number] Active 09/27/2014 [facility] ICD 338.4 724.4 / CPT 22004 [id number] Active 03/28/2014 [facility] 793.80 ABNORMAL FINDING ON MAMMOGRAPHY Active 12/20/2013 [facility] V76.11 - SCREEN MAMMOGRA Active 09/27/2013 [facility] [place] 715.09 - GENERAL OSTEOAR Active 09/21/2012 [facility] [place] 721.3 Active 07/13/2012 [facility] ICD 721.3 / CPT 76701 42493 56995 Active 02/19/2012 [facility] INJECTION EPIDURAL STEROID BLOCK Active 04/03/2011 [facility] Anxiety Active Problem 04/24/2017 [facility] [place] Asthma Active Problem 04/24/2017 [facility] [place] Back pain Active Problem 04/24/2017 [facility] [place] Depression Active Problem 04/24/2017 [facility] [place] Reflux Active Problem 04/24/2017 [facility] [place] Short of breath on exertion Resolved Problem 04/24/2017 [facility] [place] cough Active Problem 05/28/2014 [facility], [facility] [place] Depression annual review Resolved Problem 01/01/2014 [facility] seizures Active Problem 05/28/2014 [facility], [facility] [place] Anxiety Resolved Problem 11/06/2012 [facility] [place] Asthma Resolved Problem 11/06/2012 [facility] [place] Back pain Resolved Problem 11/06/2012 [facility] [place] Depression annual review Resolved Problem 11/06/2012 [facility] [place] Reflux Resolved Problem 11/06/2012 [facility] [place] 724.4 Active [facility] OTH ABN AND INCONCLUSIVE FINDINGS ON DX Active [facility] ENCNTR FOR F/U EXAM AFT TRTMT FOR COND O Active [facility] RADICULOPATHY, LUMBAR REGION Active [facility] RADICULOPATHY, LUMBAR REGION Active [facility] Medications Medication Details Route Status Patient Instructions Ordering Provider Order Date Source predniSONE 50 mg oral tablet 50 mg=1 tab, PO, Daily, X 5 day, # 5 tab, 0 Refill(s) Active 04/21/2017 [facility] azithromycin 250 mg oral tablet See Instructions, Take 2 tablets by mouth the first day then 1 tablet by mouth daily on days 2-5., X 5 day, # 6 tab, 0 Refill(s) Active 04/21/2017 [facility] NS (Bolus) IV 1,000 mL, 1,000 ml/hr, Infuse Over: 1 hr, Route: IV, ONCE, Priority: STAT, Dosing Weight 109.091 kg, Start date: 04/21/17 10:52:00 [employer]HY CONTACT WORKER, Duration: 1 doses or times, Stop date: 04/21/17 10:52:00 L[employer]OGR[employer]HY CONTACT WORKER Inactive 04/21/2017 [facility] methylPREDNISolone SODium SUCCinate 125 mg, 2 mL, Route: IVP, Drug form: INJ, ONCE, Dosing Weight 109.091, kg, Priority: STAT, Start date: 04/21/17 10:06:00 LITHOGRAPHY CONTACT WORKER, Stop date: 04/21/17 10:06:00 CSTNotes: (Same as:Solu-MEDROL, A-Methapred) Inactive 04/21/2017 [facility] albuterol-ipratropium 2.5-0.5 mg inhalation solution 3 mL, Route: NEB, Drug Form: SOLN, Dosing Weight 109.091, kg, ONCE, STAT, Start date: 04/21/17 10:06:00 LITHOGRAPHY CONTACT WORKER, Stop date: 04/21/17 10:06:00 L[employer]OGRAPHY CONTACT WORKER Inactive 04/21/2017 [facility] Sodium Chloride 0.154 MEQ/ML Injectable Solution 1,000 mL, Rate: 25 ml/hr, Infuse over: 40 hr, Route: IV, Dosing Weight 104.176 kg, Total Volume: 1,000, Start date: 10/28/16 7:02:00 CDT, Duration: 30 day, Stop date: 11/27/16 7:01:00 CDT Inactive 2016 [facility] Singulair Daily, 0 Refill(s) Active 10/10/2016 [facility] Dicyclomine 20 mg, 0 Refill(s) Active 10/10/2016 [facility] omeprazole 40 mg oral delayed release capsule 40 mg=1 cap, PO, Daily, # 30 cap, 0 Refill(s) Active 10/10/2016 [facility] sertraline 50 mg oral tablet 50 mg=1 tab, PO, Daily, # 30 tab, 0 Refill(s) Active 10/10/2016 [facility] Phentermine Hydrochloride 37.5 MG Oral Tablet 37.5 mg=1 tab, PO, Daily, # 30 tab, 0 Refill(s) Active 10/10/2016 [facility] Acetaminophen 325 MG / Oxycodone Hydrochloride 10 MG Oral Tablet 2 tab, PO, Q6H, PRN for pain, 0 Refill(s) Active 10/10/2016 [facility] naloxone 1 mg/mL injectable solution IV, ONCE, 0 Refill(s) Active 10/10/2016 [facility] naloxegol 25 MG Oral Tablet [Movantik] 25 mg=1 tab, PO, QAM, 0 Refill(s) Active 10/10/2016 [facility] Furosemide 40 MG Oral Tablet 40 mg=1 tab, PO, Daily, # 30 tab, 0 Refill(s) Active 10/10/2016 [facility] baclofen 20 mg oral tablet 20 mg=1 tab, PO, TID, # 270 tab, 0 Refill(s) Active 10/10/2016 [facility] Oxycodone Hydrochloride 5 MG Oral Tablet 10 mg, Route: PO, Drug form: TAB, ONCE, Dosing Weight 90.909, kg, PRN as needed for pain, Start date: 04/15/14 13:32:00 Inactive 04/15/2014 [facility] Promethazine 6.25 mg, Route: IVPB, ONCE, Dosing Weight 90.909, kg, PRN Nausea & Vomiting, Start date: 04/15/14 12:55:00 Inactive 04/15/2014 [facility] Ondansetron 4 mg, Route: IVP, ONCE, Dosing Weight 90.909, kg, PRN Nausea & Vomiting, Start date: 04/15/14 12:55:00 Inactive 04/15/2014 [facility] Diphenhydramine 12.5 mg, Route: IVP, Drug form: INJ, Q6H, Dosing Weight 90.909, kg, PRN Itching, Start date: 04/15/14 12:55:00, Duration: 30 day, Stop date: 05/15/14 12:54:00 Inactive 04/15/2014 [facility] Naloxone 0.04 mg, Route: IVP, Q2MIN, Dosing Weight 90.909, kg, PRN Narcotic Reversal, Start date: 04/15/14 12:55:00, Duration: 8 doses or times, Stop date: Limited # of times Inactive 04/15/2014 [facility] Flumazenil 0.2 mg, Route: IVP, PRN, Dosing Weight 90.909, kg, PRN Benzodiazepine Reversal, Initial dose, Start date: 04/15/14 12:55:00, Duration: 30 day, Stop date: 05/15/14 11:54:00 Inactive 04/15/2014 [facility] Morphine 4 mg, Route: IVP, Q5Min, Dosing Weight 90.909, kg, PRN Pain Score 7-10, Start date: 04/15/14 12:55:00, Duration: 3 doses or times, Stop date: Limited # of times Inactive 04/15/2014 [facility] Meperidine 12.5 mg, Route: IVP, Q30Min, Dosing Weight 90.909, kg, PRN Other -See Comment, For shivering, Start date: 04/15/14 12:55:00, Duration: 2 doses or times, Stop date: Limited # of times Inactive 04/15/2014 [facility] Hydromorphone 0.5 mg, Route: IVP, Q5Min, Dosing Weight 90.909, kg, PRN Pain Score 7-10, Start date: 04/15/14 12:55:00, Duration: 4 doses or times, Stop date: Limited # of times Inactive 04/15/2014 [facility] Oxycodone Hydrochloride 1 MG/ML Oral Solution 5 mg, Route: NG, Drug form: LIQ, Q4H, Dosing Weight 90.909, kg, PRN Pain Score 4-6, Start date: 04/15/14 12:55:00, Duration: 30 day, Stop date: 05/15/14 12:54:00 Inactive 04/15/2014 [facility] Acetaminophen 1,000 mg, Route: IVPB, Drug form: INJ, ONCE, Dosing Weight 90.909, kg, PRN Pain Score 1-3, Start date: 04/15/14 12:55:00, Duration: 1 doses or times, Stop date: Limited # of times Inactive 04/15/2014 [facility] Oxycodone 5 mg, Route: PO, Drug form: TAB, Q4H, Dosing Weight 90.909, kg, PRN Pain Score 4-6, Start date: 04/15/14 12:55:00, Duration: 30 day, Stop date: 05/15/14 12:54:00 Inactive 04/15/2014 [facility] Fentanyl 25 microgram, Route: IVP, Q5Min, Dosing Weight 90.909, kg, PRN Pain Score 4-6, Start date: 04/15/14 12:55:00, Duration: 4 doses or times, Stop date: Limited # of times Inactive 04/15/2014 [facility] Calcium Chloride 0.0014 MEQ/ML / Potassium Chloride 0.004 MEQ/ML / Sodium Chloride 0.103 MEQ/ML / Sodium Lactate 0.028 MEQ/ML Injectable Solution 1,000 mL, Rate: 125 ml/hr, Infuse over: 8 hr, Route: IV, Dosing Weight 90.909 kg, Total Volume: 1,000, Start date: 04/15/14 12:55:00, Duration: 30 day, Stop date: 05/15/14 12:54:00 Inactive 04/15/2014 [facility] Clindamycin 600 mg, Route: IVPB, ONCE, Dosing Weight 90.909, kg, Start date: 04/15/14 10:42:00, Stop date: 04/15/14 10:42:00 Inactive 04/15/2014 [facility] Calcium Chloride 0.0014 MEQ/ML / Potassium Chloride 0.004 MEQ/ML / Sodium Chloride 0.103 MEQ/ML / Sodium Lactate 0.028 MEQ/ML Injectable Solution 1,000 mL, Rate: 25 ml/hr, Infuse over: 40 hr, Route: IV, Dosing Weight 90.909 kg, Total Volume: 1,000, Start date: 04/15/14 10:38:00, Duration: 30 day, Stop date: 05/15/14 10:37:00 Inactive 04/15/2014 [facility] gabapentin 300 MG Oral Capsule [Neurontin] 300 mg=1 cap, PO, TID, 0 Refill(s) Active 04/13/2014 [facility] Cyclobenzaprine hydrochloride 10 MG Oral Tablet [Flexeril] 10 mg=1 tab, PO, TID, 0 Refill(s) Active 04/13/2014 [facility] meloxicam 15 MG Oral Tablet [Mobic] 15 mg=1 tab, PO, Daily, 0 Refill(s) Active 04/13/2014 [facility] gabapentin 300 mg, PO, BID, 0 Refill(s) Active 04/13/2014 [facility] Ondansetron 4 MG Oral Tablet [Zofran] 4 mg=1 tab, PO, Q8H, as needed for nausea/vomiting, 0 Refill(s) Active 04/13/2014 [facility] Clonazepam 0.5 mg, PO, 0 Refill(s) Active 04/13/2014 [facility] Hydrochlorothiazide 12.5 mg, PO, 0 Refill(s) Active 04/13/2014 [facility] cetirizine hydrochloride 10 MG Oral Tablet [Zyrtec] 10 mg=1 tab, PO, Daily, 0 Refill(s) Active 04/13/2014 [facility] quetiapine 25 MG Oral Tablet [Seroquel] 25 mg=1 tab, PO, TID, 0 Refill(s) Active 04/13/2014 [facility] valsartan 160 MG Oral Tablet [Diovan] 160 mg=1 tab, PO, Daily, 0 Refill(s) Active 04/13/2014 [facility] sertraline 100 mg oral tablet 100 mg=1 tab, PO, Daily, 0 Refill(s) Active 04/13/2014 [facility] flumazenil 0.2 mg, 2 mL, Route: IVP, Drug form: INJ, PRN, Dosing Weight 90.909, kg, PRN Benzodiazepine Reversal, Initial dose, Start date: 07/21/12 8:30:00, Duration: 30 day, Stop date: 08/20/12 8:29:00 IVP No Longer Active [facility] 07/21/2012 [facility] naloxone 0.04 mg, 0.04 mL, Route: IVP, Drug form: INJ, Q2MIN, Dosing Weight 90.909, kg, PRN Narcotic Reversal, Start date: 07/21/12 8:30:00, Duration: 8 doses or times, Stop date: Limited # of times IVP No Longer Active [facility] 07/21/2012 [facility] diphenhydrAMINE 12.5 mg, 0.25 mL, Route: IVP, Drug form: INJ, PRN, Dosing Weight 90.909, kg, PRN Itching, Start date: 07/21/12 8:30:00, Duration: 30 day, Stop date: 08/20/12 8:29:00 IVP No Longer Active [facility] 07/21/2012 [facility] ondansetron 4 mg, 2 mL, Route: IVP, Drug form: INJ, ONCE, Dosing Weight 90.909, kg, PRN Nausea & Vomiting, Start date: 07/21/12 8:30:00 IVP No Longer Active [facility] 07/21/2012 [facility] dexamethasone 4 mg, 1 mL, Route: IVP, Drug form: INJ, ONCE, Dosing Weight 90.909, kg, PRN Nausea & Vomiting, Start date: 07/21/12 8:30:00 IVP No Longer Active [facility] 07/21/2012 [facility] labetalol 5 mg, 1 mL, Route: IVP, Drug form: INJ, Q5Min, Dosing Weight 90.909, kg, PRN Elevated BP, Start date: 07/21/12 8:30:00, Duration: 5 doses or times, Stop date: Limited # of times IVP No Longer Active [facility] 07/21/2012 [facility] niCARdipine 0.25 mg, 0.1 mL, Route: IVP, Drug form: INJ, Q5Min, Dosing Weight 90.909, kg, PRN Elevated BP, Start date: 07/21/12 8:30:00, Duration: 4 doses or times, Stop date: Limited # of times IVP No Longer Active [facility] 07/21/2012 [facility] metoprolol 1 mg, 1 mL, Route: IVP, Drug form: INJ, Q5Min, Dosing Weight 90.909, kg, PRN Elevated BP, Start date: 07/21/12 8:30:00, Duration: 5 doses or times, Stop date: Limited # of times IVP No Longer Active [facility] 07/21/2012 [facility] hydrALAZINE 5 mg, 0.25 mL, Route: IVP, Drug form: INJ, Q5Min, Dosing Weight 90.909, kg, PRN Elevated BP, Start date: 07/21/12 8:30:00, Duration: 4 doses or times, Stop date: Limited # of times IVP No Longer Active [facility] 07/21/2012 [facility] morphine Sulfate 2 mg, 1 mL, Route: IVP, Drug form: INJ, Q5Min, Dosing Weight 90.909, kg, PRN Pain Score 4-6, Start date: 07/21/12 8:30:00, Duration: 8 doses or times, Stop date: Limited # of times IVP No Longer Active [facility] 07/21/2012 [facility] meperidine 12.5 mg, 0.25 mL, Route: IVP, Drug form: INJ, Q30Min, Dosing Weight 90.909, kg, PRN Other -See Comment, For shivering, Start date: 07/21/12 8:30:00, Duration: 2 doses or times, Stop date: Limited # of times IVP No Longer Active [facility] 07/21/2012 [facility] hydromorphone 0.5 mg, 0.5 mL, Route: IVP, Drug form: SOLN, Q5Min, Dosing Weight 90.909, kg, PRN Pain Score 4-6, Start date: 07/21/12 8:30:00, Duration: 5 doses or times, Stop date: Limited # of times IVP No Longer Active [facility] 07/21/2012 [facility] fentanyl 25 microgram, 0.5 mL, Route: IVP, Drug form: INJ, Q5Min, Dosing Weight 90.909, kg, PRN Pain Score 4-6, Start date: 07/21/12 8:30:00, Duration: 4 doses or times, Stop date: Limited # of times IVP No Longer Active [facility] 07/21/2012 [facility] Lactated Ringers Injection IV 1,000 mL 1,000 mL, Rate: 25 ml/hr, Infuse over: 40 hr, Route: IV, kg, Total Volume: 1,000, Start date: 07/21/12 6:38:00, Duration: 30 day, Stop date: 08/20/12 6:37:00 IV No Longer Active [facility] 07/21/2012 [facility] morphine 15 mg oral capsule 15 mg, 1 cap, PO, BID, PRN, Pain, Substitution Allowed, CAP PO Active 07/20/2012 [facility] tizanidine 4 mg oral tablet 8 mg, 2 tab, PO, TID, 180 tab, Substitution Allowed, TAB PO Active 07/20/2012 [facility] flumazenil 0.2 mg, 2 mL, Route: IVP, Drug form: INJ, PRN, Dosing Weight 104.545, kg, PRN Benzodiazepine Reversal, Initial dose, Start date: 02/26/12 8:51:00, Duration: 5 doses or times, Stop date: Limited # of times IVP No Longer Active [facility] 02/26/2012 [facility] naloxone 0.04 mg, 0.1 mL, Route: IVP, Drug form: INJ, Q2MIN, Dosing Weight 104.545, kg, PRN Narcotic Reversal, Start date: 02/26/12 8:51:00, Duration: 8 doses or times, Stop date: Limited # of times IVP No Longer Active [facility] 02/26/2012 [facility] fentanyl 25 microgram, Route: IVP, Q5Min, Dosing Weight 104.545, kg, PRN Pain Score 4-6, Start date: 02/26/12 8:51:00, Duration: 4 doses or times, Stop date: Limited # of times IVP No Longer Active [facility] 02/26/2012 [facility] morphine Sulfate 2 mg, 1 mL, Route: IVP, Drug form: INJ, Q5Min, Dosing Weight 104.545, kg, PRN Pain Score 4-6, Start date: 02/26/12 8:51:00, Duration: 8 doses or times, Stop date: Limited # of times IVP No Longer Active [facility] 02/26/2012 [facility] hydromorphone 0.5 mg, 0.5 mL, Route: IVP, Drug form: SOLN, Q5Min, Dosing Weight 104.545, kg, PRN Pain Score 4-6, Start date: 02/26/12 8:51:00, Duration: 5 doses or times, Stop date: Limited # of times IVP No Longer Active [facility] 02/26/2012 [facility] acetaminophen-hydrocodone 325 mg-5 mg oral tablet 2 tab, Route: PO, Drug Form: TAB, Dosing Weight 104.545, kg, Q4H, PRN Pain Score 4-6, Start date: 02/26/12 8:51:00, Duration: 30 day, Stop date: 03/27/12 8:50:00 PO No Longer Active [facility] 02/26/2012 [facility] ondansetron 4 mg, Route: IVP, ONCE, Dosing Weight 104.545, kg, PRN Nausea & Vomiting, Start date: 02/26/12 8:51:00 IVP No Longer Active [facility] 02/26/2012 [facility] Lactated Ringers Injection IV 1,000 mL 1,000 mL, Rate: 25 ml/hr, Infuse over: 40 hr, Route: IV, kg, Total Volume: 1,000, Start date: 02/26/12 8:12:00, Duration: 30 day, Stop date: 03/27/12 8:11:00 IV No Longer Active [facility] 02/26/2012 [facility] flumazenil 0.2 mg, 2 mL, Route: IVP, Drug form: INJ, PRN, PRN Benzodiazepine Reversal, Initial dose, Start date: 01/13/12 8:37:00, Duration: 30 day, Stop date: 02/12/12 8:36:00 IVP No Longer Active [facility] 01/13/2012 [facility] acetaminophen-hydrocodone 325 mg-5 mg oral tablet 1 tab, Route: PO, Drug Form: TAB, Q4H, PRN Pain Score 1-3, Start date: 01/13/12 8:37:00, Duration: 30 day, Stop date: 02/12/12 8:36:00 PO No Longer Active [facility] 01/13/2012 [facility] ondansetron 4 mg, 2 mL, Route: IVP, Drug form: INJ, ONCE, PRN Nausea & Vomiting, Start date: 01/13/12 8:37:00 IVP No Longer Active [facility] 01/13/2012 [facility] naloxone 0.04 mg, 0.04 mL, Route: IVP, Drug form: INJ, Q2MIN, PRN Narcotic Reversal, Start date: 01/13/12 8:37:00, Duration: 8 doses or times, Stop date: Limited # of times IVP No Longer Active [facility] 01/13/2012 [facility] hydromorphone 0.5 mg, 0.25 mL, Route: IVP, Drug form: INJ, Q5Min, PRN Pain Score 4-6, Start date: 01/13/12 8:37:00, Duration: 5 doses or times, Stop date: Limited # of times IVP No Longer Active [facility] 01/13/2012 [facility] fentanyl 25 microgram, 0.5 mL, Route: IVP, Drug form: INJ, Q5Min, PRN Pain Score 4-6, Start date: 01/13/12 8:37:00, Duration: 4 doses or times, Stop date: Limited # of times IVP No Longer Active [facility] 01/13/2012 [facility] Lactated Ringers Injection IV 1,000 mL 1,000 mL, Rate: 25 ml/hr, Infuse over: 40 hr, Route: IV, Dosing Weight 104.545 kg, Total Volume: 1,000, Start date: 01/13/12 6:53:00, Duration: 30 day, Stop date: 02/12/12 6:52:00 IV No Longer Active [facility] 01/13/2012 [facility] multivitamin with minerals Multiple Vitamins with Zinc oral capsule 1 cap, PO, Daily, 60 cap, Substitution Allowed, Soft Stop, CAP PO Active 01/07/2012 [facility] Premarin 0.625 mg oral tablet 0.625 mg, 1 tab, PO, Daily, 30 tab, Substitution Allowed, TAB PO Active 01/07/2012 [facility] meloxicam 15 mg oral tablet 15 mg, 1 tab, PO, Daily, 90 tab, Substitution Allowed, TAB PO Active 01/07/2012 [facility] Epitol 200 mg oral tablet 400 mg, 2 tab, PO, BID, 120 tab, Substitution Allowed, TAB PO Active 01/07/2012 [facility] Xopenex HFA 45 mcg/inh inhalation aerosol with adapter 2 puff, INHALATION, Q4H, PRN, as needed for wheezing, Substitution Allowed, Soft Stop INHALATION Active 01/07/2012 [facility] Benadryl 25 mg, Route: IVP, ONCE, PRN Itching, Start date: 06/26/11 11:02:00 IVP No Longer Active [facility] 06/26/2011 [facility] Ventolin HFA INHALATION, Substitution Allowed, Maintenance INHALATION Active 06/26/2011 [facility] lidocaine 1% 0.5 mL, Route: SUB-Q, Drug Form: INJ, ONCALL, Start date: 06/25/11 15:00:00, Duration: 1 doses or times SUB-Q No Longer Active [facility] 06/25/2011 [facility] Lactated Ringers Injection IV 1,000 mL 1,000 mL, Rate: 25 ml/hr, Infuse over: 40 hr, Route: IV, Total Volume: 1,000, Start date: 06/25/11 14:44:00, Duration: 30 day, Stop date: 07/25/11 14:43:00 IV No Longer Active [facility] 06/25/2011 [facility] ondansetron 4 mg, 2 mL, Route: IVP, Drug form: INJ, ONCE, PRN Nausea & Vomiting, Start date: 04/10/11 8:37:00 IVP No Longer Active [facility] 04/10/2011 [facility] flumazenil 0.2 mg, 2 mL, Route: IVP, Drug form: INJ, PRN, PRN Other -See Comment, Initial dose, Start date: 04/10/11 8:37:00, Duration: 30 day, Stop date: 05/10/11 7:36:00 IVP No Longer Active [facility] 04/10/2011 [facility] naloxone 0.04 mg, 0.1 mL, Route: IVP, Drug form: INJ, Q2MIN, PRN Narcotic Reversal, Start date: 04/10/11 8:37:00, Duration: 8 doses or times, Stop date: Limited # of times IVP No Longer Active [facility] 04/10/2011 [facility] meperidine 12.5 mg, 0.25 mL, Route: IVP, Drug form: INJ, Q30Min, PRN Other -See Comment, For shivering, Start date: 04/10/11 8:37:00, Duration: 2 doses or times, Stop date: Limited # of times IVP No Longer Active [facility] 04/10/2011 [facility] hydromorphone 0.5 mg, 0.5 mL, Route: IVP, Drug form: SOLN, Q5Min, PRN Pain Score 4-6, Start date: 04/10/11 8:37:00, Duration: 5 doses or times, Stop date: Limited # of times IVP No Longer Active [facility] 04/10/2011 [facility] fentanyl 25 microgram, 0.5 mL, Route: IVP, Drug form: INJ, Q5Min, PRN Pain Score 4-6, Start date: 04/10/11 8:37:00, Duration: 4 doses or times, Stop date: Limited # of times IVP No Longer Active [facility] 04/10/2011 [facility] acetaminophen-hydrocodone 325 mg-5 mg oral tablet 2 tab, Route: PO, Drug Form: TAB, Q4H, PRN Pain Score 4-6, Start date: 04/10/11 8:37:00, Duration: 30 day, Stop date: 05/10/11 8:36:00 PO No Longer Active [facility] 04/10/2011 [facility] lidocaine 1% 0.5 mL, Route: SUB-Q, Drug Form: INJ, ONCALL, Start date: 04/10/11 8:00:00, Duration: 1 doses or times SUB-Q No Longer Active [facility] 04/10/2011 [facility] Lactated Ringers Injection IV 1,000 mL 1,000 mL, Rate: 25 ml/hr, Infuse over: 40 hr, Route: IV, Total Volume: 1,000, Start date: 04/10/11 7:33:00, Duration: 30 day, Stop date: 05/10/11 7:32:00 IV No Longer Active [facility] 04/10/2011 [facility] clindamycin 150 mg oral capsule 1 cap, PO, Q6H, 40 cap, Substitution Allowed, CAP PO Active 04/09/2011 [facility] Erythrocin Stearate Filmtab 250 mg oral tablet 1 tab, PO, Q8H, 40 tab, Substitution Allowed, TAB PO Active 04/09/2011 [facility] Nexium 40 mg oral delayed release capsule 1 cap, PO, Daily, 30 cap, Substitution Allowed PO Active 04/09/2011 [facility] Taylors 10/325 oral tablet 1 tab, PO, BID, PRN, 24 tab, for pain, Substitution Allowed, Maintenance PO Active 04/09/2011 [facility] Allergies, Adverse Reactions, Alerts Substance Category Reaction Severity Reaction type Status Date Reported Comments Source aspirin Assertion Drug allergy Active [facility] Bactrim Assertion Drug allergy Active [facility] Latex Assertion Blisters Drug allergy Active [facility] penicillin Assertion Drug allergy Active [facility] sulfa drugs Assertion Drug allergy Active [facility] lovastatin Assertion Drug allergy Active [facility] methadone Assertion Drug allergy Active [facility] Immunizations Immunization Date Given Site Status Last Updated Comments Source Results Order Name Results Value Reference Range Date Interpretation Comments Source Spine lumbar wo contrast CT Spine lumbar wo contrast CT Patient Name: CHAPINCITO ALVAREZ : 1970; Age: 47 years y/o Female MR: [id number] Study: Spine lumbar wo contrast CT 06/24/2018 10:14 AM LITHOGRAPHY CONTACT WORKER Ordering Physician: Antonio Torres MD Clinical Indication: - M54.16 Radiculopathy, lumbar region; Comparison: 03/30/2018 TECHNIQUE: Sequential trans-axial images were obtained with a multi-detector helical CT. Coronal and sagittal reconstructions were obtained. CT Radiation Dose DLP 436 mGy-cm FINDINGS: The alignment is maintained. Again noted are L4-S1 anterior and posterior fusion changes. There is solid anterior and posterior osseous fusion. An anterior vertebral body screw is noted at L4 level. The alignment is maintained across fusion. Epidural spinal stimulator leads enter the canal at T11-T12 level, tips not included on the CT. The paravertebral soft tissues are unremarkable. L5-S1: Posterior decompression. Posterolateral and anterior osseous fusion. No canal or foraminal stenosis. L4-L5: Anterior and posterior osseous fusion and posterior decompression. No recurrent stenosis. L3-L4: Small diffuse disc bulge and mild facet arthrosis. No stenosis. L2-L3, L1-L2 and T12-L1: Unremarkable. Partially visualized are partial gastrectomy and cholecystectomy changes. If there is further concern, CT myelogram or MRI of the lumbar spine may be performed for complete assessment. IMPRESSION: Stable postsurgical changes at L4-S1 levels. No recurrent stenosis. No stenosis at the other lumbar levels. MOIRA: JAMILAH 06/24/2018 - - Read by: Mitzy Rayap Dictated Date/time: 06/25/18 10:40 Electronically Signed by: Mitzy Ray 06/25/18 10:45 FINAL REPORT [facility] [facility] Sp[facility] lumbar wo contrast CT Spine lumbar wo contrast CT Patient Name: CHAPINCITO ALVAREZ : 1970; Age: 47 years Female MR: [id number] Study: Spine lumbar wo contrast CT 03/30/2018 [...] Srini Abad MD 03/30/18 13:24 FINAL REPORT [facility] Breast Complete Jorge US Breast Complete Jorge US COMPLETE ULTRASOUND OF BOTH BREASTS AND AXILLA: 02/19/2018 CLINICAL: /Nodule. COMPARISON:Comparison is made to exams dated: 02/19/2018 mammogram, 02/09/2018 mammogram, 10/21/2016 ultrasound, 07/31/2015 ultrasound, and 10/20/2014 ultrasound - [facility]. TECHNIQUE: Color flow and real-time ultrasound [...] is recommended.(02/20/2019) This exam was interpreted at [id number] for [facility] [place]. Paula Felipe M.D. ap/penrad:02/19/2018 14:16:26 Repair Weaver(s): Georgia Cassidy [facility] letter sent: BI-RADS 1/2 Ultrasound BI-RADS: 2 Benign 02/19/2018 - - Read by: Paula Felipe MD Dictated Date/time: 09/06/18 14:16 Electronically Signed by: Paula Felipe MD 02/19/18 14:16 FINAL REPORT [facility] Breast Mammo Diag UNI incl CAD CA Breast Mammo Diag UNI incl CAD MA UNILATERAL RIGHT DIGITAL DIAGNOSTIC MAMMOGRAM WITH CAD: 02/19/2018 CLINICAL: /Callback. Current study was evaluated with a Computer Aided Detection (CAD) system. COMPARISON:Comparison is made to exams dated: 02/09/2018 mammogram, 10/21/2016 mammogram, 10/20/2014 mammogram, 12/30/2013 mammogram - [facility], and 11/04/2012 mammogram - [facility]. TECHNIQUE: Mammographic views were obtained using digital acquisition. Wynlink Version 1.3 was utilized for computer aided [...] is recommended. This exam was interpreted at [id number] for [facility]. SUMMARY: Ultrasound will be performed at this time; please see dedicated separate report. Paula Felipe M.D. ap/penrad:02/19/2018 12:10:40 Repair Weaver(s): Aisha Beverly, [facility] Mammogram BI-RADS: 0 Indeterminate 02/19/2018 - - Read by: Paula Felipe MD Dictated Date/time: 02/19/18 12:10 Electronically Signed by: Paula Felipe MD 02/19/18 12:10 FINAL REPORT [facility] Breast Mammo Scrn JORGE w arvind incl CAD CA Breast Mammo Scrn JORGE w arvind incl CAD MA BILATERAL DIGITAL SCREENING MAMMOGRAM 3D/2D WITH CAD: 02/09/2018 CLINICAL: /Routine. Current study was evaluated with a Computer Aided Detection (CAD) system. COMPARISON:Comparison is made to exams dated: 10/21/2016 mammogram, 10/20/2014 mammogram, 12/30/2013 mammogram - [facility], 11/04/2012 mammogram - [facility], and 03/23/2009 mammogram - [facility]. TECHNIQUE: Digital Breast Tomosynthesis was performed and utilized for Interpretation. VirtualScopicsa Version 1.3 was utilized for computer aided [...] lateral views). This exam was interpreted at [id number] for [facility]. Heather tabares/ja:02/10/2018 08:47:34 Repair Weaver(s): Sissy Leonardo, [facility] letter sent: BI-RADS 0 Mammogram BI-RADS: 0 Indeterminate 02/09/2018 - - Read by: Heather Cardoso MD Dictated Date/time: 02/10/18 08:47 Electronically Signed by: Heather Cardoso MD 02/10/18 08:47 FINAL REPORT [facility] CARDIAC ENZYMES CK MB null 0.5 - 3.6 04/21/2017 [facility] CARDIAC ENZYMES Troponin-I null 0.00 - 0.40 04/21/2017 [facility] CARDIAC ENZYMES CK MB Index null 0.0 - 2.5 04/21/2017 [facility] CARDIAC ENZYMES Total CK 57 unit/L 12 - 191 04/21/2017 [facility] CHEM PANEL eGFR 92 mL/min/1.73m2 04/21/2017 [...] should be multiplied by the estimated BMI. [facility] CHEM PANEL Glucose Lvl 99 mg/dL 70 - 99 04/21/2017 [facility] CHEM PANEL BUN 13 mg/dL 7 - 22 04/21/2017 [facility] CHEM PANEL Creatinine Lvl 0.78 mg/dL 0.50 - 1.40 04/21/2017 [facility] CHEM PANEL Albumin Lvl 3.8 g/dL 3.5 - 5.0 04/21/2017 [facility] CHEM PANEL Total Protein 8.2 g/dL 6.4 - 8.4 04/21/2017 [facility] CHEM PANEL Potassium Lvl 3.8 meq/L 3.5 - 5.1 04/21/2017 [facility] CHEM PANEL ALT 21 unit/L 0 - 65 04/21/2017 [facility] CHEM PANEL Sodium Lvl 133 meq/L 135 - 145 04/21/2017 [facility] CHEM PANEL Chloride Lvl 94 meq/L 95 - 109 04/21/2017 [facility] CHEM PANEL CO2 31 meq/L 24 - 32 04/21/2017 [facility] CHEM PANEL Calcium Lvl 9.2 mg/dL 8.5 - 10.5 04/21/2017 [facility] CHEM PANEL AST 19 unit/L 0 - 37 04/21/2017 [facility] CHEM PANEL Alk Phos 158 unit/L 39 - 136 04/21/2017 [facility] CHEM PANEL Bili Total 0.7 mg/dL 0.2 - 1.3 04/21/2017 [facility] CHEM PANEL Globulin 4.4 g/dL 2.7 - 4.2 04/21/2017 [facility] CHEM PANEL A/G Ratio 0.9 0.7 - 1.6 04/21/2017 [facility] CHEM PANEL B/C Ratio 17 6 - 25 04/21/2017 [facility] CHEM PANEL AGAP 11.8 meq/L 10.0 - 20.0 04/21/2017 [facility] ENDOCRINOLOGY hCG Tot null 04/21/2017 [facility] HEMATOLOGY Monocytes # 0.7 K/CMM 0.0 - 0.8 04/21/2017 [facility] HEMATOLOGY Eosinophils # 0.2 K/CMM 0.0 - 0.5 04/21/2017 [facility] HEMATOLOGY Segs-Bands # 7.4 K/CMM 1.5 - 8.1 04/21/2017 [facility] HEMATOLOGY Lymphocytes # 1.1 K/CMM 1.0 - 5.5 04/21/2017 [facility] Basophils 0.5 % 0.0 - 1.0 04/21/2017 [facility] Eosinophils 1.8 % 0.0 - 4.0 04/21/2017 [facility] Monocytes 7.5 % 2.0 - 12.0 04/21/2017 [facility] Segs 79.0 % 45.0 - 75.0 04/21/2017 [facility] Lymphocytes 11.2 % 20.0 - 40.0 04/21/2017 [facility] MPV 8.7 fL 7.4 - 10.4 04/21/2017 [facility] Platelet 374 K/CMM 133 - 450 04/21/2017 [facility] MCHC 33.5 g/dL 32.0 - 36.0 04/21/2017 [facility] Hct 36.5 % 36.0 - 48.0 04/21/2017 [facility] MCH 29.1 pg 27.0 - 31.0 04/21/2017 [facility] MCV 87.0 fL 80.0 - 98.0 04/21/2017 [facility] Hgb 12.2 g/dL 12.0 - 16.0 04/21/2017 [facility] RDW 14.1 % 11.5 - 14.5 04/21/2017 [facility] RBC 4.20 M/CMM 4.20 - 5.40 04/21/2017 [facility] WBC 9.4 K/CMM 3.7 - 10.4 04/21/2017 [facility] Chest 1view DX Chest 1view DX Clinical Indication: - chest pain; Comparison: None FINDINGS: AP chest radiographs shows normal lung volumes without interstitial or airspace opacities, pleural effusions or pneumothorax. The heart size and pulmonary vasculature are normal. The trachea is midline. There are no clinically significant osseous abnormalities noted. IMPRESSION: No chest radiographic evidence of acute cardiopulmonary disease. SL: [id number] 04/21/2017 - - Read by: Clifton Ramos MD Dictated Date/time: 04/21/17 10:20 Electronically Signed by: Clifton Ramos MD 04/21/17 10:20 FINAL REPORT [facility] Breast Complete Uni US Breast Complete Uni US - BREAST COMPLETE UNI US/R ULTRASOUND OF RIGHT BREAST AND RIGHT AXILLA: 10/21/2016 CLINICAL: Right breast probably benign Mass. Comparison is made to exams dated: 10/21/2016 mammogram, 07/31/2015 ultrasound, 10/20/2014 ultrasound, 12/30/2013 ultrasound, 10/20/2014 mammogram and 12/30/2013 mammogram - [facility]. Color flow and real-time ultrasound of [...] results were reviewed with the patient. Heather Cardoso M.D. jt/:10/21/2016 11:22:36 Repair Weaver: Georgia Cassidy, [facility] This exam was dictated and interpreted by [id number] for [facility]. letter sent: Normal exam Ultrasound BI-RADS: 2 Benign 10/21/2016 - - Read by: Heather Cardoso MD Dictated Date/time: 10/21/16 11:22 Electronically Signed by: Heather Cardoso MD 10/21/16 11:22 FINAL REPORT [facility] Breast Mammo Diag JORGE incl CAD MA Breast Mammo Diag JORGE incl CAD MA - BREAST MAMMO DIAG JORGE INCL CAD MA BILATERAL DIGITAL DIAGNOSTIC MAMMOGRAM WITH CAD: 10/21/2016 CLINICAL: Probably benign right breast mass follow up. Current study was evaluated with a Computer Aided Detection (CAD) system. Comparison is made to exams dated: 10/20/2014 mammogram, 12/30/2013 mammogram - [facility], 11/04/2012 mammogram - [facility], 03/23/2009 mammogram - [facility], 07/31/2015 ultrasound and 10/20/2014 ultrasound - [facility]. The tissue of both breasts is [...] also reevaluate prior probably benign findings. Heather tabares/penbaltazar:10/21/2016 11:20:24 Repair Weaver: Aisha Beverly, [facility] This exam was dictated and interpreted by [id number] for [facility]. Mammogram BI-RADS: 0 Indeterminate 10/21/2016 - - Read by: Heather Cardoso MD Dictated Date/time: 10/21/16 11:20 Electronically Signed by: Heather Cardoso MD 10/21/16 11:20 FINAL REPORT [facility] ELECTROLYTES Sodium Lvl 139 meq/L 135 - 145 10/10/2016 [facility] ELECTROLYTES Chloride Lvl 102 meq/L 95 - 109 10/10/2016 [facility] ELECTROLYTES CO2 26 meq/L 24 - 32 10/10/2016 [facility] ELECTROLYTES Potassium Lvl 3.5 meq/L 3.5 - 5.1 10/10/2016 [facility] ELECTROLYTES AGAP 14.5 meq/L 10.0 - 20.0 10/10/2016 [facility] Spine lumbar series DX Spine lumbar series DX Patient Name: CHAPINCITO ALVAREZ : 1970; Age: 45 years Female MR: [id number] Study: Spine lumbar series DX 06/25/2016 11:37 AM LITHOGRAPHY CONTACT WORKER CLINICAL INDICATION: M54.16 Radiculopathy, lumbar region, evaluate [...] previous lumbar spine radiographs on 05/25/2014. : [id number] 06/25/2016 - - Read by: Toy Cisneros MD Dictated Date/time: 06/25/16 14:14 Electronically Signed by: Toy Cisneros MD 06/25/16 14:17 FINAL REPORT [facility] Pelvis AP DX Pelvis AP DX Patient Name: CHAPINCITO ALVAREZ : 1970; Age: 45 years Female MR: [id number] Study: Pelvis AP DX 06/25/2016 11:36 AM LITHOGRAPHY CONTACT WORKER CLINICAL INDICATION: M54.16 Radiculopathy, lumbar region, evaluate for SCS implant/battery placement COMPARISON: None FINDINGS: Views and laterality: AP pelvis No displaced fracture or dislocation. Mild degenerative changes of the bilateral hips and bilateral sacroiliac joints. Moderate amount of stool within the colon. Spinal stimulator device noted. IMPRESSION: No acute bony abnormalities. SL: [id number] 06/25/2016 - - Read by: Toy Cisneros MD Dictated Date/time: 06/25/16 14:13 Electronically Signed by: Toy Cisneros MD 06/25/16 14:14 FINAL REPORT [facility] Abdomen/Pelvis w IV contrast CT Abdomen/Pelvis w IV contrast CT EXAM: CT ABDOMEN AND PELVIS WITH CONTRAST DATE:05/31/2016 12:28 PM LITHOGRAPHY CONTACT WORKER . ADDITIONAL DATA: None COMPARISON: None Dose: [...] Clifford Benavides MD 05/31/16 16:08 FINAL REPORT [facility] [place] Breast Complete Jorge US Breast Complete Jorge US - BREAST COMPLETE JORGE US ULTRASOUND OF BOTH BREASTS AND BOTH AXILLA: 07/31/2015 CLINICAL: Probably benign finding - follow up right breast mass. Comparison is made to exams dated: 10/20/2014 ultrasound, 10/20/2014 mammogram, 12/30/2013 ultrasound, 12/30/2013 mammogram - [facility] and 11/04/2012 mammogram - [facility]. Color flow and real-time ultrasound of both [...] mammogram in October 2015. Heather tabares/:07/31/2015 13:38:50 Repair Weaver: Georgia Cassidy, [facility] This exam was dictated and interpreted by [id number] for [facility]. letter sent: Followup Ultrasound BI-RADS: 3 Probably benign 07/31/2015 - - Read by: Heather Cardoso MD Dictated Date/time: 07/31/15 13:38 Electronically Signed by: Heather Cardoso MD 07/31/15 13:38 FINAL REPORT [facility] Breast Complete Jorge US Breast Complete Jorge US - BREAST COMPLETE JORGE US ULTRASOUND OF BOTH BREASTS AND BOTH AXILLA: 10/20/2014 CLINICAL: Pain. Comparison is made to exams dated: 10/20/2014 mammogram, 12/30/2013 ultrasound, 12/30/2013 mammogram - [facility], 11/04/2012 mammogram - [facility] and 03/23/2009 mammogram - [facility]. Color flow and real-time ultrasound of [...] months is recommended to demonstrate stability. Heather meekst/:10/20/2014 14:04:51 Repair Weaver: Georgia Cassidy, [facility] This exam was dictated and interpreted by [id number] for [facility]. letter sent: Followup Ultrasound BI-RADS: 3 Probably benign 10/20/2014 - - Read by: Heather Cardoso MD Dictated Date/time: 10/20/14 14:04 Electronically Signed by: Heather Cardoso MD 10/20/14 14:04 FINAL REPORT [facility] Digital Mammo DX Jorge MA Digital Mammo DX Jorge MA - DIGITAL MAMMO DX JORGE MA BILATERAL DIGITAL DIAGNOSTIC MAMMOGRAM WITH CAD: 10/20/2014 CLINICAL: Pain. Current study was evaluated with a Computer Aided Detection (CAD) system. Comparison is made to exams dated: 12/30/2013 mammogram - [facility], 11/04/2012 mammogram - [facility], 03/23/2009 mammogram - [facility] and 12/30/2013 ultrasound - [facility]. The tissue of both breasts is [...] also reevaluate prior probably benign findings. Heather tabares/penrad:10/20/2014 14:02:01 Repair Weaver: Vivienne Linda, [facility] This exam was dictated and interpreted by [id number] for [facility]. Mammogram BI-RADS: 0 Indeterminate 10/20/2014 - - Read by: Heather Cardoso MD Dictated Date/time: 10/20/14 14:02 Electronically Signed by: Heather Cardoso MD 10/20/14 14:02 FINAL REPORT [facility] Spine thoracic 3 views DX Spine thoracic 3 views DX Thoracic spine, 3 view: Exam reason: See Clinic [id number] Thoracic or Lumbosacral Neuritis or Radiculitis, Unspecified [...] by: Mian Esparza MD Dictated Date/time: 05/25/14 16:35 Electronically Signed by: Mian Esparza MD 05/25/14 16:37 FINAL REPORT [facility] Spine lumbar series DX Spine lumbar [...] Mian Esparza MD 05/25/14 16:35 FINAL REPORT [facility] ELECTROLYTES Sodium Lvl 140 meq/L 135 - 145 04/13/2014 [facility] ELECTROLYTES Potassium Lvl 3.5 meq/L 3.5 - 5.1 04/13/2014 [facility] ELECTROLYTES CO2 28 meq/L 24 - 32 04/13/2014 [facility] ELECTROLYTES Chloride Lvl 102 meq/L 95 - 109 04/13/2014 [facility] ELECTROLYTES AGAP 13.5 meq/L 10.0 - 20.0 04/13/2014 [facility] Bone Density-Dual Energy Absorptionmetry Bone Density-Dual Energy Absorptionmetry - Bone Density-Dual Energy Absorptionmetry BONE DENSITY EVALUATION: 11/04/2012 CLINICAL DATA: Post menopausal. FINDINGS: Bone density evaluation was performed 11/04/2012 on the AP L1-L4 region of spine using [employer] Dual Energy X-Ray Absorptiometry. The BMD average [...] at normal risk for fracture. Dr. Buddy weiner/ja:11/04/2012 17:26:42 Repair Weaver: Brennen Waite [facility] 11/04/2012 - - Read by: Buddy Sanchez Dictated Date/time: 11/04/12 17:26 Electronically Signed by: Buddy Sanchez MD 11/04/12 17:26 FINAL REPORT [facility]TON[facility] Acevedo Digital Mammo Screening Jorge MA Digital Mammo [...] in one year is recommended. Abiola Aceves sm/penrad:11/16/2012 09:18:44 Repair Weaver: Noé Lowery RT(R)(M), [facility] letter sent: Normal exam Mammogram BI-RADS: 1 Negative 11/04/2012 - - Read by: Abiola Aceves Dictated Date/time: 11/19/12 17:11 Electronically Signed by: Abiola Aceves MD 11/19/12 17:11 FINAL REPORT - - Read by: Abiola Aceves Dictated Date/time: 11/16/12 09:18 Electronically Signed by: Abiola Aceves MD 11/16/12 09:18 FINAL REPORT ANTONIO Acevedo CHEMISTRY U Preg Negative (07/21/2012 05:30:00) Negative 07/21/2012 Normal [facility] Vital Signs Vital Sign Value Date Comments Source Systolic (mm Hg) 115 04/21/2017 [facility] Diastolic (mm Hg) 57 04/21/2017 [facility] Respitory Rate 15 04/21/2017 [facility] Temperature Oral (F) 98.4 F 04/21/2017 [facility] Respitory Rate 15 04/21/2017 [facility] Systolic (mm Hg) 96 04/21/2017 [facility] Diastolic (mm Hg) 55 04/21/2017 [facility] Systolic (mm Hg) 99 04/21/2017 [facility] Diastolic (mm Hg) 50 04/21/2017 [facility] Respitory Rate 14 04/21/2017 [facility] Heart Rate 77 04/21/2017 [facility] Weight 109.091 04/21/2017 [facility] Height 157.48 cm 04/21/2017 [facility] Temperature Oral (F) 98.4 F 04/21/2017 [facility] BMI Calculated 43.99 04/21/2017 [facility] Respitory Rate 20 2016 [facility] Respitory Rate 18 2016 [facility] Systolic (mm Hg) 105 2016 [facility] Diastolic (mm Hg) 89 2016 [facility] Systolic (mm Hg) 150 2016 [facility] Diastolic (mm Hg) 65 2016 [facility] Respitory Rate 16 2016 [facility] Systolic (mm Hg) 116 2016 [facility] Diastolic (mm Hg) 67 2016 [facility] BMI Calculated 42.01 10/10/2016 [facility] Weight 104.176 10/10/2016 [facility] Height 157.48 cm 10/10/2016 [facility] Temperature Oral (F) 98.0 F 10/10/2016 [facility] Heart Rate 92 10/10/2016 [facility] Systolic (mm Hg) 131 04/15/2014 [facility] Diastolic (mm Hg) 84 04/15/2014 [facility] Respitory Rate 12 04/15/2014 [facility] Respitory Rate 20 04/15/2014 [facility] Systolic (mm Hg) 110 04/15/2014 [facility] Diastolic (mm Hg) 56 04/15/2014 [facility] Systolic (mm Hg) 94 04/15/2014 [facility] Respitory Rate 21 04/15/2014 [facility] Diastolic (mm Hg) 54 04/15/2014 [facility] Height 157.48 cm 04/13/2014 [facility] BMI Calculated 36.66 04/13/2014 [facility] Weight 90.909 04/13/2014 [facility] Temperature Oral (F) 98.5 F 04/13/2014 [facility] Diastolic (mm Hg) 54 07/21/2012 [facility] Systolic (mm Hg) 114 07/21/2012 [facility] Respitory Rate 17 07/21/2012 [facility] Respitory Rate 15 07/21/2012 [facility] Diastolic (mm Hg) 59 07/21/2012 [facility] Systolic (mm Hg) 108 07/21/2012 [facility] Diastolic (mm Hg) 68 07/21/2012 [facility] Systolic (mm Hg) 119 07/21/2012 [facility] Respitory Rate 24 07/21/2012 [facility] Heart Rate 85 07/21/2012 [facility] Height 157.48 cm 07/20/2012 [facility] Weight 90.909 07/20/2012 [facility] Heart Rate 78 07/20/2012 [facility] Temperature Oral (F) 98.7 F 07/20/2012 [facility] Systolic (mm Hg) 117 02/26/2012 [facility] Diastolic (mm Hg) 51 02/26/2012 [facility] Respitory Rate 12 02/26/2012 [facility] Systolic (mm Hg) 115 02/26/2012 [facility] Diastolic (mm Hg) 74 02/26/2012 [facility] Respitory Rate 14 02/26/2012 [facility] Systolic (mm Hg) 138 02/26/2012 [facility] Diastolic (mm Hg) 82 02/26/2012 [facility] Respitory Rate 11 02/26/2012 [facility] Weight 104.545 02/26/2012 [facility] Height 157.48 cm 02/26/2012 [facility] Heart Rate 72 02/26/2012 [facility] Respitory Rate 16 01/13/2012 [facility] Systolic (mm Hg) 127 01/13/2012 [facility] Diastolic (mm Hg) 79 01/13/2012 [facility] Respitory Rate 20 01/13/2012 [facility] Diastolic (mm Hg) 89 01/13/2012 [facility] Systolic (mm Hg) 118 01/13/2012 [facility] Diastolic (mm Hg) 97 01/13/2012 [facility] Systolic (mm Hg) 126 01/13/2012 [facility] Respitory Rate 19 01/13/2012 [facility] Temperature Oral (F) 98.7 F 01/07/2012 [facility] Heart Rate 85 01/07/2012 [facility] Weight 104.545 01/07/2012 [facility] Height 157.48 [...] cm 04/10/2011 [facility] Heart Rate 81.0 04/10/2011 [facility] Temperature Oral (F) 97.6 F 04/10/2011 [facility] Encounters Location Location Details Encounter Type Encounter Number Reason For Visit Attending Provider ADM Date DC Date Status Source [facility] DS [id number] BASEM HAMID 04/10/2011 04/10/2011 Active [facility] DS [id number] BASEM HAMID 06/26/2011 06/26/2011 Active [facility] DS [id number] BASEM HAMID 01/13/2012 01/13/2012 Active [facility] DS [id number] BASEM HAMID 02/26/2012 02/26/2012 Active [facility] DS [id number] BASEM HAMID 07/21/2012 07/21/2012 Active [facility] Outpatient [id number] Quita López 12/30/2013 12/31/2013 [facility] OBS Day Surgery [id number] Basem Hamid 04/15/2014 04/15/2014 [facility] Outpatient [id number] Basem Hamid 05/25/2014 05/26/2014 [facility] Outpatient [id number] Non Physician 10/20/2014 10/21/2014 [facility] Outpatient [id number] Quita Soleja 07/31/2015 08/01/2015 [facility] [place] [id number] Rk Whiteside 05/31/2016 06/01/2016 [facility] [place] Outpatient [id number] Basem Hamid 06/25/2016 06/26/2016 [facility] Outpatient [id number] Rk Whiteside 10/21/2016 10/22/2016 [facility] Bedded Outpatient [id number] Raul Brownkim 2016 2016 [facility] Emergency [id number] Zay Iheme 04/21/2017 04/21/2017 [facility] Outpatient [id number] UNK BASEM HAMID Cancel [facility] OD [id number] 715.09 - GENERAL OSTEOAR QUITA SOLEJA Cancel [facility] [place] Procedures Procedure Code Date Perfomer Comments Source Appendectomy 30078130 [facility] Bladder operation [id number] [facility] Cholecystectomy 16238136 [facility] Fusion of lumbar spine [id number] [facility] Hernia repair 63245912 [facility] Hysterectomy 602924458 [facility] Implantation of electronic stimulator of spine 23445749 [facility] Procedure<sup>1</sup> [id number] multiple back procedures [facility] Appendectomy [id number] [facility] [place] Bladder operation [id number] [facility] [place] Cholecystectomy [id number] [facility] [place] Fusion of lumbar spine [id number] [facility] [place] Hernia repair [id number] [facility] [place] Hysterectomy [id number] [facility] [place] Procedure<sup>1</sup> 53531340 multiple back procedures [facility] [place] Procedure <sup>1</sup> [id number] 1multiple back procedures [facility]
[2018-08-26] MEDS ORDERED: SODIUM CHLORIDE 0.9% 1000ML 1,000 ML IV STA (12:19)
--- NOTE | 2018-08-26 12:48 | NUR ---
rec'd pt in rm 11 with c/o abd. pain. pt. stated she took her own percocet and morphine at home at approx. 8:30 this morning.
[2018-08-26 12:56] LABS: BASOPHILS # (AUTO) 0.1 (0.0-0.1); BASOPHILS % 0.8 % (0.0-1.0); EOSINOPHILS # (AUTO) 0.2 (0.0-0.4); EOSINOPHILS % 2.8 % (0.0-6.0); HEMATOCRIT 38.5 % (34.2-44.1); HEMOGLOBIN 12.6 g/dL (12.0-16.0); LYMPHOCYTES # (AUTO) 2.7 (1.0-3.2); LYMPHOCYTES % 41.2 % (18.0-39.1); MEAN CORPUSCULAR HEMOGLOBIN 29.1 pg (28-32); MEAN CORPUSCULAR HGB CONC 32.7 g/dL (31-35); MEAN CORPUSCULAR VOLUME 88.9 fL (81-99); MONOCYTES # (AUTO) 0.5 (0.2-0.8); MONOCYTES % 7.7 % (4.4-11.3); NEUTROPHILS # (AUTO) 3.1 (2.1-6.9); NEUTROPHILS % 47.2 % (38.7-80.0); PLATELET COUNT 317 x10e3/uL (140-360); RED BLOOD COUNT 4.33 x10e6/uL (3.6-5.1)
[2018-08-26] MEDS ORDERED: MORPHINE SULFATE INJ 4 MG/ML INJ 1ML IV ONE (13:00)
--- NOTE | 2018-08-26 13:00 | NUR ---
pt given 4mg iv morphine for abd. pain 02/23. ivf infusing. bed low/locked and call jasmine in hand
[2018-08-26 13:12] LABS: ALANINE AMINOTRANSFERASE 31 IU/L (0-55); ALBUMIN 4.1 g/dL (3.5-5.0); ALBUMIN/GLOBULIN RATIO 1.3 (0.8-2.0); ALKALINE PHOSPHATASE 122 IU/L (40-150); AMYLASE 38 U/L (25-125); ANION GAP 11.3 mmol/L (8-16); BLOOD UREA NITROGEN 16 mg/dL (7-26); BUN/CREATININE RATIO 19 (6-25); CALCIUM 9.5 mg/dL (8.4-10.2); CARBON DIOXIDE 34 mmol/L (22-29); CHLORIDE 94 mmol/L (98-107); CREATININE, SERUM 0.84 mg/dL (0.57-1.11); EST GLOMERULAR FILTRATION RATE > 60 ML/MIN (60-); GLUCOSE 104 mg/dL (74-118); LIPASE 11 U/L (8-78); POTASSIUM 3.3 mmol/L (3.5-5.1); SODIUM 136 mmol/L (136-145)
[2018-08-26 13:16] LABS: CLARITY,URINE CLEAR (CLEAR); COLOR,URINE YELLOW (YELLOW)
[2018-08-26 13:17] LABS: BILIRUBIN,URINE NEGATIVE (NEGATIVE); KETONES,URINE NEGATIVE (NEGATIVE); LEUKOCYTE ESTERASE ,URINE NEGATIVE (NEGATIVE); NITRITE,URINE NEGATIVE (NEGATIVE); PROTEIN,URINE DIPSTICK NEGATIVE (NEGATIVE); URINE UROBILINOGEN 0.2 mg/dL (0.2 - 1)
[2018-08-26 13:25] LABS: BACTERIA,URINE MODERATE /HPF; EPITHELIAL CELLS,URINE MANY /LPF; TRANSITIONAL EPI CELLS,URINE FEW
[2018-08-26 13:31] LABS: THYROID STIMULATING HORMONE 1.067 uIU/mL (0.350-4.940)
--- NOTE | 2018-08-26 13:51 | NUR ---
PRIOR TO LEAVING FOR CT PT. STATED, "Are they going to give me some dilaudid before i leave.?" it was explaind to the pt that her bp is too low at this time.
[2018-08-26] MEDS ORDERED: IOPAMIDOL 370 MG/ML 200 ML INFUS..BTL INJ ONE (14:25)
[2018-08-26] MEDS ORDERED: SODIUM CHLORIDE 0.9% 50ML 50 ML ONE (14:25)
--- NOTE | 2018-08-26 16:54 | Diagnostic Imaging Report ---
EXAM: CT Abdomen and Pelvis WITH contrast INDICATION: Periumbilical and right groin pain COMPARISON: CT abdomen/pelvis, 05/16/2018 TECHNIQUE: Abdomen and pelvis were scanned utilizing a multidetector helical scanner from the lung base to the pubic symphysis after administration of IV contrast. Coronal and sagittal reformations were obtained. Routine protocol was performed. Scan was performed when during portal venous phase. Dose modulation, iterative reconstruction, and/or weight based adjustment of the mA/kV was utilized to reduce the radiation dose to as low as reasonably achievable. IV CONTRAST: 100 mL of Isovue-370 ORAL CONTRAST: 450 cc water RADIATION DOSE: Total DLP: 499.18 mGy*cm Estimated effective dose: (DLP x 0.015 x size factor) mSv COMPLICATIONS: None FINDINGS: LINES and TUBES: There is an implanted electronic device in the right buttock with electrodes extending into the spinal canal, ascending into the thoracic area. LOWER THORAX: Mild atelectasis at the lung bases. Heart size normal. HEPATOBILIARY: No focal hepatic lesions. Dilated common duct, stable from last exam, likely related to postcholecystectomy reservoir effect. GALLBLADDER: Surgical absence of the gallbladder with cholecystectomy clips. SPLEEN: No splenomegaly. PANCREAS: No focal masses or ductal dilatation. ADRENALS: No adrenal nodules KIDNEYS/URETERS: Kidneys enhance symmetrically. No hydronephrosis. No cystic or solid mass lesions. No stones. GI TRACT: No abnormal distention, wall thickening, or evidence of bowel obstruction. There are surgical changes of the fundus and body of the stomach. Small hiatus hernia. Appendix is surgically absent according to history PELVIC ORGANS/BLADDER: Urinary bladder appears unremarkable. The uterus is surgically absent by history. No discrete abnormal mass or fluid collection in the pelvis. LYMPH NODES: No dominant lymph node mass is seen in the abdomen, retroperitoneum or pelvis. VESSELS: Abdominal aorta, IVC and portal system appear unremarkable. PERITONEUM / RETROPERITONEUM: No pneumoperitoneum or ascites. BONES: No acute or suspicious bony lesions. There are postoperative changes with hardware in the lower lumbar spine. SOFT TISSUES: Superficial surrounding soft tissue unremarkable. Mild subcutaneous stranding in the region of the umbilicus likely related to previous surgery. IMPRESSION: 1. No CT evidence for acute abdominal or pelvic pathology. 2. The marked small bowel dilatation noted on previous exam has resolved. Fluid content small bowel loops is likely related to water contrast for exam. Staff: Carmen Signed by: Dr. Praneeth Morales M.D. on 08/26/2018 4:51 PM
== END 2018-08-26 17:23 | disposition home or self-care (01) ==
LOC: ER 12:05
DX: R10.33 Periumbilical pain (principal); X50.0XXA Overexertion from strenuous movement or load, initial encounter; I10 Essential (primary) hypertension; E78.5 Hyperlipidemia, unspecified; F41.9 Anxiety disorder, unspecified; K21.9 Gastro-esophageal reflux disease without esophagitis; Z87.11 Personal history of peptic ulcer disease
CPT/HCPCS: 36415; 74177; 80053; 81001; 82150; 83690; 83735; 84443; 85025; 99284; J2270; J7030; Q9967